=== PATIENT | female | born 1990 | race Caucasian/White ===

== ENCOUNTER → 2020-03-27 10:43 | Outpatient (BNVA) | payer MEDICAID, SELFPAY | PROVIDERS: Family Provider Family Medicine; PCP Family Medicine; Visit Provider Nurse Practitioner Women's Health | DX: O99.411 Diseases of the circulatory system complicating pregnancy, first trimester (principal); I34.1 Nonrheumatic mitral (valve) prolapse; O99.321 Drug use complicating pregnancy, first trimester; Z3A.08 8 weeks gestation of pregnancy; F12.90 Cannabis use, unspecified, uncomplicated; O99.611 Diseases of the digestive system complicating pregnancy, first trimester; K58.0 Irritable bowel syndrome with diarrhea | CPT/HCPCS: 80053; 80307; 84315 ==

== ENCOUNTER → 2020-04-15 10:02 | Outpatient (BNVA) | payer MEDICAID, SELFPAY | PROVIDERS: Family Provider Family Medicine; PCP Family Medicine; Visit Provider Obstetrics & Gynecology | DX: O09.899 Supervision of other high risk pregnancies, unspecified trimester (principal); O99.89 Other specified diseases and conditions complicating pregnancy, childbirth and the puerperium; R82.71 Bacteriuria | CPT/HCPCS: 80307; 81000; 85027; 86592; 86762; 86803; 86850; 86900; 87340 ==

== ENCOUNTER → 2020-04-16 09:09 | Outpatient (BNVA) | payer MEDICAID, SELFPAY | PROVIDERS: Family Provider Family Medicine; PCP Family Medicine; Visit Provider Obstetrics & Gynecology | DX: Z34.91 Encounter for supervision of normal pregnancy, unspecified, first trimester (principal); Z3A.11 11 weeks gestation of pregnancy | CPT/HCPCS: 76801 ==

== ENCOUNTER 2020-04-28 10:56 | Observation (INO) | payer MEDICAID, SELFPAY ==
[2020-04-28] VITALS (14 sets, daily range): BP systolic 0–129; BP diastolic 0–71; PULSE 64–86; RESP 16–18; TEMP 36.3–36.8; O2SAT 96–100; BMI 27.4
--- NOTE | 2020-04-28 11:30 | XRR_ITS ---
PROCEDURE INFORMATION: Exam: XR Chest, 1 View Exam date and time: 04/28/2020 11:31 AM Age: 29 years old Clinical indication: Dyspnea TECHNIQUE: Imaging protocol: XR of the chest Views: . Frontal portable upright view of the chest. COMPARISON: CR Chest 1 [place] [id number] 08/11/2019 1:17 PM FINDINGS: Lungs: The lungs are otherwise clear bilaterally. The pulmonary vasculature is normal. Pleural space: No pleural effusion. No pneumothorax. Heart/Mediastinum: The heart is normal in size and contour. Mediastinum: Stable. Bones/joints: Stable. Other findings: Mild pulmonary hyperexpansion. XR/XR chest 1V portable [id number] IMPRESSION: Mild pulmonary hyperexpansion.
--- NOTE | 2020-04-28 11:30 | ECG_ITS ---
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 Measurements Intervals [place] Rate: 61 P: 35 WV: 137 QRS: 91 QRSD: 96 T: 63 QT: 446 QTc: 450 Interpretive Statements SINUS RHYTHM WITH MARKED SINUS ARRHYTHMIA BORDERLINE RIGHT AXIS DEVIATION [QRS AXIS > 90] Compared to ECG 08/11/2019 13:18:19 Incomplete right bundle-branch block no longer present Electronically Signed On 04-29-2020 21:32:24 CDT by Yoselyn Perez M.D. [id number]
[2020-04-28 11:50] LABS: Basophils # 0.1 10^3/uL (0.0-0.1); Basophils % 0.4 %; Eosinophils % 0.2 %; Hematocrit 31.3 % (37.0-47.0); Hemoglobin 10.8 g/dL (11.5-15.3); Lymphocytes # 1.3 10^3/uL (0.8-4.8); Lymphocytes % 9.6 %; Mean Corpuscular HGB Conc 34.5 g/dL (30.0-36.0); Mean Corpuscular Hemoglobin 32.6 pg (28.0-34.0); Mean Corpuscular Volume 94.6 fL (81-99); Mean Platelet Volume 10.1 fL (7.4-10.4); Monocytes # 0.3 10^3/uL (0.2-0.9); Monocytes % 2.6 %; Neutrophils # 11.34 10^3/uL (1.8-7.7); Neutrophils % 86.8 %; Nucleated Red Blood Cells % 0 %; Platelet Count 228 10^3/cmm (130-400); Red Blood Count 3.31 10^6/uL (4.1-5.3); Red Cell Distribution Width 12.2 % (12.1-15.1); White Blood Count 13.1 10^3/uL (4.0-10.0)
[2020-04-28 12:17] LABS: Troponin(5th) Baseline 6 ng/L (0-10)
[2020-04-28] MEDS: metoclopramide 5 mg/mL SDV 2 mL 10 MG IV (12:20)
[2020-04-28] MEDS: morphine 4 mg/mL SDV 1 mL 2 MG IVP (12:20)
[2020-04-28 12:30] LABS: Alanine Aminotransferase 10 U/L (0-33); Albumin Level 4.3 g/dL (3.5-5.2); Alkaline Phosphatase 40 IU/L (35-105); Anion Gap 17.2 (5-19); Aspartate Amino Transferase 18 U/L (0-32); Blood Urea Nitrogen 7 mg/dL (6-20); Calcium 9.5 mg/dL (8.5-10.5); Carbon Dioxide 17 mmol/L (22-29); Chloride 101 mmol/L (98-107); Glomerular Filtration Rate 143.9 mL/min (90-130); Glucose 111 mg/dL (65-115); Lipase 19 U/L (13-60); Magnesium 1.8 mg/dL (1.7-2.3); Osmolality Calculated 271 mOsm/kg (285-295); Potassium 3.2 mmol/L (3.5-5.1); Sodium 132 mmol/L (136-145); Total Bilirubin 0.3 mg/dL (0.15-1.2); Total Protein 7.3 g/dL (6.6-8.7)
[2020-04-28] MEDS: promethazine 25 mg/mL SDV 1 mL IM (12:42)
[2020-04-28] MEDS: sodium chloride 0.9% 1,000 ML 999 ML IV ×2 (12:42→14:43)
--- NOTE | 2020-04-28 13:18 | USR_ITS ---
PROCEDURE INFORMATION: Exam: US Abdomen Complete Exam date and time: 04/28/2020 2:03 PM Age: 29 years old Clinical indication: Abdominal pain; Generalized; TECHNIQUE: Imaging protocol: Real-time ultrasound of the abdomen with image documentation. COMPARISON: US OB <= 14 weeks fetus [id number] 04/28/2020 1:36 PM FINDINGS: Liver: The liver measures 14.4 cm in the midclavicular plane. Unremarkable. Gallbladder: The gallbladder wall measures 2.6 mm. No gallstones. Common bile duct: The common bile duct measures 2.0 mm. No ductal calculi as visualized. Pancreas: Unremarkable. Right kidney: The right kidney measures 11.3 x 4.7 x 4.8 cm. The renal cortex measures 1.0 cm. Unremarkable. A brief color Doppler examination of the right kidney was performed showing normal color shifts. Left kidney: The left kidney measures 10.6 x 6.2 x 4.6 cm. The renal cortex measures 1.1 cm. Unremarkable. A brief color Doppler examination of the left kidney was performed showing normal color shifts. Spleen: The spleen measures 8.6 cm. Unremarkable. Aorta: NotThe proximal abdominal aorta measures 1.3 cm. The mid abdominal aorta measures 1.1 cm. The distal infrarenal abdominal aorta measures 0.9 cm. Inferior vena cava: Unremarkable IVC. Portal venous: A brief color and pulsed Doppler examination of the portal vein was performed showing normal hepatopedal flow. US/US abdomen complete* [id number] IMPRESSION: No acute abdominal abnormality identified.
--- NOTE | 2020-04-28 13:18 | USR_ITS ---
PROCEDURE INFORMATION: Exam: US First Trimester, Transabdominal Exam date and time: 04/28/2020 1:47 PM Age: 29 years old Clinical indication: complicated by abdominal or pelvic pain; Generalized abdominal pain; First trimester; Gestational age or lmp: Aicha per patient 2--21. Ga 12w 5d; TECHNIQUE: Imaging protocol: Real-time transabdominal obstetrical ultrasound of the maternal pelvis and a first trimester , less than 14 weeks 0 days, with image documentation. COMPARISON: US OB <= 14 weeks fetus [id number] 04/16/2020 9:09 AM FINDINGS: Gestation: Single living intrauterine fetus. Heart rate: 144 beats per minute. Presentation: Variable position. Placenta: Anterior grade 0 placenta, no previa. Amniotic fluid: Amniotic fluid is normal for gestational age. BIOMETRY: Estimated gestational age: Average ultrasound age: 12 weeks 5 days [place]-Rump length: 12 weeks 5 days. Estimated due date: AICHA 11/05/2019; compare LMP AICHA 11/05/2019. MATERNAL: Uterus: Uterus 11.9 x 8.3 x 8.7 cm. Cervix: The cervical length is 2.78 cm. Closed. Right adnexa: Not visualized. Left adnexa: Not visualized. Intraperitoneal space: No intraperitoneal free fluid. US/US OB <= 14 weeks fetus [id number] IMPRESSION: Single living intrauterine fetus. Size concordant with dates. No acute abnormality identified.
--- NOTE | 2020-04-28 13:35 | W.ED.NAVMDI ---
HPI - Nausea/Vomiting/Diarrhea General: Chief complaint: Nausea/Vomiting/Diarrhea Stated complaint: N/V/D/13 WEEKS PREG Time Seen by Provider: 04/28/20 11:20 Source: patient Mode of arrival: ambulatory Limitations: no limitations History of Present Illness: HPI Narrative: Hayden is a nice 29-year-old female who comes in complaining of nausea vomiting and diarrhea. She states she felt fine when she woke up this morning but after she had some food she began to feel nauseated and sick. She has some suprapubic pain but denies any vaginal bleeding. She denies fevers or chills. She does have cramping abdominal pain. Patient denies any chest pain but does have intermittent shortness of breath and according to bystanders she is nearly passed out at times upon standing. Again she denies any chest pain or palpitations. Patient states she has a history of problems with her stomach that are ongoing and she cannot tolerate multiple medications. She is unaware of anything that makes her symptoms better or worse at this time. Associated nausea: Yes Associated symtoms: Reports nausea; Denies change in vision, chest pain, diaphoresis, dizziness, dysuria, fatigue, headache(s), malaise, palpitations or syncope Review of Systems Const: Denies: fever(s), chills, body aches, fatigue, malaise or diaphoresis Eyes: Denies: change in vision, blurry vision, blind spots, photophobia, eye discharge or eye redness ENMT: Denies: throat pain, odynophagia, hoarseness, swelling of lips/tongue, oral sores, ear or mastoid pain, ear discharge, change in hearing or nasal discharge Card: Denies: chest pain, palpitations, irregular heart rhythm, edema, lightheadedness, syncope, pre-syncope, dyspnea on exertion or orthopnea Resp: Denies: dyspnea, productive cough, non-productive cough, wheezing, hemoptysis or chest congestion GI: Reports: abdominal pain, nausea, vomiting and diarrhea; Denies: hematemesis, coffee ground emesis, heartburn, constipation, GI cramping, hematochezia or melena : Denies: flank pain, dysuria, urinary frequency, urinary urgency or hematuria Musc: Denies: neck pain, back pain, extremity pain, extremity swelling, joint pain, joint swelling, joint redness, joint warmth or joint stiffness Skin/Breast: Denies: rash, pruritus, erythema, skin tenderness or jaundice Neuro: Denies: headache(s), numbness in extremities, weakness in extremities, sensory changes, lack of coordination, difficulty walking, dizziness, vertigo, confusion, Slurred speech present or seizure-like activity Baljit/Lymph: Denies: easy bruising, easy bleeding, petechiae, purpura or enlarged lymph nodes All/Imm: Denies: urticaria, throat swelling, tongue swelling, facial swelling or acute wheezing PFSH ED PFSH: Medical History Anxiety IBS (irritable bowel syndrome) more diarrhea Mitral valve prolapse Surgical History H/O lumpectomy Left breast lumpectomy - benign per patient at age 15. History of tonsillectomy (~1996) Family History Mother Hypertension Hyperlipidemia Grandmother Stroke Paternal grandmother Breast cancer Paternal great grandmother Sister Family history of thyroid problem Denies family history of Colon cancer Ovarian cancer Diabetes Heart disease Uterine cancer Social History Additional social history: - Tobacco use: Past use; quit in 2015 Alcohol use: Social before Drug use: Marijuana; last use 03/2020-- denies use prior to this except for Physical Exam Const: COMMON NORMALS: no acute distress, patient oriented x3, no limitations, healthy appearing and well nourished GENERAL APPEARANCE: cooperative, well kempt and well developed HENMT: COMMON NORMALS: normocephalic, atraumatic, external ears normal, EAC's normal and Normal external nose present HEAD & SCALP: normal to inspection, normocephalic and atraumatic FACE & SINUS: normal facial exam and face symmetric NOSE: Normal external nose present and Normal nares present EXTERNAL EAR: Yes external ears normal EXTERNAL AUDITORY CANAL: EAC's normal MOUTH: Normal oral and palatal mucosa present, lip normal and tongue normal Eye: COMMON NORMALS: Equal, round and reactive pupils present and conjunctivae normal GENERAL EYE: appearance normal, both eyes and all related structures ALIGNMENT: Yes alignment normal PERIORBITAL: periorbital findings normal EYELID: eyelids normal CONJUNCTIVA: Yes conjunctivae normal SCLERA: sclerae normal PUPIL: Yes Equal, round and reactive pupils present Neck/C-Spine: COMMON NORMALS: full ROM, no lymphadenopathy, supple, no meningeal signs and no JVD GENERAL: Yes normal visual inspection and Yes trachea midline Chest: COMMONS NORMALS: normal inspection of the chest and normal palpation of entire chest wall Resp: COMMON NORMALS: normal respiratory effort, No retractions and No use of accessory muscles EFFORT & INSPECTION: Yes able to speak in complete sentences and Yes symmetric chest movement AUSCULTATION: no crackles, no rales, no rhonchi and no wheezes Cardio: COMMON NORMALS: no JVD, regular rate, regular rhythm, S1 normal heart sound present and S2 normal heart sound present RATE: regular rate RHYTHM: regular rhythm HEART SOUNDS: S1 normal heart sound present, S2 normal heart sound present, no click, no gallops, no murmurs, no rubs and abnormal split S2 GI: COMMON NORMALS: Soft to palpation and No hepatosplenomegaly present PALPATION: Yes Soft to palpation, No Tenderness to palpation present (GI), No Guarding due to palpation present (GI), No Rigid due to palpation, Yes No hepatosplenomegaly present, No Hernia present, No Palpable mass present and No Pulsatile mass present : COMMON NORMALS: Yes no CVA tenderness BLADDER/KIDNEY EXAM: Yes no CVA tenderness EXTERNAL FEMALE EXAM: No Hernia present Back/Pelvis: COMMON NORMALS: no CVA tenderness, thoracic and lumbar spine normal to inspection, no thoracic nor lumbar tenderness and thoraco-lumbar ROM normal Extremity: COMMON NORMALS: normal to inspection, full ROM, capillary refill normal, no joint enlargement, no clubbing, cyanosis or edema and no calf tenderness Neuro: COMMON NORMALS: patient oriented x3, CN's II-XII intact bilaterally, moves all extremities, no focal motor deficits and no sensory deficits noted MENINGEAL SIGNS: Yes no meningeal signs SPEECH: speech normal Psych: COMMON NORMALS: mental status grossly normal, Normal thought process present, cooperative, normal affect, speech normal and activity/motor behavior normal APPEARANCE: Yes well kempt SPEECH: Yes normal speech THOUGHT PROCESS: Normal thought process present Skin: COMMON NORMALS: no rashes or lesions noted, turgor normal, no jaundice, no petechiae and no mottling GENERAL SKIN EXAM: no rashes or lesions noted and turgor normal Course Vital Signs: Vital signs: Vital Signs Temperature 97.4 F L 04/28/20 11:04 Pulse Rate 75 04/28/20 14:52 Respiratory Rate 18 04/28/20 14:52 Blood Pressure 106/55 04/28/20 14:52 Pulse Oximetry 96 04/28/20 14:52 MDM - Nausea/Vomiting/Diarrhea MDM Narrative: Medical decision making narrative: Patient has not had any diarrhea or fever here. Her white count is within normal limits for a patient. Her abdominal cramping is gone but she is still severely nauseous and cannot tolerate taking anything by mouth. On reexamination I do not find signs of a surgical abdomen. I have reviewed the case in full with Dr. Escamilla and she agrees to accept the patient to the floor for further work-up and care. Lab Data: Attestation: I reviewed the patient's lab results. Labs: Lab Results 04/28/20 04/28/20 04/28/20 Range/Units 11:43 11:43 11:43 WBC 13.1 H (4.0-10.0) 10^3/ uL RBC 3.31 L (4.1-5.3) 10^6/u L Hgb 10.8 L (11.5-15.3) g/dL Hct 31.3 L (37.0-47.0) % MCV 94.6 (81-99) fL MCH 32.6 (28.0-34.0) pg MCHC 34.5 (30.0-36.0) g/dL RDW 12.2 (12.1-15.1) % Plt Count 228 (130-400) 10^3/c mm MPV 10.1 (7.4-10.4) fL Neut % (Auto) 86.8 % Lymph % (Auto) 9.6 % [place] % (Auto) 2.6 % Eos % (Auto) 0.2 % Baso % (Auto) 0.4 % Neut # (Auto) 11.34 H (1.8-7.7) 10^3/u L Lymph # (Auto) 1.3 (0.8-4.8) 10^3/u L [place] # (Auto) 0.3 (0.2-0.9) 10^3/u L Eos # (Auto) 0.0 (0.0-0.8) 10^3/u L Baso # (Auto) 0.1 (0.0-0.1) 10^3/u L Nucleated RBC % (a uto) 0 % Nucleated RBCs # 0.0 /100WBC Sodium 132 L (136-145) mmol/L Potassium 3.2 L (3.5-5.1) mmol/L Chloride 101 (98-107) mmol/L Carbon Dioxide 17 L (22-29) mmol/L Anion Gap 17.2 (5-19) BUN 7 (6-20) mg/dL Creatinine 0.5 (0.5-0.9) mg/dL GFR Calculation 143.9 H (90-130) mL/min Glucose 111 (65-115) mg/dL Calculated Osmolal ity 271 L (285-295) mOsm/k g Calcium 9.5 (8.5-10.5) mg/dL Magnesium 1.8 (1.7-2.3) mg/dL Total Bilirubin 0.3 (0.15-1.2) mg/dL AST 18 (0-32) U/L ALT 10 (0-33) U/L Alkaline Phosphata se 40 (35-105) IU/L Troponin T Baselin e 6 (0-10) ng/L Troponin T 120 Min [place] (0-10) ng/L Delta Troponin T (0-10) ABS# Total Protein 7.3 (6.6-8.7) g/dL Albumin 4.3 (3.5-5.2) g/dL Globulin 3.0 (1.3-4.6) g/dL Lipase 19 (13-60) U/L Ser , [place]Qnt 13008.00 mIU/mL 04/28/20 Range/Units 13:35 WBC (4.0-10.0) 10^3/ uL RBC (4.1-5.3) 10^6/u L Hgb (11.5-15.3) g/dL Hct (37.0-47.0) % MCV (81-99) fL MCH (28.0-34.0) pg MCHC (30.0-36.0) g/dL RDW (12.1-15.1) % Plt Count (130-400) 10^3/c mm MPV (7.4-10.4) fL Neut % (Auto) % Lymph % (Auto) % [place] % (Auto) % Eos % (Auto) % Baso % (Auto) % Neut # (Auto) (1.8-7.7) 10^3/u L Lymph # (Auto) (0.8-4.8) 10^3/u L [place] # (Auto) (0.2-0.9) 10^3/u L Eos # (Auto) (0.0-0.8) 10^3/u L Baso # (Auto) (0.0-0.1) 10^3/u L Nucleated RBC % (a uto) % Nucleated RBCs # /100WBC Sodium (136-145) mmol/L Potassium (3.5-5.1) mmol/L Chloride (98-107) mmol/L Carbon Dioxide (22-29) mmol/L Anion Gap (5-19) BUN (6-20) mg/dL Creatinine (0.5-0.9) mg/dL GFR Calculation (90-130) mL/min Glucose (65-115) mg/dL Calculated Osmolal ity (285-295) mOsm/k g Calcium (8.5-10.5) mg/dL Magnesium (1.7-2.3) mg/dL Total Bilirubin (0.15-1.2) mg/dL AST (0-32) U/L ALT (0-33) U/L Alkaline Phosphata se (35-105) IU/L Troponin T Baselin e (0-10) ng/L Troponin T 120 Min [place] 6.00 (0-10) ng/L Delta Troponin T 0 (0-10) ABS# Total Protein (6.6-8.7) g/dL Albumin (3.5-5.2) g/dL Globulin (1.3-4.6) g/dL Lipase (13-60) U/L Ser , Shyam i-Qnt mIU/mL Imaging Data^: US: Radiologist's impression: [address] [address] Ultrasound Report Signed Patient: Hayden Stewart Unit #: [id number] : 1990 Age/Sex: 29 / F ADM Date: 04/28/20 Loc: ER Room/Bed: Attending Dr: Ordering Provider/Ordering MD: Carmenza Barreto DO Date of Service: 04/28/20 Procedure(s): US abdomen complete* [id number] Accession Number(s): [id number] Report Number: [id number] PROCEDURE INFORMATION: Exam: US Abdomen Complete Exam date and time: 04/28/2020 2:03 PM Age: 29 years old Clinical indication: Abdominal pain; Generalized; TECHNIQUE: Imaging protocol: Real-time ultrasound of the abdomen with image documentation. COMPARISON: US OB <= 14 weeks fetus [id number] 04/28/2020 1:36 PM FINDINGS: Liver: The liver measures 14.4 cm in the midclavicular plane. Unremarkable. Gallbladder: The gallbladder wall measures 2.6 mm. No gallstones. Common bile duct: The common bile duct measures 2.0 mm. No ductal calculi as visualized. Pancreas: Unremarkable. Right kidney: The right kidney measures 11.3 x 4.7 x 4.8 cm. The renal cortex measures 1.0 cm. Unremarkable. A brief color Doppler examination of the right kidney was performed showing normal color shifts. Left kidney: The left kidney measures 10.6 x 6.2 x 4.6 cm. The renal cortex measures 1.1 cm. Unremarkable. A brief color Doppler examination of the left kidney was performed showing normal color shifts. Spleen: The spleen measures 8.6 cm. Unremarkable. Aorta: NotThe proximal abdominal aorta measures 1.3 cm. The mid abdominal aorta measures 1.1 cm. The distal infrarenal abdominal aorta measures 0.9 cm. Inferior vena cava: Unremarkable IVC. Portal venous: A brief color and pulsed Doppler examination of the portal vein was performed showing normal hepatopedal flow. US/US abdomen complete* [id number] IMPRESSION: No acute abdominal abnormality identified. Dictated By: Nico Lima MD Signed By: Nico Lima MD Signed Date/Time: 04/28/201433 DD/ 1433 US OB: Radiologist's impression: [address] [place] [address] Ultrasound Report Signed Patient: Hayden Stewart Unit #: [id number] : 1990 Age/Sex: 29 / F ADM Date: 04/28/20 Loc: ER Room/Bed: Attending Dr: Ordering Provider/Ordering MD: Carmenza Barreto DO Date of Service: 04/28/20 Procedure(s): US OB <= 14 weeks fetus [id number] Accession Number(s): [id number] Report Number: [id number] PROCEDURE INFORMATION: Exam: US First Trimester, Transabdominal Exam date and time: 04/28/2020 1:47 PM Age: 29 years old Clinical indication: complicated by abdominal or pelvic pain; Generalized abdominal pain; First trimester; Gestational age or lmp: Aicha per patient 11-05-20. Ga 12w 5d; TECHNIQUE: Imaging protocol: Real-time transabdominal obstetrical ultrasound of the maternal pelvis and a first trimester , less than 14 weeks 0 days, with image documentation. COMPARISON: US OB <= 14 weeks fetus [id number] 04/16/2020 9:09 AM FINDINGS: Gestation: Single living intrauterine fetus. Heart rate: 144 beats per minute. Presentation: Variable position. Placenta: Anterior grade 0 placenta, no previa. Amniotic fluid: Amniotic fluid is normal for gestational age. BIOMETRY: Estimated gestational age: Average ultrasound age: 12 weeks 5 days [place]-Rump length: 12 weeks 5 days. Estimated due date: AICHA 11/05/2019; compare LMP AICHA 11/05/2019. MATERNAL: Uterus: Uterus 11.9 x 8.3 x 8.7 cm. Cervix: The cervical length is 2.78 cm. Closed. Right adnexa: Not visualized. Left adnexa: Not visualized. Intraperitoneal space: No intraperitoneal free fluid. US/US OB <= 14 weeks fetus [id number] IMPRESSION: Single living intrauterine fetus. Size concordant with dates. No acute abnormality identified. Dictated By: Nico Lima MD Signed By: Nico Lima MD Signed Date/Time: 04/28/20 143 DD/ 143 EKG Data^: EKG 1: Attestation: I personally reviewed and interpreted this EKG as follows: EKG interpretation date: 04/28/20 EKG interpretation time: 12:59 Interpretation: Normal sinus rhythm at 61 beats a minute without any acute ST-T wave changes. No blocks, normal intervals. Discharge Plan Discharge Patient Disposition: Admitted As Inpatient Admit Provider: Vaishali Mukherjee Clinical Impression: Acute dehydration Intractable vomiting Qualifiers: Vomiting type: unspecified Nausea presence: with nausea Qualified Code(s): R11.2 - Nausea with vomiting, unspecified Condition: Stable Discharge Date/Time: 04/28/20 15:03 Coding Level of Care Code ED Assistant Branch Operations Manager for Chg Fwd Exam Comprehensive
[2020-04-28 14:08] LABS: Troponin 5 2HR Delta 0 ABS# (0-10)
[2020-04-28 14:52] LABS: Urine Appearance Clear (CLEAR); Urine Color Yellow (Yellow); pH Urine 6 (5-7)
[2020-04-28 14:53] LABS: Add Urine Culture? No; Bacteria Urine 1+; Bilirubin Urine Neg (NEGATIVE); Blood Urine Neg (Negative); Glucose Urine UA Norm (Normal); Ketones Urine Negative (Negative); Leukocyte Esterase Urine Negative (Negative); Nitrate Urine Negative (Negative); Protein Urine Neg (Negative); Urobilinogen Urine Norm (Negative)
--- NOTE | 2020-04-28 15:03 | PC.NURSE ---
k rider stopped prior to floor transfer due to pump issues and portable monitor unavailable for use
[2020-04-28] MEDS: ondansetron 2 mg/ML SDV 2 mL 4 MG IVP (15:42)
[2020-04-28] MEDS: D5-NS 0.45% + KCL 20 mEq 20 MEQ/1,000 ML BAG 150 MEQ IV (16:00)
--- NOTE | 2020-04-28 16:17 | PC.NURSE ---
Patient demanding to shower r/t her anxiety at this time. Patient's IV covered and patient up to shower. Will continue to monitor closely.
--- NOTE | 2020-04-28 17:26 | PC.NURSE ---
Medical Assistant in to see patient and explain visiting hours to guest. Patient sitting in the floor of shower with IV covered with wash cloth. Patient informed that if IV gets disconnected or comes out that a new one would need to be initiated. Medical Assistant explained to patient why patient needed IV hydration with potassium. Patient verbalized understanding and states she will keep IV dry but she has to be in the shower as its the only thing that calms her down. Will continue to monitor.
[2020-04-28] MEDS: metoclopramide 5 mg/mL SDV 2 mL IVP (17:43)
[2020-04-28] MEDS: promethazine 25 mg Tablet PO (19:07)
[2020-04-28 19:23] LABS: Amphetamines Screen Urine Negative (Negative); Barbiturates Screen Urine Negative (Negative); Benzodiazepines Screen Urine Negative (Negative); Cocaine Screen Urine Negative (Negative); Opiate Screen Urine Negative (Negative); PCP Screen Urine Negative (Negative); THC Screen Urine Positive (Negative)
--- NOTE | 2020-04-28 20:21 | PC.NURSE ---
Pt. stated that she was getting heartburn and wanted her water back. Pt. was informed that she was npo. Pt. was educated on why she was npo. Pt. then wanted to get up and take a shower. Pt. informed that she needed to let her IV fluid run longer and that I would let her shower at 2200. Pt. voiced understanding.
[2020-04-29] MEDS: D5-NS 0.45% + KCL 20 mEq 20 MEQ/1,000 ML BAG 150 MEQ IV ×2 (00:04→06:35)
[2020-04-29] MEDS: promethazine 25 mg Tablet PO (01:53)
[2020-04-29] MEDS: metoclopramide 5 mg/mL SDV 2 mL IVP (02:36)
[2020-04-29 04:28] VITALS: BP 124/62; PULSE 56
[2020-04-29 04:30] VITALS: BP 124/62; PULSE 56; RESP 16; TEMP 37.2
--- NOTE | 2020-04-29 06:10 | PC.NURSE ---
4 oz of Sprite was left at pts. bedside.
[2020-04-29] MEDS: metoclopramide 10 mg Tablet 5 MG PO (10:20)
[2020-04-29 10:24] VITALS: BP 98/45; PULSE 72; RESP 18; TEMP 36.9
--- NOTE | 2020-04-29 11:02 | PC.NURSE ---
Patient states shes feeling good. No nausea. Crackers given at this time.
--- NOTE | 2020-04-29 11:45 | PC.NURSE ---
REGULAR BLAND DIET GIVEN FOR LUNCH AT THIS TIME.
--- NOTE | 2020-04-29 12:46 | P.DS_ITS ---
Discharge Providers Date of Admission: 04/28/20 14:15 Date of Discharge: April 29, 2020 Attending Provider at Admission: Vaishali Mukherjee MD Attending Provider at Discharge: Vaishali Mukherjee MD Primary Care Provider: Carly Alvarez DO Reason for Visit Reason for Visit: N/V/D/13 WEEKS PREG Hospital Course Discharge Summary: Ms. Stewart is a 29-year-old 4 para 2-0-1-2 at 12+ week gestation who came to the emergency room on 04/28/2020 with reports of nausea, vomiting and diarrhea. She was unable to keep anything down and was not taking any medications for nausea. She does report having mitral valve prolapse however was not taking any medication on the recommendation of her director of enterprise architecture until she had her visit with the BUDGET OFFICER. She denies any vaginal bleeding, abdominal pain. She feels like she may have eaten something that does not agree with her. She denies chest pain, shortness of breath, fever, chills. On e valuation in the emergency room labs were within normal limits except for low potassium and as she felt very weak and tired and was unable to keep down any food decision was made to observe her overnight. -She was initially kept n.p.o. and was given Phenergan and Reglan and 1 dose of Zofran to help control nausea. This helped her symptoms well and overnight she remained asymptomatic and was given a bland regular diet the next morning after she was able to tolerate clears. She had a couple more episodes of diarrhea and after that had more solid forming stools. She had no episodes of vomiting while in the hospital. The next morning she continued to do well and overall felt much better after IV fluid hydration and potassium replacement. She was discharged home in a stable condition and was scheduled to follow-up with her primary OB Dr. Olsen in 2 days. -She was sent home with a prescription of Reglan to be taken on schedule to prevent nausea. She was educated thoroughly about nausea and vomiting in . Discharge Data Data Completed and Pending: Completed Studies During Hospitalization Category Date Time Status XR chest 1V julio ble [id number] Stat Exams 04/28/20 11:30 Completed US OB <= 14 weeks fetus [id number] Urgen t Ultrasound 04/28/20 13:18 Completed US abdomen comple te* [id number] Urgent Ultrasound 04/28/20 13:18 Completed Labs from last 24 hours 04/28/20 04/28/20 04/28/20 14:20 14:20 13:35 Troponin T 120 Min [place] 6.00 Delta Troponin T 0 Urine Color Yellow Urine Appearance Clear Urine pH 6 Ur Specific Gravit y 1.020 Urine Protein Neg Urine Glucose (UA) Norm Urine Ketones Negative Urine Blood Neg Urine Nitrate Negative Urine Bilirubin Neg Urine Urobilinogen Norm Ur Leukocyte Leonela ase Negative Urine RBC None Urine WBC None Ur Squamous Epith Cells 5-10 H Amorphous Sediment Not Reportable Urine Bacteria 1+ H Urine Opiates Scre en Negative Ur Barbiturates Sc reen Negative Ur Phencyclidine S crn Negative Ur Amphetamines Sc reen Negative U Benzodiazepines Scrn Negative Urine Cocaine Scre en Negative U Marijuana (THC) Screen Positive H Vitals: Last Vital Signs Temp 98.5 F 04/29/20 10:24 Pulse 72 04/29/20 10:24 Resp 18 04/29/20 10:24 BP 98/45 04/29/20 10:24 Pulse Ox 96 04/28/20 14:52 Discharge Plan Discharge Patient Disposition: Home Condition: Stable Prescriptions: No Action prenat.vits,alan,ejx-[id number] Tablet 2 tab PO DAILY RF: 0 carvedilol 3.125 mg tablet 3.125 mg PO ONCE RF: 0 magnesium gluconate [Mag-G] 27 mg magnesium (500 mg) tablet 27 mg PO DAILY RF: 0 potassium chloride 10 mEq tablet extended release 10 meq PO DAILY RF: 0 Discharge Orders: Discharge Order (Routine); Ordered 04/29/20 Ordered By: Vaishali Mukherjee Patient Instructions: Movement (DC), OB Undelivered Discharge Activity Restrictions/Additional Instructions: Nurse called in prescription to [facility] for Reglan 5 MG Q6HR for 3 weeks. Discharge Date/Time: 04/29/20 14:45 Discharge Attestations Time Spent in Discharge Care*: greater than 30 min Quality Metrics Clinical Quality Measures During this hospital stay, did patient experience: None Coding Level of Care Code Acute Education Rep for Agustin Vega
--- NOTE | 2020-04-29 14:01 | PC.NURSE ---
Patient up walking around room, cleaning. She stated she ate a piece of bread and some mash potatoes and feels pretty good. Patient has not vomited today and states she is ready to go home.
[2020-04-29 14:41] VITALS: BP 108/58; PULSE 66
[2020-04-29 14:44] VITALS: RESP 18; TEMP 37.2
[2020-04-29 14:45] VITALS: BP 108/58; PULSE 66; RESP 18; TEMP 37.2
== END 2020-04-29 14:45 | disposition home or self-care (01) ==
LOC: ER 11:58 → OBGYN 14:44
PROVIDERS: Admitting Provider Obstetrics & Gynecology; Emergency Provider Emergency Medicine; Family Provider Family Medicine; PCP Family Medicine; Visit Provider Obstetrics & Gynecology
DX: O21.9 Vomiting of pregnancy, unspecified (principal); Z3A.12 12 weeks gestation of pregnancy; E86.0 Dehydration
CPT/HCPCS: 12345; 36415; 71045; 76700; 76801; 80053; 80306; 81001; 83690; 83735; 84484; 84702; 85025; 93005; 96361; 96365; 96366; 96372; 96375; 99283; 99285; G0378; J2270; J2405; J2550; J2765; J3480; J7030; J8597; Q0169

== ENCOUNTER → 2020-05-01 13:58 | Outpatient (BNVA) | payer MEDICAID, SELFPAY | PROVIDERS: Family Provider Family Medicine; PCP Family Medicine; Visit Provider Obstetrics & Gynecology | DX: O09.899 Supervision of other high risk pregnancies, unspecified trimester (principal); Z12.4 Encounter for screening for malignant neoplasm of cervix | CPT/HCPCS: 81000; 87491; 87591; 88175 ==

== ENCOUNTER → 2020-05-07 10:30 | Outpatient (BNVA) | payer MEDICAID, SELFPAY | PROVIDERS: Family Provider Family Medicine; PCP Family Medicine; Visit Provider Obstetrics & Gynecology | DX: O09.899 Supervision of other high risk pregnancies, unspecified trimester (principal); O26.891 Other specified pregnancy related conditions, first trimester; O21.1 Hyperemesis gravidarum with metabolic disturbance; Z12.4 Encounter for screening for malignant neoplasm of cervix | CPT/HCPCS: 80048; 83735 ==

== ENCOUNTER → 2020-05-22 14:07 | Outpatient (BNVA) | payer MEDICAID, SELFPAY | PROVIDERS: Family Provider Family Medicine; PCP Family Medicine; Visit Provider Nurse Practitioner Women's Health | DX: Z34.90 Encounter for supervision of normal pregnancy, unspecified, unspecified trimester (principal) | CPT/HCPCS: 81000 ==

== ENCOUNTER → 2020-06-20 08:10 | Outpatient (BNVA) | payer MEDICAID, SELFPAY | PROVIDERS: Family Provider Family Medicine; PCP Family Medicine; Visit Provider Obstetrics & Gynecology | DX: O26.891 Other specified pregnancy related conditions, first trimester (principal); O99.89 Other specified diseases and conditions complicating pregnancy, childbirth and the puerperium; R82.71 Bacteriuria; I34.1 Nonrheumatic mitral (valve) prolapse; Z67.91 Unspecified blood type, Rh negative | CPT/HCPCS: 76805 ==

== ENCOUNTER → 2020-06-24 12:58 | Outpatient (BNVA) | payer MEDICAID, SELFPAY | PROVIDERS: Family Provider Family Medicine; PCP Family Medicine; Visit Provider Obstetrics & Gynecology | DX: Z34.90 Encounter for supervision of normal pregnancy, unspecified, unspecified trimester (principal) | CPT/HCPCS: 81000 ==

== ENCOUNTER 2020-06-26 16:25 | Observation (INO) | payer MEDICAID, SELFPAY ==
[2020-06-26] VITALS (25 sets, daily range): BP systolic 0–115; BP diastolic 0–60; PULSE 72–98; RESP 18; TEMP 36.7–36.8; BMI 22.4
--- NOTE | 2020-06-26 16:51 | US_ITS ---
WS: [id number] OB ultrasound, 06/26/2020 OB ultrasound, 06/20/2020. Clinical Data: weight,placenta, fluid level, look for possible nuchal Comparison: None. Findings: There is a single intrauterine in the vertex presentation. The cervix measures 4.66 cm and is closed The placenta is Anterior and grade 1. TAVARES measures 11.56 cm The heart rate is 147 emre ts per minute. No nuchal fold or enlargement was seen. Measurements of growth and development: BPD: 5.1 cm 21 weeks 2 days HC: 19.5 cm 21 weeks 5 days AC: 16.5 cm 21 weeks 4 days FL: 3.7 cm 21 weeks 4 days The estimated weight is 434 or approximately 15 ounces The estimated gestational age is 21w4d w ith an AICHA of approximately 11/02/2020. / OB limited [id number] Impression: 1. Single intrauterine in vertex presentation. 2. Estimated gestational age 21w4d with an AICHA of 11/02/2020. 3. heart rate 147 beats per minute.
[2020-06-26 17:33] LABS: Urine Appearance Clear (CLEAR); Urine Color Colorless (Yellow)
[2020-06-26 17:34] LABS: Add Urine Culture? No; Bacteria Urine TRACE /hpf; Bilirubin Urine Neg (Negative); Blood Urine Neg (Negative); Glucose Urine UA Norm (Normal); Ketones Urine Negative (Negative); Leukocyte Esterase Urine Negative (Negative); Nitrate Urine Negative (Negative); Protein Urine Neg (Negative); Specific Gravity, Urine 1.005 (1.005-1.030); Squamous Epithelial Cell Urine 0-4 /hpf (0-5); Urobilinogen Urine Neg (Negative); pH Urine 7 (5-7)
[2020-06-26] MEDS: acetaminophen 325 mg Tablet 650 MG PO ×2 (17:34→22:54)
[2020-06-26] MEDS: NIFEdipine 10 mg Capsule PO (18:52)
[2020-06-26] MEDS: lactated ringers 1,000 ML 999 ML IV (21:45)
[2020-06-26] MEDS: NIFEdipine 10 mg Capsule 20 MG PO (22:55)
[2020-06-26] MEDS: metoclopramide 10 mg Tablet PO (23:35)
[2020-06-27] VITALS (21 sets, daily range): BP systolic 0–114; BP diastolic 0–56; PULSE 75–96; RESP 18; TEMP 36.7–37.1
[2020-06-27] MEDS: acetaminophen 325 mg Tablet 650 MG PO (08:14)
--- NOTE | 2020-06-27 09:02 | P.DS_ITS ---
Discharge Providers DIRECTOR ONLINE MARKETING Date of Admission: 06/26/20 16:25 Date of Discharge: 06/27/20 Attending Provider at Admission: Dhaval Ash MD Attending Provider at Discharge: Dhaval Ash MD Primary Care Provider: Carly Alvarez DO Reason for Visit Reason for Visit: Pelvic pain contractions Brief History: 30-year-old female with an estimated gestational age of 21 weeks with a history of endometrial lap prolapse came to labor and delivery complaining of contractions. Hospital Course Hospital Course: 29 year old, 4, Para 2-0-1-2 with an LMP of 01/30/2020 and an AICHA of 11/05/2020 based on LMP, placing her at 21 weeks today. Came to labor and delivery complaining of contractions. She was noted to have uremia variability, but also heart tracing shows some variable decelerations. Ultrasound was ordered, normal regarding fluid was noted, no nuchal cord was noted. Tocolysis with nifedipine was given, and utetrine irritability subsided. No cervical changes were noted. Patient refers feeling fine after overnight observation. She is scheduled to see envelope cutter today due to urethral valve prolapse in . Physical Exam Const: COMMON NORMALS: no acute distress, patient oriented x3 and well nourished GENERAL APPEARANCE: cooperative and well kempt Chest: CHEST: Yes Symmetrical chest wall rise Resp: COMMON NORMALS: normal respiratory effort Cardio: COMMON NORMALS: regular rate and regular rhythm RATE: regular rate RHYTHM: regular rhythm GI: INSPECTION: Yes gravid abdomen PALPATION: No Tenderness to palpation present (GI) : UTERUS PALPATION: No Uterus tender Extremity: COMMON NORMALS: normal to inspection; negative for no pedal edema Neuro: COMMON NORMALS: patient oriented x3 and moves all extremities SPEECH: speech normal GAIT: Yes Normal gait present Psych: COMMON NORMALS: mental status grossly normal, Normal thought process present and speech normal APPEARANCE: Yes grossly normal and Yes well kempt ATTITUDE: Yes calm and Yes engaged ACTIVITY/MOTOR BEHAVIOR: Yes appropriate eye contact SPEECH: Yes normal speech MOOD & AFFECT: Yes euthymic mood THOUGHT PROCESS: Normal thought process present Skin: COMMON NORMALS: no rashes or lesions noted GENERAL SKIN EXAM: no rashes or lesions noted Discharge Data Data Completed and Pending: Pending at discharge Category Date Time Status US OB limited [id number] Routine Ultrasound 06/26/20 16:51 Taken Labs from last 24 hours 06/26/20 16:55 Urine Color Colorless Urine Appearance Clear Urine pH 7 Ur Specific Gravit y 1.005 Urine Protein Neg Urine Glucose (UA) Norm Urine Ketones Negative Urine Blood Neg Urine Nitrate Negative Urine Bilirubin Neg Urine Urobilinogen Neg Ur Leukocyte Leonela ase Negative Urine RBC None Urine WBC None Ur Squamous Epith Cells 0-4 H Amorphous Sediment Not Reportable Urine Bacteria Trace Vitals: Last Vital Signs Temp 98.0 F 06/27/20 08:46 Pulse 90 06/27/20 08:46 Resp 18 06/27/20 08:46 BP 114/54 06/27/20 08:46 Discharge Plan Discharge Patient Disposition: Home Condition: Stable Prescriptions: Continued prenat.vits,alan,vsh-nejs-sonyv Tablet 2 tab PO DAILY RF: 0 folic acid 1 mg tablet 1 mg PO DAILY RF: 0 ferrous sulfate 325 mg (65 mg iron) tablet,delayed release (DR/EC) 325 mg PO DAILY RF: 0 metoclopramide HCl [Reglan] 10 mg tablet 10 mg PO Q6H PRN (Reason: nausea and vomiting) Qty: 120 RF: 0 calcium carbonate-vitamin D3 [Calcium 600 with Vitamin D3] 600 mg(1,500mg) - 500 unit capsule PO DAILY RF: 0 carvedilol 3.125 mg tablet 3.125 mg PO ONCE RF: 0 potassium chloride 10 mEq tablet extended release 10 meq PO DAILY RF: 0 Discharge Orders: Discharge Order (Routine); Ordered 06/27/20 Ordered By: Dhaval Ash Referrals: Dhaval Ash MD [Physician] - 1 week Discharge Diet: As Directed Discharge Activity: Limit activity as instructed Patient Instructions: Nifedipine (By mouth), Acetaminophen (By mouth), OB Undelivered Discharge Activity Restrictions/Additional Instructions: Pelvic rest for 6 weeks (no sex, no tampons, no vaginal douches). Return to the emergency room if any fever, bleeding or pain. Discharge Attestations DIRECTOR ONLINE MARKETING Time Spent in Discharge Care*: greater than 30 min Specific Discharge Activities: Specific discharge activities: educating patient Coding Level of Care Code Acute Surface Boss for Agustin Vega
== END 2020-06-27 09:20 | disposition home or self-care (01) ==
PROVIDERS: Admitting Provider Obstetrics & Gynecology; Family Provider Family Medicine; PCP Family Medicine; Visit Provider Obstetrics & Gynecology
DX: O26.892 Other specified pregnancy related conditions, second trimester (principal); Z3A.21 21 weeks gestation of pregnancy; R10.2 Pelvic and perineal pain; Z87.42 Personal history of other diseases of the female genital tract
CPT/HCPCS: 12345; 76815; 81001; 99211; G0378; G0379; J8597

== ENCOUNTER 2020-07-02 09:10 | Outpatient (CLI) | payer MEDICAID, SELFPAY ==
--- NOTE | 2020-07-02 09:30 | MR_ITS ---
WS: [id number] MRI HEAD WITHOUT CONTRAST ATTENTION TO THE INTERNAL AUDITORY CANALS TECHNIQUE: Sagittal T1, T2 axial, T2 axial flair, axial susceptibility weighted imaging, axial diffus ion weighted images, and coronal T2 images were obtained. Pre T1 axial and T1 coronal images. ADC and FSPGR images. Contrast was not administered. Patient is 22 weeks CLINICAL INFORMATION: HEARING LOSS COMPARISON: None. FINDINGS: No evidence of restricted diffusion to suggest acute ischemia. Ventricular system and basal cisterns are patent. No suspicious intracranial signal normalities. Normal pang-white differentiation. A few s mall patchy foci of T2 hyperintensity in the supratentorial white matter nonspecific in a patient thi s age but can be seen with hypertension, diabetes, collagen vascular disease, and migraine headaches. No significant parenchymal volume loss. Normal posterior fossa. Normal vascular flow voids at the skull base. No extra-axial fluid collection s. No evidence of mass or mass effect. No hemosiderin on susceptibly weighted images. Proximal 7th and 8th cranial nerves are normal in appearance. No evidence of IAC or CP angle mass. No rmal trigeminal nerve root entry zones. Temporal lobes and hippocampal formations are normal in appea josefina. Normal optic chiasm. Paranasal sinuses and mastoid air cells are well aerated. MR/MR iac's wo con [id number] IMPRESSION: 1. No evidence of restricted diffusion to suggest acute ischemia. 2. Mild patchy supratentorial white matter changes nonspecific in a patient th is age but can be seen with hypertension, diabetes, collagen vascular disease, and migraine headaches. 3. Paranasal sinuses and mastoid air cells are well aerated. 4. Proximal 7th and 8th cranial nerves are normal in appearance. Normal trigem inal nerve root entry zones. Inner ear structures appear normal. 5. Temporal lobes and hippocampal formations are normal in appearance. 6. No hemosiderin on susceptibly weighted images.
== END 2020-07-02 09:11 | disposition home or self-care (01) ==
LOC: RADWPI 09:13
PROVIDERS: Family Provider Family Medicine; PCP Family Medicine; Visit Provider Specialist
DX: H90.71 Mixed conductive and sensorineural hearing loss, unilateral, right ear, with unrestricted hearing on the contralateral side (principal)
CPT/HCPCS: 70551

== ENCOUNTER → 2020-07-08 13:49 | Outpatient (BNVA) | payer MEDICAID, SELFPAY | PROVIDERS: Family Provider Family Medicine; PCP Family Medicine; Visit Provider Obstetrics & Gynecology | DX: O09.899 Supervision of other high risk pregnancies, unspecified trimester (principal); O99.89 Other specified diseases and conditions complicating pregnancy, childbirth and the puerperium; I34.1 Nonrheumatic mitral (valve) prolapse; Z67.91 Unspecified blood type, Rh negative; R82.71 Bacteriuria | CPT/HCPCS: 81000 ==

== ENCOUNTER → 2020-07-19 09:53 | Outpatient (BNVA) | payer MEDICAID, SELFPAY | PROVIDERS: Family Provider Family Medicine; PCP Family Medicine; Visit Provider Obstetrics & Gynecology | DX: O09.899 Supervision of other high risk pregnancies, unspecified trimester (principal); Z3A.00 Weeks of gestation of pregnancy not specified | CPT/HCPCS: 81000; 82950 ==

== ENCOUNTER 2020-08-02 08:48 | Outpatient (CLI) | payer MEDICAID, SELFPAY | END 2020-08-02 08:49 | disposition home or self-care (01) | LOC: LAB 05-16 15:43 | PROVIDERS: PCP Family Medicine; Visit Provider Obstetrics & Gynecology | DX: Z34.90 Encounter for supervision of normal pregnancy, unspecified, unspecified trimester (principal) | CPT/HCPCS: 81000 ==

== ENCOUNTER → 2020-08-16 10:02 | Outpatient (BNVA) | payer MEDICAID, SELFPAY | PROVIDERS: PCP Family Medicine; Visit Provider Obstetrics & Gynecology | DX: O09.899 Supervision of other high risk pregnancies, unspecified trimester; Z67.91 Unspecified blood type, Rh negative; Z3A.00 Weeks of gestation of pregnancy not specified | CPT/HCPCS: 81000; 85027; 86850 ==

== ENCOUNTER → 2020-08-27 11:01 | Outpatient (BNVA) | payer MEDICAID, SELFPAY | PROVIDERS: PCP Family Medicine; Visit Provider Obstetrics & Gynecology | DX: Z34.90 Encounter for supervision of normal pregnancy, unspecified, unspecified trimester (principal) | CPT/HCPCS: 81000 ==

== ENCOUNTER → 2020-09-10 11:08 | Outpatient (BNVA) | payer MEDICAID, SELFPAY | PROVIDERS: PCP Family Medicine; Visit Provider Obstetrics & Gynecology | DX: O09.899 Supervision of other high risk pregnancies, unspecified trimester (principal); Z67.91 Unspecified blood type, Rh negative; Z3A.00 Weeks of gestation of pregnancy not specified | CPT/HCPCS: 81000 ==

== ENCOUNTER → 2020-09-12 09:20 | Outpatient (BNVA) | payer MEDICAID, SELFPAY | PROVIDERS: PCP Family Medicine; Visit Provider Obstetrics & Gynecology | DX: D53.9 Nutritional anemia, unspecified (principal) | CPT/HCPCS: 76816; 82607; 82746; 83550; 84443; 85045 ==

== ENCOUNTER → 2020-09-23 07:59 | Outpatient (BNVA) | payer MEDICAID, SELFPAY | PROVIDERS: PCP Family Medicine; Visit Provider Obstetrics & Gynecology | DX: O09.899 Supervision of other high risk pregnancies, unspecified trimester (principal); Z3A.00 Weeks of gestation of pregnancy not specified | CPT/HCPCS: 81000 ==

== ENCOUNTER → 2020-10-10 13:15 | Outpatient (BNVA) | payer BC, MEDICAID, SELFPAY | PROVIDERS: PCP Family Medicine; Visit Provider Obstetrics & Gynecology | DX: O99.412 Diseases of the circulatory system complicating pregnancy, second trimester (principal); I34.1 Nonrheumatic mitral (valve) prolapse; O99.013 Anemia complicating pregnancy, third trimester; D64.9 Anemia, unspecified; Z67.91 Unspecified blood type, Rh negative; O99.321 Drug use complicating pregnancy, first trimester; F19.20 Other psychoactive substance dependence, uncomplicated; R00.2 Palpitations; O21.1 Hyperemesis gravidarum with metabolic disturbance; Z3A.00 Weeks of gestation of pregnancy not specified | CPT/HCPCS: 81000; 87081 ==

== ENCOUNTER → 2020-12-12 12:55 | Outpatient (BNVA) | payer BC, MEDICAID, SELFPAY | PROVIDERS: PCP Family Medicine; Visit Provider Obstetrics & Gynecology | DX: R85.610 Atypical squamous cells of undetermined significance on cytologic smear of anus (ASC-US) (principal); N73.9 Female pelvic inflammatory disease, unspecified | CPT/HCPCS: 81025 ==

== ENCOUNTER → 2020-12-26 12:42 | Outpatient (BNVA) | payer BC, MEDICAID, SELFPAY | PROVIDERS: PCP Family Medicine; Visit Provider Obstetrics & Gynecology | DX: R87.620 Atypical squamous cells of undetermined significance on cytologic smear of vagina (ASC-US); Z30.9 Encounter for contraceptive management, unspecified; Z30.09 Encounter for other general counseling and advice on contraception; Z41.9 Encounter for procedure for purposes other than remedying health state, unspecified | CPT/HCPCS: 81025; 88305 ==

== ENCOUNTER → 2021-02-21 11:10 | Outpatient (BNVA) | payer BC, MEDICAID, SELFPAY | PROVIDERS: PCP Family Medicine; Visit Provider Obstetrics & Gynecology | DX: Z11.3 Encounter for screening for infections with a predominantly sexual mode of transmission (principal); N93.9 Abnormal uterine and vaginal bleeding, unspecified | CPT/HCPCS: 87491; 87591 ==

== ENCOUNTER → 2021-03-06 11:07 | Outpatient (BNVA) | payer BC, MEDICAID, SELFPAY | PROVIDERS: PCP Family Medicine; Visit Provider Obstetrics & Gynecology | DX: N93.9 Abnormal uterine and vaginal bleeding, unspecified (principal) | CPT/HCPCS: 76830 ==

== ENCOUNTER 2021-03-12 14:51 | Outpatient (CLI) | payer BC, MEDICAID, SELFPAY ==
[2021-03-12 15:42] LABS: Thyroid Stimulating Hormone 0.33 uIU/mL (0.27-4.20)
== END 2021-03-12 14:52 | disposition home or self-care (01) ==
PROVIDERS: Obstetrics & Gynecology; PCP Family Medicine; Visit Provider Pharmacist
DX: N93.9 Abnormal uterine and vaginal bleeding, unspecified (principal)
CPT/HCPCS: 36415; 84443

== ENCOUNTER → 2021-06-03 09:26 | Outpatient (BNVA) | payer BC, MEDICAID, SELFPAY | PROVIDERS: PCP Family Medicine; Visit Provider Nurse Practitioner Women's Health | DX: N89.8 Other specified noninflammatory disorders of vagina (principal); R10.2 Pelvic and perineal pain | CPT/HCPCS: 87070; 87205; 87491; 87591; 87661 ==

== ENCOUNTER → 2021-07-03 09:16 | Outpatient (BNVA) | payer BC, MEDICAID, SELFPAY | PROVIDERS: PCP Family Medicine; Visit Provider Nurse Practitioner Women's Health | DX: R10.2 Pelvic and perineal pain (principal); R93.89 Abnormal findings on diagnostic imaging of other specified body structures | CPT/HCPCS: 76830 ==

== ENCOUNTER → 2021-08-11 07:56 | Outpatient (BNVA) | payer BC, MEDICAID, SELFPAY | PROVIDERS: PCP Family Medicine; Visit Provider Counselor Mental Health | DX: F33.9 Major depressive disorder, recurrent, unspecified (principal); F43.12 Post-traumatic stress disorder, chronic | CPT/HCPCS: 90837; 90834 ==

== ENCOUNTER → 2021-08-18 08:57 | Outpatient (BNVA) | payer BC, MEDICAID, SELFPAY | PROVIDERS: PCP Family Medicine; Visit Provider Counselor Mental Health | DX: F33.9 Major depressive disorder, recurrent, unspecified (principal); F43.12 Post-traumatic stress disorder, chronic | CPT/HCPCS: 90834 ==

== ENCOUNTER → 2021-09-01 08:58 | Outpatient (BNVA) | payer BC, MEDICAID, SELFPAY | PROVIDERS: PCP Family Medicine; Visit Provider Counselor Mental Health | DX: F33.9 Major depressive disorder, recurrent, unspecified (principal); F43.12 Post-traumatic stress disorder, chronic | CPT/HCPCS: 90834 ==

== ENCOUNTER → 2021-09-08 08:56 | Outpatient (BNVA) | payer BC, MEDICAID, SELFPAY | PROVIDERS: PCP Family Medicine; Visit Provider Counselor Mental Health | DX: F33.9 Major depressive disorder, recurrent, unspecified (principal); F43.12 Post-traumatic stress disorder, chronic | CPT/HCPCS: 90834 ==

== ENCOUNTER → 2021-09-15 08:58 | Outpatient (BNVA) | payer BC, MEDICAID, SELFPAY | PROVIDERS: PCP Family Medicine; Visit Provider Counselor Mental Health | DX: F33.9 Major depressive disorder, recurrent, unspecified (principal); F43.12 Post-traumatic stress disorder, chronic | CPT/HCPCS: 90834 ==

== ENCOUNTER → 2021-09-29 09:00 | Outpatient (BNVA) | payer BC, SELFPAY | PROVIDERS: PCP Family Medicine; Visit Provider Counselor Mental Health | DX: F33.9 Major depressive disorder, recurrent, unspecified (principal); F43.12 Post-traumatic stress disorder, chronic | CPT/HCPCS: 90837; 87635; 90834 ==

== ENCOUNTER → 2021-10-06 09:01 | Outpatient (BNVA) | payer BC, SELFPAY | PROVIDERS: PCP Family Medicine; Visit Provider Counselor Mental Health | DX: F33.9 Major depressive disorder, recurrent, unspecified (principal); F43.12 Post-traumatic stress disorder, chronic | CPT/HCPCS: 90837; 90834 ==

== ENCOUNTER → 2021-10-13 09:00 | Outpatient (BNVA) | payer BC, SELFPAY | PROVIDERS: PCP Family Medicine; Visit Provider Counselor Mental Health | DX: F33.9 Major depressive disorder, recurrent, unspecified (principal); F43.12 Post-traumatic stress disorder, chronic | CPT/HCPCS: 90837; 90834 ==

== ENCOUNTER → 2021-10-20 09:00 | Outpatient (BNVA) | payer BC, SELFPAY | PROVIDERS: PCP Family Medicine; Visit Provider Counselor Mental Health | DX: F33.9 Major depressive disorder, recurrent, unspecified (principal); F43.12 Post-traumatic stress disorder, chronic | CPT/HCPCS: 90837; 90834 ==

== ENCOUNTER → 2021-10-30 10:00 | Outpatient (BNVA) | payer BC, SELFPAY | PROVIDERS: PCP Family Medicine; Visit Provider Counselor Mental Health | DX: F41.0 Panic disorder [episodic paroxysmal anxiety] (principal); F32.A Depression, unspecified | CPT/HCPCS: 90837; 90834 ==

== ENCOUNTER → 2021-10-31 13:46 | Outpatient (BNVA) | payer BC, SELFPAY | PROVIDERS: PCP Family Medicine; Visit Provider Obstetrics & Gynecology | DX: O09.91 Supervision of high risk pregnancy, unspecified, first trimester (principal); N92.6 Irregular menstruation, unspecified | CPT/HCPCS: 80307; 81025; 84315; 85027; 86592; 86762; 86803; 86850; 86900; 87086; 87340; 87491; 87591; 87661; 87806 ==

== ENCOUNTER → 2021-11-03 09:03 | Outpatient (BNVA) | payer BC, SELFPAY | PROVIDERS: PCP Family Medicine; Visit Provider Counselor Mental Health | DX: F41.9 Anxiety disorder, unspecified (principal); F32.A Depression, unspecified | CPT/HCPCS: 90834 ==

== ENCOUNTER → 2021-11-13 09:01 | Outpatient (BNVA) | payer BC, SELFPAY | PROVIDERS: PCP Family Medicine; Visit Provider Counselor Mental Health | DX: F41.9 Anxiety disorder, unspecified (principal); F32.A Depression, unspecified | CPT/HCPCS: 90837; 90834 ==

== ENCOUNTER → 2021-11-14 09:44 | Outpatient (BNVA) | payer BC, SELFPAY | PROVIDERS: PCP Family Medicine; Visit Provider Nurse Practitioner Women's Health | DX: N92.6 Irregular menstruation, unspecified (principal) | CPT/HCPCS: 81025 ==

== ENCOUNTER → 2021-11-24 09:05 | Outpatient (BNVA) | payer BC, SELFPAY | PROVIDERS: PCP Family Medicine; Visit Provider Counselor Mental Health | DX: F41.9 Anxiety disorder, unspecified (principal); F32.A Depression, unspecified | CPT/HCPCS: 90834 ==

== ENCOUNTER 2021-11-25 13:03 | Emergency (ER) | payer BC, MEDICAID, SELFPAY ==
[2021-11-25 13:09] VITALS: BP 117/48; PULSE 89; RESP 16; TEMP 36.7; O2SAT 99; BMI 19.5
[2021-11-25 13:19] VITALS: BP 105/68; PULSE 75; RESP 14; O2SAT 98
--- NOTE | 2021-11-25 13:20 | US_ITS ---
WS: [id number] EARLY OBSTETRICAL ULTRASOUND (<14 WEEKS). HISTORY: cramping following fall/injury; 9 wks COMPARISON: None available. Single intrauterine gestational sac is identified. Cardiac activity at 171 BPM. [place]-rump length brett sures 1.7 cm which corresponds to a gestation of 8w1d. Normal-appearing yolk sac and amnion demonstra jaden. No subchorionic hemorrhage. No free fluid. RIGHT ovary is identified and mildly heterogeneous contains a corpus luteum of . Normal vasc ularity. Normal LEFT ovary and normal vascularity. No free fluid. US/US OB <= 14 weeks fetus [id number] IMPRESSION: 1. Single intrauterine gestation of 8 weeks 1 day with an EDC of 07/06/2022. 2. Normal cardiac activity.
--- NOTE | 2021-11-25 13:21 | W.ED.PREGNAN ---
Documented by User: KENTON Pressley 11/25/21 14:04 HPI - General: Chief complaint: Abdominal Pain Stated complaint: Fall Cramping 9 weeks preg Time Seen by Provider: 11/25/21 13:05 Source: patient Mode of arrival: ambulatory Limitations: no limitations History of Present Illness: Patient is a 31-year-old female presents to ED today for evaluation of pelvic cramping following a fall yesterday evening. Patient states she was doing laundry in her basement and was walking up a flight of stairs when she slipped and fell forward. Patient states she struck her lower abdominal/pelvis on the stairs. She states shortly after she began having some pelvic cramping. She is concerned as she is 9 weeks . She is followed by OB. Patient is not having any vaginal bleeding, vaginal discharge, leaking of fluids. She has not complained of lightheadedness or dizziness. He has no other complaints related to the fall. MD Complaint: abdominal pain and other (pelvic pain/cramping) Onset (ago): hour(s) Location: pelvis Severity: mild Quality: Cramping Relieving factors: none Exacerbating factors: none Vaginal discharge: none Vaginal bleeding: none Patient : Yes care: followed by OB Associated symptoms: Reports abdominal pain (cramping); Deny dysuria, headache(s), nausea, vaginal discharge or vomiting Review of Systems Eyes: Denies: change in vision Card: Denies: chest pain Resp: Denies: dyspnea GI: Reports: abdominal pain (cramping); Denies: nausea, vomiting or diarrhea : Reports: pelvic pain (cramping); Denies: flank pain, difficulty voiding, dysuria, urinary frequency, urinary urgency, hematuria, genital lesions, vaginal odor, vaginal bleeding, vaginal discharge or metrorrhagia Musc: Denies: neck pain, back pain, extremity pain or joint pain Neuro: Denies: headache(s) or dizziness PFSH ED PFSH: Medical History Anxiety and depression Gastroparesis Reports is idiopathic. Has been self treating associated nausea with marijuana. IBS (irritable bowel syndrome) more diarrhea Memory loss due to medical condition Mitral valve prolapse No pertinent past medical history neghx:htn,dm,thyroid,dvt/pe PCP: [facility] Palpitations Due to mitral valve prolapse. On carvedilol Psychiatric care Surgical History H/O laparoscopy (~2017) Albino-- for pelvic pain; no endometriosis, just IBS related H/O lumpectomy Left breast lumpectomy - benign per patient at age 15. History of tonsillectomy (~1996) Family History Mother Hypertension Hyperlipidemia Grandmother Stroke Paternal grandmother Breast cancer Paternal great grandmother Sister Thyroid disease Denies family history of Colon cancer Ovarian cancer Diabetes Heart disease Hypercholesteremia Uterine cancer Social History Smoking and tobacco status: never smoked Other details last substance use: marijuana use 02/2021 Physical Exam Const: COMMON NORMALS: no acute distress, average body habitus, patient oriented x3, no limitations, healthy appearing, alert and well nourished GENERAL APPEARANCE: cooperative Neck/C-Spine: CERVICAL SPINE: Yes cervical ROM normal, No pain with cervical ROM and No Cervical spine tenderness Chest: COMMONS NORMALS: normal inspection of the chest and normal palpation of entire chest wall Resp: COMMON NORMALS: normal respiratory effort and clear to auscultation bilaterally AUSCULTATION: clear to auscultation bilaterally Cardio: COMMON NORMALS: regular rate and regular rhythm RATE: regular rate RHYTHM: regular rhythm GI: COMMON NORMALS: Normal to inspection, nondistended, normoactive bowel sounds present, Soft to palpation, No hepatosplenomegaly present and no masses INSPECTION: Yes normal to inspection PALPATION: Yes Soft to palpation, Yes Tenderness to palpation present (GI) (mild lower abdomen/pelvic tenderness-non surgical exam), No Guarding due to palpation present (GI), No Rigid due to palpation and Yes No hepatosplenomegaly present Back/Pelvis: COMMON NORMALS: thoracic and lumbar spine normal to inspection, no thoracic nor lumbar tenderness and thoraco-lumbar ROM normal Extremity: COMMON NORMALS: normal to inspection GENERAL: Yes normal exam except as noted Neuro: COMMON NORMALS: patient oriented x3, moves all extremities, no focal motor deficits, no sensory deficits noted and gait normal SENSORIUM/ORIENTATION: Yes alert Skin: COMMON NORMALS: no rashes or lesions noted GENERAL SKIN EXAM: no rashes or lesions noted TRAUMA: no lacerations or abrasions Course Vital Signs: Vital signs: Vital Signs Temperature 98.1 F 11/25/21 13:09 Pulse Rate 92 11/25/21 14:07 Respiratory Rate 16 11/25/21 14:07 Blood Pressure 111/67 11/25/21 14:07 Pulse Oximetry 99 11/25/21 14:07 MDM - OB/Uterine Contractions Medical Decision Making US normal. She has no vaginal bleeding. I don't labs or further imaging is necessary based on her history and physical exam. Return to ED precautions verbally given to patient. Lab Data Radiology Impressions Ultrasound 11/25/21 13:20 IMPRESSION: 1. Single intrauterine gestation of 8 weeks 1 day with an EDC of 07/06/2022. 2. Normal cardiac activity. Discharge Plan Discharge Patient Disposition: Home Clinical Impression: Pelvic cramping Condition: Stable Prescriptions: No Action aluminum chloride [Drysol] 20 % solution 1 applic topical ONCE Qty: 60 0RF carvedilol 3.125 mg tablet 3.125 mg PO BID 0RF Rx Instructions: must administer with a meal/food lidocaine-epinephrine 2 %-1:100,000 solution 1 ml Infiltration ONCE Qty: 1 0RF multivitamin Tablet 1 tab PO DAILY 0RF Saccharomyces boulardii [Daily Probiotic (S. boulardii)] PO [id number] Label Comments: on hold ferrous sulfate 325 mg (65 mg iron) tablet 325 mg PO DAILY 0RF mupirocin 2 % ointment 1 applic topical BID Qty: 15 0RF Discharge Orders: Discharge ED (Routine); Ordered 11/25/21 Ordered By: Cora Grant Referrals: Carly Alvarez DO [Primary Care Provider] - Coding Level of Care Code ED Financial Operations Consultant for Chg Fwd Exam Comprehensive Documented by User: Gideon Gaspar MD 11/27/21 01:54 HPI - General: Chief complaint: Abdominal Pain Stated complaint: Fall Cramping 9 weeks preg Time Seen by Provider: 11/25/21 13:05 PFSH ED PFSH: Medical History Anxiety and depression Gastroparesis Reports is idiopathic. Has been self treating associated nausea with marijuana. IBS (irritable bowel syndrome) more diarrhea Memory loss due to medical condition Mitral valve prolapse No pertinent past medical history neghx:htn,dm,thyroid,dvt/pe PCP: [facility] Palpitations Due to mitral valve prolapse. On carvedilol Psychiatric care Surgical History H/O laparoscopy (~2017) Albino-- for pelvic pain; no endometriosis, just IBS related H/O lumpectomy Left breast lumpectomy - benign per patient at age 15. History of tonsillectomy (~1996) Family History Mother Hypertension Hyperlipidemia Grandmother Stroke Paternal grandmother Breast cancer Paternal great grandmother Sister Thyroid disease Denies family history of Colon cancer Ovarian cancer Diabetes Heart disease Hypercholesteremia Uterine cancer Social History Smoking and tobacco status: never smoked Other details last substance use: marijuana use 02/2021 Course Vital Signs: Vital signs: Vital Signs Temperature 98.1 F 11/25/21 13:09 Pulse Rate 92 11/25/21 14:07 Respiratory Rate 16 11/25/21 14:07 Blood Pressure 111/67 11/25/21 14:07 Pulse Oximetry 99 11/25/21 14:07 MDM - OB/Uterine Contractions Medical Decision Making US normal. She has no vaginal bleeding. I don't labs or further imaging is necessary based on her history and physical exam. Return to ED precautions verbally given to patient. I have reviewed this documentation by KENTON Pressley. Gideon Gaspar MD Emergency Medicine Lab Data Radiology Impressions Ultrasound 11/25/21 13:20
[2021-11-25 14:07] VITALS: BP 111/67; PULSE 92; RESP 16; O2SAT 99
== END 2021-11-25 14:08 | disposition home or self-care (01) ==
PROVIDERS: Emergency Provider Physician Assistant; PCP Family Medicine
DX: O26.891 Other specified pregnancy related conditions, first trimester (principal); R10.2 Pelvic and perineal pain; Z3A.08 8 weeks gestation of pregnancy
CPT/HCPCS: 76801; 99283

== ENCOUNTER → 2021-12-05 09:03 | Outpatient (BNVA) | payer BC, MEDICAID, SELFPAY | PROVIDERS: PCP Family Medicine; Visit Provider Counselor Mental Health | DX: F41.9 Anxiety disorder, unspecified (principal); F32.A Depression, unspecified | CPT/HCPCS: 90834 ==

== ENCOUNTER 2021-12-06 16:30 | Emergency (ER) | payer BC, MEDICAID, SELFPAY ==
[2021-12-06 16:49] VITALS: BP 99/59; PULSE 106; RESP 18; TEMP 36.9; O2SAT 100; BMI 19.6
--- NOTE | 2021-12-06 17:25 | W.ED.GENADLT ---
HPI - General Adult General: Chief complaint: General Medical Stated complaint: [place] for a few days, Weakness, Sleeping alot Time Seen by Provider: 12/06/21 17:24 History of Present Illness: Ms. Stewart is a 31-year-old lady currently with history of gastroparesis and IBS as well as psychiatric disorder who presents emergency department with 2 separate concerns. She reports approximately 2 to 3-week history of right-sided mouth and neck pain, she had teeth removed believing that this was a source of infection and she has poor dentition and initially was improved however now is right lateral neck pain. She denies difficulty swallowing, sore throat, or any respiratory compromise. She has had fevers intermittently with T-max 101. She does have tenderness to palpation and subjectively feels that there is some swelling. Additionally approximately 3 days ago she developed dysuria and lower abdominal pain. She also has noticed a bulge from her vagina that she has never had before. Intensity of symptoms is moderate. Course has persisted. No other specific exacerbating, alleviating, or provoking factors identified. Onset (ago): week(s) Severity: moderate Pain Consistency: constant Review of Systems General: Reports: 10 or more systems reviewed and unremarkable except in HPI and below PFSH ED PFSH: Medical History Anxiety and depression Gastroparesis Reports is idiopathic. Has been self treating associated nausea with marijuana. Gonorrhea contact, treated IBS (irritable bowel syndrome) more diarrhea Memory loss due to medical condition Mitral valve prolapse No pertinent past medical history neghx:htn,dm,thyroid,dvt/pe PCP: Antonio Palpitations Due to mitral valve prolapse. On carvedilol Psychiatric care Surgical History H/O laparoscopy (~2017) Albino-- for pelvic pain; no endometriosis, just IBS related H/O lumpectomy Left breast lumpectomy - benign per patient at age 15. History of tonsillectomy (~1996) Family History Mother Hypertension Hyperlipidemia Grandmother Stroke Paternal grandmother Breast cancer Paternal great grandmother Sister Thyroid disease Other Anxiety and depression Denies family history of Colon cancer Ovarian cancer Diabetes Heart disease Hypercholesteremia Uterine cancer Social History Smoking and tobacco status: former smoker Physical Exam Const: COMMON NORMALS: alert GENERAL APPEARANCE: cooperative and well developed HENMT: COMMON NORMALS: normocephalic and atraumatic HEAD & SCALP: normocephalic and atraumatic THROAT: posterior oropharynx normal OTHER: Poor dentition Eye: COMMON NORMALS: conjunctivae normal CONJUNCTIVA: Yes conjunctivae normal SCLERA: sclerae normal Neck/C-Spine: COMMON NORMALS: full ROM, supple and no meningeal signs GENERAL: Yes trachea midline OTHER: Patient reports subjective fullness on the right side of her neck however upon palpation and inspection this appears similar Resp: COMMON NORMALS: normal respiratory effort EFFORT & INSPECTION: Yes able to speak in complete sentences Cardio: COMMON NORMALS: regular rate and regular rhythm RATE: regular rate RHYTHM: regular rhythm GI: COMMON NORMALS: Soft to palpation PALPATION: Yes Soft to palpation and No Tenderness to palpation present (GI) : OTHER: Exam performed with marker machine present. There is no lesions or rash or trauma appreciated on external genital exam. There is no obvious proximal 2.5 cm in diameter mass near the introitus. There is tenderness palpation without evidence of discoloration. This does impede and presents for speculum exam. On inspection the patient appears midline. Extremity: GENERAL: Yes normal exam except as noted and No edema Neuro: COMMON NORMALS: moves all extremities SENSORIUM/ORIENTATION: Yes alert and No Orientation impaired MENINGEAL SIGNS: Yes no meningeal signs Psych: COMMON NORMALS: mental status grossly normal and Normal thought process present THOUGHT PROCESS: Normal thought process present Course ED course: - Patient was seen and evaluated by me at bedside - Patient placed on cardiac monitors, IV access obtained - Initial evaluation notable for exam as above - Fluids and antiemetic given - Labs notable for leukocytosis, normocytic anemia. Metabolic panel with perhaps mild evidence of dehydration. Urinalysis not concerning for urinary tract infection. - I discussed the patient's physical exam findings with Dr. Winters [employer] REFINING [employer]ER on-call. She recommended exam the patient, appreciate consultation performed by her - She performed incision and drainage on right skeenes gland Abscess, ordered at her request for patient comfort during procedure. - Upon serial reexamination after treatment the patient was improved - Based on patient history, evaluation, labs, and imaging as interpreted the most likely cause of the patient's condition is Skeene's gland abscess. Regarding the patient's neck symptoms I do not see any evidence of obvious pathology, if there were perhaps residual infection and procedure the antibiotics recommended by [employer]ER for patient's condition aid in this. Given physical exam findings I do not feel that advanced imaging is required. - The results of ED evaluation were discussed with the patient including prescriptions and/or symptomatic cares (if applicable) including appropriate and responsible use, followup plan, and return precautions. Initially Dr. Winters had given a prescription for hydrocodone-acetaminophen however the patient reports that she has had intolerance to this in the past. She thinks she required oxycodone prophylactically sinus rhythm. I discussed risks and benefits given previous reactions to oxycodone, I do believe that it is reasonable to provide the patient with analgesia given her procedure. I discussed risks and benefits and extreme caution with use. The patient verbalized understanding and felt safe for discharge. - Patient discharged in satisfactory condition. Note: Click bubbles or prepopulated jones in note writing are used for assistance with data collection and billing and are inherently more limited than narrative and other text portions of this note. Please use narrative for additional clinical history and defer to narrative/free test for any case of contradictory information. If information appears in only free text or click bubble it should be considered present or absent as reported. Please contact note writer producer for clarifications of clinical information or contradictory information. MDM is a brief summary, contradictory or erroneous seeming information should be clarified and full note should be reviewed. Vital Signs: Vital signs: Vital Signs Temperature 98 F 12/06/21 21:29 Pulse Rate 82 12/06/21 21:26 Respiratory Rate 16 12/06/21 21:26 Blood Pressure 108/65 12/06/21 21:29 Pulse Oximetry 98 12/06/21 21:29 MDM - General Adult Medical Decision Making 31-year-old lady currently presenting with multiple concerns including vaginal mass and neck pain. Patient found to have Perham's gland abscess which was drained by [employer]ING [employer]ER. Patient to be discharged with close followup with analgesia and antibiotics. Medical Records I reviewed the patient's medical records. Lab Data I reviewed the patient's lab results. : 12/06/21 17:54 12/06/21 17:54 Laboratory Results WBC 17.8 10^3/uL (4.0-10.0) H 12/06/21 17:54 RBC 3.51 10^6/uL (4.1-5.3) L 12/06/21 17:54 Hgb 11.4 g/dL (11.5-15.3) L 12/06/21 17:54 Hct 33.9 % (37.0-47.0) L 12/06/21 17:54 MCV 96.6 fl (81-99) 12/06/21 17:54 MCH 32.5 pg (28.0-34.0) 12/06/21 17:54 MCHC 33.6 g/dL (30.0-36.0) 12/06/21 17:54 RDW 12.5 % (12.1-15.1) 12/06/21 17:54 Plt Count 276 10^3/cmm (130-400) 12/06/21 17:54 MPV 9.4 fL (7.4-10.4) 12/06/21 17:54 Neut % (Auto) 72.5 % 12/06/21 17:54 Lymph % (Auto) 18.8 % 12/06/21 17:54 [place] % (Auto) 6.3 % 12/06/21 17:54 Eos % (Auto) 1.2 % 12/06/21 17:54 Baso % (Auto) 0.6 % 12/06/21 17:54 Neut # (Auto) 12.92 10^3/uL (1.8-7.7) H 12/06/21 17:54 Lymph # (Auto) 3.3 10^3/uL (0.8-4.8) 12/06/21 17:54 [place] # (Auto) 1.1 10^3/uL (0.2-0.9) H 12/06/21 17:54 Eos # (Auto) 0.2 10^3/uL (0.0-0.8) 12/06/21 17:54 Baso # (Auto) 0.1 10^3/uL (0.0-0.1) 12/06/21 17:54 Nucleated RBC % (auto) 0 % 12/06/21 17:54 Nucleated RBCs # 0.0 /100WBC 12/06/21 17:54 Sodium 137 mmol/L (136-145) 12/06/21 17:54 Potassium 3.6 mmol/L (3.5-5.1) 12/06/21 17:54 Chloride 105 mmol/L (98-107) 12/06/21 17:54 Carbon Dioxide 20 mmol/L (22-29) L 12/06/21 17:54 Anion Gap 15.6 (5-19) 12/06/21 17:54 BUN 7 mg/dL (6-20) 12/06/21 17:54 Creatinine 0.5 mg/dL (0.5-0.9) 12/06/21 17:54 GFR Calculation 142.1 mL/min (90-130) H 12/06/21 17:54 Glucose 89 mg/dL (65-115) 12/06/21 17:54 Calculated Osmolality 281 mOsm/kg (285-295) L 12/06/21 17:54 Calcium 9.4 mg/dL (8.5-10.5) 12/06/21 17:54 Total Bilirubin 0.2 mg/dL (0.15-1.2) 12/06/21 17:54 AST 16 U/L (0-32) 12/06/21 17:54 ALT 16 U/L (0-33) 12/06/21 17:54 Alkaline Phosphatase 57 IU/L (35-105) 12/06/21 17:54 Total Protein 7.7 g/dL (6.6-8.7) 12/06/21 17:54 Albumin 4.6 g/dL (3.5-5.2) 12/06/21 17:54 Globulin 3.1 g/dL (1.3-4.6) 12/06/21 17:54 HCG, Qual Positive (Negative) H 12/06/21 17:54 Ser , Semi-Qnt 521665.00 mIU/mL 12/06/21 17:54 Urine Color Straw (Yellow) 12/06/21 17:49 Urine Appearance Clear (CLEAR) 12/06/21 17:49 Urine pH 6.5 (5-7) 12/06/21 17:49 Ur Specific [place] 1.005 (1.005-1.030) 12/06/21 17:49 Urine Protein Neg (Negative) 12/06/21 17:49 Urine Glucose (UA) Norm (Normal) 12/06/21 17:49 Urine Ketones Negative (Negative) 12/06/21 17:49 Urine Blood Neg (Negative) 12/06/21 17:49 Urine Nitrate Negative (Negative) 12/06/21 17:49 Urine Bilirubin Neg (Negative) 12/06/21 17:49 Urine Urobilinogen Norm mg/dL (Negative) 12/06/21 17:49 Ur Leukocyte Esterase Negative (Negative) 12/06/21 17:49 Discharge Plan Discharge Patient Disposition: Home Clinical Impression: Neck pain, , Abscess, Perham's gland, Dental caries Condition: Stable Prescriptions: No Action amoxicillin 500 mg capsule 500 mg PO Q12H 7 Days Qty: 14 0RF 28 mg iron- 800 mcg Tablet 1 tab PO BEDTIME 0RF Discharge Orders: Discharge ED (Routine); Ordered 12/06/21 Ordered By: Gideon Gaspar Referrals: Carly Alvarez DO [Primary Care Provider] - Discharge Diet: Advance as tolerated Discharge Activity: Limit activity as instructed Patient Instructions: Abscess (ED), Opioid Safety Activity Restrictions/Additional Instructions: Thank you for visiting the emergency department. You were seen and evaluated for fever, concerning for neck pain, and urinary symptoms with vaginal mass. The exact cause of the symptoms is likely multifactorial. You were found to have a likely abscess of a Perham's gland which was treated by Dr. Winters. A prescription for pain control and also antibiotic was sent to your pharmacy. Please start taking these in the morning. Please follow all instructions given by Dr. Winters and follow-up early next week as directed. As discussed, watch for any signs of allergic reaction and go to the closest emergency department if you do develop allergic reaction to medications. The antibiotics will also help with any residual infection from your dental procedure if present. Please return to the emergency department for uncontrolled symptoms, any difficulty breathing or swallowing, or anything else that you are concerned about and feel needs emergency department evaluation. Stand Alone Forms: Work/School Release Coding Level of Care Code ED Color Control Supervisor for Agustin Vega
[2021-12-06 18:06] LABS: Basophils # 0.1 10^3/uL (0.0-0.1); Basophils % 0.6 %; Eosinophils # 0.2 10^3/uL (0.0-0.8); Eosinophils % 1.2 %; Hematocrit 33.9 % (37.0-47.0); Hemoglobin 11.4 g/dL (11.5-15.3); Lymphocytes # 3.3 10^3/uL (0.8-4.8); Lymphocytes % 18.8 %; Mean Corpuscular HGB Conc 33.6 g/dL (30.0-36.0); Mean Corpuscular Hemoglobin 32.5 pg (28.0-34.0); Mean Corpuscular Volume 96.6 fl (81-99); Mean Platelet Volume 9.4 fL (7.4-10.4); Monocytes # 1.1 10^3/uL (0.2-0.9); Monocytes % 6.3 %; Neutrophils # 12.92 10^3/uL (1.8-7.7); Neutrophils % 72.5 %; Nucleated Red Blood Cells % 0 %; Platelet Count 276 10^3/cmm (130-400); Red Blood Count 3.51 10^6/uL (4.1-5.3); Red Cell Distribution Width 12.5 % (12.1-15.1); White Blood Count 17.8 10^3/uL (4.0-10.0)
[2021-12-06] MEDS: lactated ringers 1,000 ML 999 ML IV (18:09)
[2021-12-06 18:25] LABS: HCG, Serum Qual Positive (Negative)
[2021-12-06 18:30] LABS: Add Urine Microscopic? NO; Charge for UA Resulting for Rev
[2021-12-06 18:35] LABS: Alanine Aminotransferase 16 U/L (0-33); Albumin Level 4.6 g/dL (3.5-5.2); Alkaline Phosphatase 57 IU/L (35-105); Anion Gap 15.6 (5-19); Aspartate Amino Transferase 16 U/L (0-32); Blood Urea Nitrogen 7 mg/dL (6-20); Calcium 9.4 mg/dL (8.5-10.5); Carbon Dioxide 20 mmol/L (22-29); Chloride 105 mmol/L (98-107); Globulin 3.1 g/dL (1.3-4.6); Glomerular Filtration Rate 142.1 mL/min (90-130); Glucose 89 mg/dL (65-115); Osmolality Calculated 281 mOsm/kg (285-295); Potassium 3.6 mmol/L (3.5-5.1); Sodium 137 mmol/L (136-145); Total Bilirubin 0.2 mg/dL (0.15-1.2); Total Protein 7.7 g/dL (6.6-8.7)
[2021-12-06 18:56] LABS: Bilirubin Urine Neg (Negative); Blood Urine Neg (Negative); Glucose Urine UA Norm (Normal); Ketones Urine Negative (Negative); Leukocyte Esterase Urine Negative (Negative); Nitrate Urine Negative (Negative); Protein Urine Neg (Negative); Specific Gravity, Urine 1.005 (1.005-1.030); Urine Appearance Clear (CLEAR); Urine Color Straw (Yellow); Urobilinogen Urine Norm (Negative); pH Urine 6.5 (5-7)
[2021-12-06 19:39] VITALS: BP 93/52; PULSE 86; RESP 16; O2SAT 99
[2021-12-06] MEDS: lidocaine 2% Urojet 20 mL TOPICAL (20:13)
[2021-12-06] MEDS: fentaNYL 50 mcg/mL INJ 2mL IVP (20:14)
--- NOTE | 2021-12-06 20:24 | P.CONIM_ITS ---
Providers/Reason For Consult Consulting Physician/Specialty*: Dr. Winters [employer]ING [employer]RIER Reason for Consult*: vaginal cyst Requesting Physician: Dr. Gaspar Primary Care Provider: Carly Alvarez DO History of Present Illness History of Present Illness Hayden Stewart is a 31 year old female who is about 10 weeks who presented to the ER for a 2 day history of vaginal pain. She noticed a mass today and is concerned. She has a history of gonorrhea and trich. She was treated, but found out recently that her partner was treated for gonorrhea, but NOT the trichomonas. She is in a tremendous amount of pain. Review of Systems General: Reports: 10 or more systems reviewed and unremarkable except in HPI and below Medications/Allergies Home Medications Medication Instructions Recorded Confirmed Last Taken Type ferrous sulfate 325 mg (65 mg 325 mg PO DAILY 11/14/21 12/06/21 12/06/21 History iron) tablet vit no.95-ferrous 1 tab PO BEDTIME 12/06/21 12/06/21 12/05/21 History fumarate 28 mg-folic acid 800 mcg tablet () Allergies Allergy/AdvReac Type Severity Reaction Status Date / Time hydrocodone Allergy rash, hives Verified 12/06/21 17:30 latex Allergy rash, hives Verified 12/06/21 17:30 nitrofurantoin Allergy rash, hives Verified 12/06/21 17:30 [From Macrobid] promethazine [From Phenergan] Allergy sal[place] my Verified 12/06/21 17:30 body tramadol Allergy rash, hives Verified 12/06/21 17:30 PFSH Acute PFSH: Medical History (Updated 12/06/21 @ 20:32 by Mary Winters MD) Anxiety and depression Gastroparesis Reports is idiopathic. Has been self treating associated nausea with marijuana. Gonorrhea contact, treated IBS (irritable bowel syndrome) more diarrhea Memory loss due to medical condition Mitral valve prolapse No pertinent past medical history neghx:htn,dm,thyroid,dvt/pe PCP: Antonio Palpitations Due to mitral valve prolapse. On carvedilol Psychiatric care Surgical History H/O laparoscopy (~2018) Albino-- for pelvic pain; no endometriosis, just IBS related H/O lumpectomy Left breast lumpectomy - benign per patient at age 15. History of tonsillectomy (~1996) Family History Mother Hypertension Hyperlipidemia Grandmother Stroke Paternal grandmother Breast cancer Paternal great grandmother Sister Thyroid disease Other Anxiety and depression Denies family history of Colon cancer Ovarian cancer Diabetes Heart disease Hypercholesteremia Uterine cancer Social History Smoking and tobacco status: never smoked Other details last substance use: marijuana use 02/2021 Vitals/I&O/Wt Last Vital Signs Temp 98.4 F 12/06/21 16:49 Pulse 86 12/06/21 19:39 Resp 16 12/06/21 19:39 BP 93/52 12/06/21 19:39 Pulse Ox 99 12/06/21 19:39 Weight last 48 hrs Weight 111 lb Physical Exam Const: COMMON NORMALS: average body habitus, patient oriented x3, no limitations, healthy appearing, alert and well nourished GENERAL APPEARANCE: cooperative, comfortable, well kempt and well developed ORIENTATION/CONSCIOUSNESS: Yes awake, Yes oriented to person, Yes oriented to place and Yes oriented to time Resp: COMMON NORMALS: normal respiratory effort EFFORT & INSPECTION: Yes able to speak in complete sentences : EXTERNAL FEMALE EXAM: Yes lesion (right skenes gland abscess present.) Neuro: COMMON NORMALS: patient oriented x3 SENSORIUM/ORIENTATION: Yes alert, Yes oriented to person, Yes oriented to place and Yes oriented to time Psych: APPEARANCE: Yes well kempt Data : 12/06/21 17:54 12/06/21 17:54 Micro: Microbiology 12/06/21 18:58 Wet Prep - Final Vaginal Other data: After consent was obtained the patient was placed in the dorsal lithotomy positi on. The lesion was identified on the right [place]'s area. 50 mcg of fentanyl was given IV. The area was cleansed with betadine solution. The abscess was grasped and a stab incision was made over the fluctuant area. Purulent material was returned. A culture was obtained. The lesion was allowed to drain freely and then cleansed. The patient tolerated the procedure well. She is to follow up if there is not a significant improvement in her symptoms or her condition worsens. A&P Assessment and plan (1) [place]'s gland abscess: I&D today script for clindamycin sent to pharmacy script for norco sent to pharmacy follow up with Dr. 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
[2021-12-06 20:34] VITALS: BP 117/86; PULSE 90; RESP 16; O2SAT 95
[2021-12-06] MEDS: ondansetron 2 mg/ML SDV 2 mL 4 MG IVP (21:25)
[2021-12-06 21:26] VITALS: PULSE 82; RESP 16; O2SAT 100
[2021-12-06 21:29] VITALS: BP 108/65; TEMP 36.6; O2SAT 98
== END 2021-12-06 21:46 | disposition home or self-care (01) ==
PROVIDERS: Nurse Practitioner Family; Emergency Provider Emergency Medicine; PCP Family Medicine
DX: O23.20 Infections of urethra in pregnancy, unspecified trimester (principal); N34.0 Urethral abscess; O26.899 Other specified pregnancy related conditions, unspecified trimester; M54.2 Cervicalgia; K02.9 Dental caries, unspecified; Z3A.00 Weeks of gestation of pregnancy not specified; Z87.891 Personal history of nicotine dependence
CPT/HCPCS: 80053; 81003; 84702; 84703; 85025; 87070; 87075; 87205; 87210; 87491; 87591; 96361; 96374; 96375; 99284; J2405; J3010

== ENCOUNTER → 2021-12-08 09:07 | Outpatient (BNVA) | payer BC, MEDICAID, SELFPAY | PROVIDERS: PCP Family Medicine; Visit Provider Counselor Mental Health | DX: F41.9 Anxiety disorder, unspecified (principal); F32.A Depression, unspecified | CPT/HCPCS: 90834 ==

== ENCOUNTER → 2021-12-09 10:32 | Outpatient (BNVA) | payer BC, MEDICAID, SELFPAY | PROVIDERS: PCP Family Medicine; Visit Provider Obstetrics & Gynecology | DX: O09.91 Supervision of high risk pregnancy, unspecified, first trimester (principal) | CPT/HCPCS: 81000 ==

== ENCOUNTER → 2021-12-12 15:19 | Outpatient (BNVA) | payer BC, MEDICAID, SELFPAY | PROVIDERS: PCP Family Medicine; Visit Provider Nurse Practitioner | DX: N39.0 Urinary tract infection, site not specified (principal); R50.9 Fever, unspecified | CPT/HCPCS: 81000; 87086; 87400 ==

== ENCOUNTER → 2021-12-15 09:10 | Outpatient (BNVA) | payer BC, MEDICAID, SELFPAY | PROVIDERS: PCP Family Medicine; Visit Provider Counselor Mental Health | DX: F41.9 Anxiety disorder, unspecified (principal); F32.A Depression, unspecified | CPT/HCPCS: 90834 ==

== ENCOUNTER → 2021-12-23 09:45 | Outpatient (BNVA) | payer BC, MEDICAID, SELFPAY | PROVIDERS: PCP Family Medicine; Visit Provider Obstetrics & Gynecology | DX: O09.91 Supervision of high risk pregnancy, unspecified, first trimester (principal); O99.411 Diseases of the circulatory system complicating pregnancy, first trimester; I34.1 Nonrheumatic mitral (valve) prolapse; N94.9 Unspecified condition associated with female genital organs and menstrual cycle; O98.211 Gonorrhea complicating pregnancy, first trimester; Z3A.00 Weeks of gestation of pregnancy not specified | CPT/HCPCS: 81000; 87252; 87255; 87491; 87591; 87624; 87661 ==

== ENCOUNTER → 2022-01-01 09:57 | Outpatient (BNVA) | payer BC, MEDICAID, SELFPAY | PROVIDERS: PCP Family Medicine; Visit Provider Counselor Mental Health | DX: F41.9 Anxiety disorder, unspecified (principal); F32.A Depression, unspecified | CPT/HCPCS: 90834 ==

== ENCOUNTER → 2022-01-02 11:15 | Outpatient (BNVA) | payer BC, MEDICAID, SELFPAY | PROVIDERS: PCP Family Medicine; Visit Provider Obstetrics & Gynecology | DX: O09.91 Supervision of high risk pregnancy, unspecified, first trimester (principal); Z3A.00 Weeks of gestation of pregnancy not specified | CPT/HCPCS: 81000 ==

== ENCOUNTER → 2022-01-05 08:55 | Outpatient (BNVA) | payer BC, MEDICAID, SELFPAY | PROVIDERS: PCP Family Medicine; Visit Provider Counselor Mental Health | DX: F41.9 Anxiety disorder, unspecified (principal); F32.A Depression, unspecified | CPT/HCPCS: 90837; 90834 ==

== ENCOUNTER → 2022-01-14 14:00 | Outpatient (BNVA) | payer BC, MEDICAID, SELFPAY | PROVIDERS: PCP Family Medicine; Visit Provider Counselor Mental Health | DX: F41.9 Anxiety disorder, unspecified (principal); F32.A Depression, unspecified | CPT/HCPCS: 90837; 90834 ==

== ENCOUNTER → 2022-01-19 10:01 | Outpatient (BNVA) | payer BC, MEDICAID, SELFPAY | PROVIDERS: PCP Family Medicine; Visit Provider Counselor Mental Health | DX: F41.9 Anxiety disorder, unspecified (principal); F32.A Depression, unspecified | CPT/HCPCS: 90791 ==

== ENCOUNTER → 2022-01-20 14:13 | Outpatient (BNVA) | payer BC, MEDICAID, SELFPAY | PROVIDERS: PCP Family Medicine; Visit Provider Obstetrics & Gynecology | DX: O09.91 Supervision of high risk pregnancy, unspecified, first trimester (principal); O98.211 Gonorrhea complicating pregnancy, first trimester; O99.411 Diseases of the circulatory system complicating pregnancy, first trimester; I34.1 Nonrheumatic mitral (valve) prolapse; O23.592 Infection of other part of genital tract in pregnancy, second trimester; A59.01 Trichomonal vulvovaginitis; O98.512 Other viral diseases complicating pregnancy, second trimester; B00.9 Herpesviral infection, unspecified; Z3A.00 Weeks of gestation of pregnancy not specified | CPT/HCPCS: 81000 ==

== ENCOUNTER → 2022-01-28 10:54 | Outpatient (BNVA) | payer BC, MEDICAID, SELFPAY | PROVIDERS: PCP Family Medicine; Visit Provider Counselor Mental Health | DX: F41.9 Anxiety disorder, unspecified (principal); F32.A Depression, unspecified | CPT/HCPCS: 90837; 90834 ==

== ENCOUNTER → 2022-02-04 11:02 | Outpatient (BNVA) | payer BC, MEDICAID, SELFPAY | PROVIDERS: PCP Family Medicine; Visit Provider Counselor Mental Health | DX: F32.A Depression, unspecified (principal); F41.9 Anxiety disorder, unspecified | CPT/HCPCS: 90834 ==

== ENCOUNTER → 2022-02-12 10:24 | Outpatient (BNVA) | payer BC, MEDICAID, SELFPAY | PROVIDERS: PCP Family Medicine; Visit Provider Counselor Mental Health | DX: F41.9 Anxiety disorder, unspecified (principal); F32.A Depression, unspecified | CPT/HCPCS: 90832 ==

== ENCOUNTER 2022-02-18 13:20 | Outpatient (CLI) | payer BC, MEDICAID, SELFPAY ==
[2022-02-18 13:35] VITALS: BP 121/69; PULSE 86
[2022-02-18 13:42] VITALS: TEMP 36.3
[2022-02-18 13:51] VITALS: BP 103/57; PULSE 90
[2022-02-18 14:05] VITALS: BP 106/63; PULSE 96
[2022-02-18 14:28] VITALS: BMI 20.9
== END 2022-02-18 14:15 | disposition home or self-care (01) ==
LOC: OPOB 13:23 → OBGYN 13:35
PROVIDERS: PCP Family Medicine; Visit Provider Obstetrics & Gynecology
DX: O26.899 Other specified pregnancy related conditions, unspecified trimester (principal); Z3A.00 Weeks of gestation of pregnancy not specified; R10.9 Unspecified abdominal pain; M54.9 Dorsalgia, unspecified
CPT/HCPCS: 99211

== ENCOUNTER 2022-02-23 12:00 | Outpatient (CLI) | payer BC, MEDICAID, SELFPAY ==
[2022-02-23] VITALS (13 sets, daily range): BP systolic 86–114; BP diastolic 47–58; PULSE 71–104; BMI 21.4
[2022-02-23 13:05] LABS: Basophils # 0.1 10^3/uL (0.0-0.1); Basophils % 0.6 %; Eosinophils # 0.1 10^3/uL (0.0-0.8); Eosinophils % 1.3 %; Hematocrit 29.6 % (37.0-47.0); Hemoglobin 9.6 g/dL (11.5-15.3); Lymphocytes # 2.1 10^3/uL (0.8-4.8); Lymphocytes % 23.3 %; Mean Corpuscular HGB Conc 32.4 g/dL (30.0-36.0); Mean Corpuscular Hemoglobin 32.4 pg (28.0-34.0); Mean Platelet Volume 9.8 fL (7.4-10.4); Monocytes # 0.6 10^3/uL (0.2-0.9); Monocytes % 6.6 %; Neutrophils # 5.91 10^3/uL (1.8-7.7); Neutrophils % 67.3 %; Nucleated Red Blood Cells % 0 %; Platelet Count 244 10^3/cmm (130-400); Red Blood Count 2.96 10^6/uL (4.1-5.3); Red Cell Distribution Width 12.8 % (12.1-15.1); White Blood Count 8.8 10^3/uL (4.0-10.0)
[2022-02-23 13:14] LABS: Bilirubin Urine Neg (Negative); Blood Urine Neg (Negative); Glucose Urine UA Norm (Normal); Ketones Urine Negative (Negative); Leukocyte Esterase Urine Negative (Negative); Nitrate Urine Negative (Negative); Protein Urine Neg (Negative); Urine Appearance Clear (CLEAR); Urine Color Straw (Yellow); Urobilinogen Urine Norm (Negative); pH Urine 6.5 (5-7)
[2022-02-23 13:15] LABS: Squamous Epithelial Cell Urine RARE /hpf (0-5)
[2022-02-23 13:20] LABS: Alanine Aminotransferase 6 U/L (0-33); Alkaline Phosphatase 49 IU/L (35-105); Anion Gap 14.9 (5-19); Aspartate Amino Transferase 13 U/L (0-32); Blood Urea Nitrogen 7 mg/dL (6-20); Calcium 8.9 mg/dL (8.5-10.5); Carbon Dioxide 21 mmol/L (22-29); Chloride 103 mmol/L (98-107); Globulin 3.1 g/dL (1.3-4.6); Glomerular Filtration Rate 183.8 mL/min (90-130); Glucose 81 mg/dL (65-115); Osmolality Calculated 277 mOsm/kg (285-295); Potassium 3.9 mmol/L (3.5-5.1); Sodium 135 mmol/L (136-145); Total Bilirubin 0.2 mg/dL (0.15-1.2); Total Protein 7.1 g/dL (6.6-8.7); Uric Acid 3.1 mg/dL (2.4-5.7)
[2022-02-23 13:30] LABS: Urine Creatinine 18 mg/dL (28-217); Urine Protein Random 4 mg/dL
[2022-02-23 13:34] LABS: UPRO/UCREAT Ratio 0.22 mg/mg CR
== END 2022-02-23 15:53 | disposition home or self-care (01) ==
LOC: OPOB 12:01 → OBGYN 12:03
PROVIDERS: Obstetrics & Gynecology; PCP Family Medicine; Visit Provider Obstetrics & Gynecology
DX: O26.899 Other specified pregnancy related conditions, unspecified trimester (principal); Z3A.00 Weeks of gestation of pregnancy not specified
CPT/HCPCS: 80053; 81000; 81001; 82570; 84156; 84550; 85025; 99211

== ENCOUNTER → 2022-03-03 13:01 | Outpatient (BNVA) | payer BC, MEDICAID, SELFPAY | PROVIDERS: PCP Family Medicine; Visit Provider Obstetrics & Gynecology | DX: O09.91 Supervision of high risk pregnancy, unspecified, first trimester (principal); Z3A.00 Weeks of gestation of pregnancy not specified | CPT/HCPCS: 81000; 87661 ==

== ENCOUNTER → 2022-03-11 14:12 | Outpatient (BNVA) | payer BC, MEDICAID, SELFPAY | PROVIDERS: PCP Family Medicine; Visit Provider Counselor Mental Health | DX: F41.9 Anxiety disorder, unspecified (principal); F32.A Depression, unspecified | CPT/HCPCS: 90832; 90834 ==

== ENCOUNTER 2022-03-13 20:29 | Outpatient (CLI) | payer BC, MEDICAID, SELFPAY ==
[2022-03-13 20:43] VITALS: BP 117/67; PULSE 74
[2022-03-13 21:00] VITALS: BMI 22.3
[2022-03-13] MEDS: lactated ringers 1,000 ML 999 ML IV (21:24)
[2022-03-13 21:34] VITALS: BP 99/62; PULSE 86
[2022-03-13 22:04] VITALS: BP 104/65; PULSE 86
[2022-03-13 22:24] LABS: Bilirubin Urine Neg (Negative); Blood Urine Neg (Negative); Glucose Urine UA Norm (Normal); Ketones Urine Negative (Negative); Leukocyte Esterase Urine Negative (Negative); Nitrate Urine Negative (Negative); Protein Urine Neg (Negative); Urine Appearance Clear (CLEAR); Urine Color Colorless (Yellow); Urobilinogen Urine Norm (Negative); pH Urine 7 (5-7)
[2022-03-13 22:25] LABS: Add Urine Culture? No; Bacteria Urine TRACE /hpf; Mucus Urine TRACE /hpf; RBC Urine 0-4 /hpf (0-2); Squamous Epithelial Cell Urine 0-4 /hpf (0-5); WBC Urine 0-4 /hpf (0-5)
[2022-03-13 22:27] LABS: Urine Creatinine 21 mg/dL (28-217); Urine Protein Random 4 mg/dL
[2022-03-13 22:33] LABS: UPRO/UCREAT Ratio 0.19 mg/mg CR
[2022-03-13 22:34] VITALS: BP 108/62; PULSE 76
[2022-03-13 22:58] VITALS: BP 118/78; PULSE 76
[2022-03-13 23:15] VITALS: BP 118/78; PULSE 76; RESP 16
== END 2022-03-13 23:15 | disposition home or self-care (01) ==
LOC: OPOB 20:31 → OBGYN 20:32
PROVIDERS: PCP Family Medicine; Visit Provider Obstetrics & Gynecology
DX: O16.9 Unspecified maternal hypertension, unspecified trimester (principal); Z3A.00 Weeks of gestation of pregnancy not specified; R10.9 Unspecified abdominal pain
CPT/HCPCS: 59025; 81000; 81001; 82570; 82950; 84156; 99211

== ENCOUNTER → 2022-03-23 10:11 | Outpatient (BNVA) | payer BC, MEDICAID, SELFPAY | PROVIDERS: PCP Family Medicine; Visit Provider Obstetrics & Gynecology | DX: O09.90 Supervision of high risk pregnancy, unspecified, unspecified trimester (principal); Z3A.00 Weeks of gestation of pregnancy not specified | CPT/HCPCS: 81000 ==

== ENCOUNTER → 2022-04-10 08:55 | Outpatient (BNVA) | payer BC, MEDICAID, SELFPAY | PROVIDERS: PCP Family Medicine; Visit Provider Obstetrics & Gynecology | DX: O09.91 Supervision of high risk pregnancy, unspecified, first trimester (principal); O26.893 Other specified pregnancy related conditions, third trimester; Z67.91 Unspecified blood type, Rh negative; Z86.19 Personal history of other infectious and parasitic diseases; O09.93 Supervision of high risk pregnancy, unspecified, third trimester; Z3A.00 Weeks of gestation of pregnancy not specified | CPT/HCPCS: 81000; 85027; 86850; 87661 ==

== ENCOUNTER → 2022-04-13 12:02 | Outpatient (BNVA) | payer BC, MEDICAID, SELFPAY | PROVIDERS: PCP Family Medicine; Visit Provider Obstetrics & Gynecology | DX: R39.9 Unspecified symptoms and signs involving the genitourinary system (principal) | CPT/HCPCS: 81000; 87077; 87086; 87184 ==

== ENCOUNTER 2022-04-16 09:28 | Outpatient (CLI) | payer BC, MEDICAID, SELFPAY ==
[2022-04-16] VITALS (38 sets, daily range): BP systolic 85–109; BP diastolic 46–61; PULSE 60–87; RESP 17; TEMP 37.2; O2SAT 97–100; BMI 22.4
[2022-04-16 10:30] LABS: Basophils # 0.1 10^3/uL (0.0-0.1); Basophils % 0.5 %; Eosinophils # 0.1 10^3/uL (0.0-0.8); Eosinophils % 1.4 %; Hematocrit 28.4 % (37.0-47.0); Hemoglobin 9.4 g/dL (11.5-15.3); Lymphocytes # 1.8 10^3/uL (0.8-4.8); Mean Corpuscular HGB Conc 33.1 g/dL (30.0-36.0); Mean Corpuscular Hemoglobin 33.7 pg (28.0-34.0); Mean Corpuscular Volume 101.8 fl (81-99); Mean Platelet Volume 9.8 fL (7.4-10.4); Monocytes # 0.6 10^3/uL (0.2-0.9); Monocytes % 6.8 %; Neutrophils # 6.67 10^3/uL (1.8-7.7); Neutrophils % 70.4 %; Nucleated Red Blood Cells % 0 %; Platelet Count 228 10^3/cmm (130-400); Red Blood Count 2.79 10^6/uL (4.1-5.3); Red Cell Distribution Width 13.2 % (12.1-15.1); White Blood Count 9.5 10^3/uL (4.0-10.0)
[2022-04-16 10:43] LABS: Bilirubin Urine Neg (Negative); Blood Urine 2+ (Negative); Glucose Urine UA Norm (Normal); Ketones Urine Negative (Negative); Nitrate Urine Negative (Negative); Protein Urine Neg (Negative); Urine Appearance Cloudy (CLEAR); Urine Color Yellow (Yellow); Urobilinogen Urine Norm (Negative); pH Urine 6 (5-7)
[2022-04-16 10:44] LABS: Add Urine Culture? No; Bacteria Urine 1+ /hpf; Leukocyte Esterase Urine 2+ (Negative); RBC Urine 0-4 /hpf (0-2); Squamous Epithelial Cell Urine 15-25 /hpf (0-5); WBC Urine 80-100 /hpf (0-5)
[2022-04-16 11:54] LABS: Amphetamines Screen Urine Negative (Negative); Barbiturates Screen Urine Negative (Negative); Benzodiazepines Screen Urine Negative (Negative); Cocaine Screen Urine Negative (Negative); Opiate Screen Urine Negative (Negative); PCP Screen Urine Negative (Negative); THC Screen Urine Positive (Negative)
--- NOTE | 2022-04-16 12:28 | ECG_ITS ---
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 Measurements Intervals [place] Rate: 69 P: 44 HI: 158 QRS: 90 QRSD: 89 T: 48 QT: 370 QTc: 398 Interpretive Statements SINUS RHYTHM WITH SINUS ARRHYTHMIA Compared to ECG 04/28/2020 12:59:45 No significant changes Electronically Signed On 04-16-2022 22:15:37 CDT by David Stallings M.D. [email or web address]
[2022-04-16] MEDS: acetaminophen 500 mg Tablet 1000 MG PO (13:37)
--- NOTE | 2022-04-16 14:28 | P.CONIM_ITS ---
Providers/Reason For Consult Consulting Physician/Specialty*: Frase/Hosptialist Reason for Consult*: BP 85 systolic, P 60, history of MVP Requesting Physician: Dr Ash Attending Physician: Dhaval Ash MD Primary Care Provider: Carly Alvarez DO History of Present Illness History of Present Illness Hayden Stewart is a 31 year old female who presented to OB triage today with complaint of low blood pressures. She woke up not feeling well. Reported some dysuria. She checked her blood pressure and noted that her systolic was in the 70s to 80s and then her heart rate was around 60. She has a history of mitral valve prolapse as well as palpitations. She follows with Dr. Shiraz Vega at [facility]. She has chronically been on carvedilol. At times she has had to be off of the due to low blood pressures and other times the doses had to be doubled due to high blood pressures. She has also had variability and heart rates. Last month patient had episode of blood pressures as high as 170s over 50s. Urine did not show any protein nor were there any other significant findings of eclampsia. Carvedilol had been held at that point in time from what I can gather. It was resumed and blood pressures improved to 100s to 110s systolic. Heart rate was in the 70s. She has been back on the carvedilol since then. She has seen Dr. Mckeon and an arrhythmia monitor has been ordered. It is in place currently. Mrs. Stewart does report palpitations and really just her heart not feeling right at times. She does have some shortness of breath. She has edema at times. Reports that her hands and feet get purple. No recent syncope. Upon presentation to the OB triage blood pressures was 85/47 and pulse was 60. Hospitalist were consulted because of the vital signs. Mrs. Stewart is 29 weeks with a girl. She was seen yesterday at maternal- medicine. Reports that albuterol has cyst somewhere but it was decreasing in size. No indication from maternal- medicine that she had abnormal amniotic fluid volume. Blood pressures and heart rate were checked but she does not know the values. Because of how low patient's blood pressure was at home this morning she did not take her carvedilol. No fever. Patient's current maternal record and previous cardiology notes from here were reviewed as well as a visit note from Dr. Vega from 04 March. Review of Systems Const: Reports: fatigue and malaise; Denies: fever(s) Eyes: Denies: change in vision ENMT: Denies: throat pain or nasal congestion Card: Reports: palpitations, swelling of feet/ankles (Sometimes), acrocyanosis (Sometimes) and other (heart not right); Denies: chest pain Resp: Reports: dyspnea (Sometimes, not current ) GI: Reports: nausea; Denies: vomiting or diarrhea (Chronic IBS with diarrhea not recent event) : Reports: dysuria and urinary frequency Neuro: Denies: headache(s) Psych: Reports: anxiety Medications/Allergies Home Medications Medication Instructions Recorded Confirmed Last Taken Type vit no.95-ferrous 1 tab PO BEDTIME 12/06/21 04/16/22 03/13/22 11:00 History fumarate 28 mg-folic acid 800 mcg tablet () Folic Acid PO DAILY 01/02/22 04/10/22 03/13/22 11:00 History carvedilol 3.125 mg tablet 3.125 mg PO BID 02/23/22 04/16/22 03/13/22 11:00 History docusate sodium 100 mg capsule 100 mg PO DAILY #90 cap 04/10/22 04/16/22 Unknown Rx (Colace) terconazole 0.4 % vaginal cream 1 appful VAGINAL .nightly #45 g 04/10/22 04/16/22 Unknown Rx nitrofurantoin macrocrystal 100 mg 100 mg PO BID 7 Days #14 cap 04/14/22 04/16/22 Unknown Rx capsule Allergies Allergy/AdvReac Type Severity Reaction Status Date / Time kiwi Allergy Severe throat Verified 04/10/22 09:07 swelling hydrocodone Allergy rash, hives Verified 04/10/22 09:07 latex Allergy rash, hives Verified 04/10/22 09:07 nitrofurantoin Allergy rash, hives Verified 04/10/22 09:07 [From Macrobid] promethazine [From Phenergan] Allergy salas my Verified 04/10/22 09:07 body tramadol Allergy rash, hives Verified 04/10/22 09:07 Received Tylenol PFSH Acute PFSH: Medical History (Updated 04/16/22 @ 14:41 by Yadira Quintero MD) Anxiety and depression Gastroparesis Reports is idiopathic. Has been self treating associated nausea with marijuana. Gonorrhea contact, treated History of Holter monitoring 04/16/[address] IBS (irritable bowel syndrome) more diarrhea Memory loss due to medical condition Mitral valve prolapse No pertinent past medical history neghx:htn,dm,thyroid,dvt/pe PCP: Antonio Palpitations Due to mitral valve prolapse. On carvedilol Psychiatric care Sinus arrhythmia Surgical History H/O laparoscopy (~2017) Albino-- for pelvic pain; no endometriosis, just IBS related H/O lumpectomy Left breast lumpectomy - benign per patient at age 15. History of tonsillectomy (~1996) Family History (Updated 04/16/22 @ 15:19 by Yadira Quintero MD) Mother Hypertension Hyperlipidemia Grandmother Stroke Paternal grandmother Breast cancer Paternal great grandmother Sister Thyroid disease Other Anxiety and depression Denies family history of Colon cancer Ovarian cancer Diabetes Arrhythmia Heart disease Hypercholesteremia Uterine cancer Social History (Updated 04/16/22 @ 14:50 by Yadira Quintero MD) Smoking and tobacco status: former smoker Substance/Drug Use: current Substance/Drug use type: Marijuana Female Reproductive History: : 5 Para: 3 Vitals/I&O/Wt Last Vital Signs Temp 99.0 F 04/16/22 09:42 Pulse 83 04/16/22 14:11 Resp 17 04/16/22 09:59 BP 92/54 04/16/22 14:11 Pulse Ox 100 04/16/22 11:11 Weight last 48 hrs Weight 57.606 kg Physical Exam Narrative: Constitutional: Awake and alert, cooperative, looks tired HEENT: Normocephalic, extraocular movements intact, moist mucous membranes Respiratory: Clear to auscultation Cardiovascular: Regular, valve click noted, peripheral pulses normal Abdomen: Gravid Extremities: No pitting edema Skin: Dry Neuro: Speech clear, no abnormal movements Psych: Mildly anxious but otherwise normal affect Data : 04/16/22 10:13 Other Labs: Laboratory Results WBC 9.5 10^3/uL (4.0-10.0) 04/16/22 10:13 RBC 2.79 10^6/uL (4.1-5.3) L 04/16/22 10:13 Hgb 9.4 g/dL (11.5-15.3) L 04/16/22 10:13 Hct 28.4 % (37.0-47.0) L 04/16/22 10:13 MCV 101.8 fl (81-99) H 04/16/22 10:13 MCH 33.7 pg (28.0-34.0) 04/16/22 10:13 MCHC 33.1 g/dL (30.0-36.0) 04/16/22 10:13 RDW 13.2 % (12.1-15.1) 04/16/22 10:13 Plt Count 228 10^3/cmm (130-400) 04/16/22 10:13 MPV 9.8 fL (7.4-10.4) 04/16/22 10:13 Neut % (Auto) 70.4 % 04/16/22 10:13 Lymph % (Auto) 19.0 % 04/16/22 10:13 [place] % (Auto) 6.8 % 04/16/22 10:13 Eos % (Auto) 1.4 % 04/16/22 10:13 Baso % (Auto) 0.5 % 04/16/22 10:13 Neut # (Auto) 6.67 10^3/uL (1.8-7.7) 04/16/22 10:13 Lymph # (Auto) 1.8 10^3/uL (0.8-4.8) 04/16/22 10:13 [place] # (Auto) 0.6 10^3/uL (0.2-0.9) 04/16/22 10:13 Eos # (Auto) 0.1 10^3/uL (0.0-0.8) 04/16/22 10:13 Baso # (Auto) 0.1 10^3/uL (0.0-0.1) 04/16/22 10:13 Nucleated RBC % (auto) 0 % 04/16/22 10:13 Nucleated RBCs # 0.0 /100WBC 04/16/22 10:13 Urine Color Yellow (Yellow) 04/16/22 10:13 Urine Appearance Cloudy (CLEAR) 04/16/22 10:13 Urine pH 6 (5-7) 04/16/22 10:13 Ur Specific [place] 1.020 (1.005-1.030) 04/16/22 10:13 Urine Protein Neg (Negative) 04/16/22 10:13 Urine Glucose (UA) Norm (Normal) 04/16/22 10:13 Urine Ketones Negative (Negative) 04/16/22 10:13 Urine Blood 2+ (Negative) H 04/16/22 10:13 Urine Nitrate Negative (Negative) 04/16/22 10:13 Urine Bilirubin Neg (Negative) 04/16/22 10:13 Urine Urobilinogen Norm mg/dL (Negative) 04/16/22 10:13 Ur Leukocyte Esterase 2+ (Negative) H 04/16/22 10:13 Urine RBC 0-4 /hpf (0-2) H 04/16/22 10:13 Urine WBC 80-100 /hpf (0-5) H 04/16/22 10:13 Ur Squamous Epith Cells 15-25 /hpf (0-5) H 04/16/22 10:13 Amorphous Sediment Not Reportable 04/16/22 10:13 Urine Bacteria 1+ /hpf (NONE) H 04/16/22 10:13 Urine Opiates Screen Negative ng/mL (Negative) 04/16/22 10:13 Ur Barbiturates Screen Negative ng/mL (Negative) 04/16/22 10:13 Ur Phencyclidine Scrn Negative ng/mL (Negative) 04/16/22 10:13 Ur Amphetamines Screen Negative ng/mL (Negative) 04/16/22 10:13 U Benzodiazepines Scrn Negative ng/mL (Negative) 04/16/22 10:13 Urine Cocaine Screen Negative ng/mL (Negative) 04/16/22 10:13 U Marijuana (THC) Screen Positive ng/mL (Negative) H 04/16/22 10:13 Other data: Normal ECHO at cardiologists office 01/15/2022 A&P Assessment and plan (1) Alteration in vital signs: Low normal blood pressure and heart rate as described with lows of 85/47 and 60 respectively this OB triage visit In a patient with wide variability in vital signs both during and outside of from history. Has known mitral valve prolapse and sinus arrythmia. Follows with Dr Shiraz Hernández at [facility] [[phone]]. Chronically on carvedilol, presently at 3.125 mg po bid. Has been on variable doses. Aware of risks/benefits of medication in terms of . Status: Acute (2) Sinus arrhythmia: Noted on EKG QT 370/QTc 398 Status: Acute (3) Mitral valve prolapse: Symptomatic Status: Acute (4) Current use of beta wilda: Carvedilol Status: Acute (5) History of Holter monitoring: External arrhythmia monitor in place currently through Dr Hernández's office Status: Acute (6) : 29 weeks gestation Status: Acute Qualifiers: Weeks of gestation: 29 weeks Qualified Code(s): Z3A.29 - 29 weeks gestation of Plan Patient was seen and examined. History reviewed. I had an opportunity to speak with her financial counselor Dr. Shiraz Hernández. We reviewed current vital signs and EKG findings, there is reason for presentation today. His recommendation at this point in time is to hold carvedilol. Patient has the ability to monitor blood pressure and heart rate at home. She is to resume carvedilol when her blood pressure is above 110 systolic as long as her heart rate is staying above 60. If her blood pressure further drops below 90 systolic can again hold the carvedilol. She has an arrhythmia monitor in place presently through his office to maintain current plans for follow-up with them. Reviewed recommendations from her financial counselor with Mrs. Stewart and she was in agreement with plans. Current blood pressures are 90s systolic with heart rates 70s to 80s. Mrs. Stewart was given an opportunity to ask questions. Thank you for consultation and opportunity to participate in Mrs. Stewart's care. Coding Level of Care Code Acute Aqueduct And Reservoir Keeper for Chg Fwd Diagnoses Alteration in vital signs R68.89 Mitral valve prolapse I34.1 Current use of beta wilda Z79.899 Z3A.29 Weeks of gestation: 29 weeks Sinus arrhythmia I49.8 History of Holter monitoring Z98.890
== END 2022-04-16 14:45 | disposition home or self-care (01) ==
LOC: OPOB 09:29 → OBGYN 09:30
PROVIDERS: PCP Family Medicine; Visit Provider Obstetrics & Gynecology
DX: O26.892 Other specified pregnancy related conditions, second trimester (principal); Z3A.29 29 weeks gestation of pregnancy; R68.89 Other general symptoms and signs; I34.1 Nonrheumatic mitral (valve) prolapse; Z79.899 Other long term (current) drug therapy; I49.8 Other specified cardiac arrhythmias
CPT/HCPCS: 36415; 59025; 80306; 81001; 85025; 87077; 87086; 87186; 93005; 99211

== ENCOUNTER → 2022-04-24 10:27 | Outpatient (BNVA) | payer BC, SELFPAY | PROVIDERS: PCP Family Medicine; Visit Provider Obstetrics & Gynecology | DX: O09.91 Supervision of high risk pregnancy, unspecified, first trimester (principal); O98.211 Gonorrhea complicating pregnancy, first trimester; O23.592 Infection of other part of genital tract in pregnancy, second trimester; A59.01 Trichomonal vulvovaginitis; O98.512 Other viral diseases complicating pregnancy, second trimester; R39.9 Unspecified symptoms and signs involving the genitourinary system; B00.9 Herpesviral infection, unspecified; Z3A.00 Weeks of gestation of pregnancy not specified | CPT/HCPCS: 81000 ==

== ENCOUNTER 2022-05-25 09:42 | Outpatient (CLI) | payer BC, MEDICAID, SELFPAY ==
[2022-05-25] VITALS (17 sets, daily range): BP systolic 106–138; BP diastolic 54–79; PULSE 57–81; RESP 18; TEMP 35.9; BMI 24.3
[2022-05-25 10:58] LABS: Amphetamines Screen Urine Negative (Negative); Barbiturates Screen Urine Negative (Negative); Benzodiazepines Screen Urine Negative (Negative); Bilirubin Urine Neg (Negative); Blood Urine Neg (Negative); Cocaine Screen Urine Negative (Negative); Glucose Urine UA Norm (Normal); Ketones Urine Negative (Negative); Leukocyte Esterase Urine Negative (Negative); Nitrate Urine Negative (Negative); Opiate Screen Urine Negative (Negative); PCP Screen Urine Negative (Negative); Protein Urine Neg (Negative); Specific Gravity, Urine 1.005 (1.005-1.030); THC Screen Urine Positive (Negative); Urine Appearance Clear (CLEAR); Urine Color Straw (Yellow); Urobilinogen Urine Norm (Negative); pH Urine 7 (5-7)
[2022-05-25 10:59] LABS: Add Urine Culture? No; Bacteria Urine TRACE /hpf; WBC Urine RARE /hpf (0-5)
[2022-05-25] MEDS: dextrose 5%-lactated ringers 1,000 ML 999 ML IV ×2 (11:01→12:23)
[2022-05-25] MEDS: ondansetron 2 mg/ML SDV 2 mL 4 MG IVP (11:01)
[2022-05-25] MEDS: hyDROXYzine 25 mg Capsule 50 MG PO (12:22)
== END 2022-05-25 13:33 | disposition home or self-care (01) ==
LOC: OPOB 09:43 → OBGYN 09:45
PROVIDERS: PCP Family Medicine; Visit Provider Obstetrics & Gynecology
DX: O26.899 Other specified pregnancy related conditions, unspecified trimester (principal); Z3A.00 Weeks of gestation of pregnancy not specified; R10.9 Unspecified abdominal pain; R11.0 Nausea
CPT/HCPCS: 59025; 80306; 81001; 99211; J2405

== ENCOUNTER → 2022-06-05 10:11 | Outpatient (BNVA) | payer BC, SELFPAY | PROVIDERS: PCP Family Medicine; Visit Provider Nurse Practitioner Women's Health | DX: O09.90 Supervision of high risk pregnancy, unspecified, unspecified trimester (principal); O99.891 Other specified diseases and conditions complicating pregnancy; R82.71 Bacteriuria; O98.219 Gonorrhea complicating pregnancy, unspecified trimester; O23.599 Infection of other part of genital tract in pregnancy, unspecified trimester; A59.01 Trichomonal vulvovaginitis; I34.1 Nonrheumatic mitral (valve) prolapse; O23.592 Infection of other part of genital tract in pregnancy, second trimester; O98.211 Gonorrhea complicating pregnancy, first trimester; F41.9 Anxiety disorder, unspecified; F32.A Depression, unspecified; O23.40 Unspecified infection of urinary tract in pregnancy, unspecified trimester; B95.1 Streptococcus, group B, as the cause of diseases classified elsewhere; A60.00 Herpesviral infection of urogenital system, unspecified | CPT/HCPCS: 81000; 87086; 87491; 87591; 87661 ==

== ENCOUNTER → 2022-06-12 11:10 | Outpatient (BNVA) | payer BC, SELFPAY | PROVIDERS: PCP Family Medicine; Visit Provider Obstetrics & Gynecology | DX: O09.90 Supervision of high risk pregnancy, unspecified, unspecified trimester (principal); Z3A.00 Weeks of gestation of pregnancy not specified | CPT/HCPCS: 81000; 87081 ==

== ENCOUNTER → 2022-06-16 15:57 | Outpatient (BNVA) | payer BC, SELFPAY | PROVIDERS: PCP Family Medicine; Visit Provider Obstetrics & Gynecology | DX: O09.90 Supervision of high risk pregnancy, unspecified, unspecified trimester (principal); Z3A.00 Weeks of gestation of pregnancy not specified | CPT/HCPCS: 81000 ==

== ENCOUNTER 2022-06-30 05:39 | Emergency (ER) | payer BC, MEDICAID, SELFPAY ==
[2022-06-30 05:40] VITALS: BP 128/86; PULSE 82; RESP 17; TEMP 36.7; O2SAT 97; BMI 21.6
--- NOTE | 2022-06-30 06:02 | ED_ITS ---
HPI - General Adult General: Chief complaint: General Medical Stated complaint: possible mastitis Time Seen by Provider: 06/30/22 05:59 History of Present Illness: 32-year-old female presents emergency room with bilateral breast pain. She is breast-feeding is been having difficult time with engorgement. She is generally had flulike symptoms. She was seen yesterday in outpatient clinic she reported a temp of 100 although there is no documented temperature with a subjective report. She was started on Augmentin. She has been using ice and heat to the breast states is getting worse. Onset (ago): day(s) Severity: moderate Quality: aching and constant Pain Consistency: constant Relieving factors: cold therapy Exacerbating factors: none Associated symptoms: Reports chest pain (Bilateral breast discomfort and engorgement) and malaise; Deny confusion, cough, diaphoresis, decreased appetite, dyspnea, fevers/chills, headache(s), nausea, rash, palpitations, seizures, short of breath, syncope, vomiting or weakness Treatments prior to arrival: none Review of Systems Const: Reports: fever(s) (Subjective), fatigue and malaise; Denies: diaphoresis ENMT: Denies: throat pain, ear or mastoid pain, nasal discharge or nasal congestion Card: Reports: chest pain (Bilateral breast discomfort and engorgement); Denies: palpitations, irregular heart rhythm or syncope Resp: Denies: dyspnea GI: Denies: abdominal pain, nausea or vomiting : Denies: flank pain, difficulty voiding, dysuria, urinary frequency or urinary urgency Skin/Breast: Reports: breast tenderness and breast pain; Denies: rash Neuro: Denies: headache(s) or confusion PFS ED PFSH: Medical History Anxiety and depression Gastroparesis Reports is idiopathic. Has been self treating associated nausea with marijuana. Gonorrhea contact, treated History of Holter monitoring 04/16/[address] IBS (irritable bowel syndrome) more diarrhea Memory loss due to medical condition Mitral valve prolapse No pertinent past medical history neghx:htn,dm,thyroid,dvt/pe PCP: Antonio Palpitations Due to mitral valve prolapse. On carvedilol Psychiatric care Sinus arrhythmia Surgical History H/O laparoscopy (~2017) Albino-- for pelvic pain; no endometriosis, just IBS related H/O lumpectomy Left breast lumpectomy - benign per patient at age 15. History of tonsillectomy (~1996) Family History Mother Hypertension Hyperlipidemia Grandmother Stroke Paternal grandmother Breast cancer Paternal great grandmother Sister Thyroid disease Other Anxiety and depression Denies family history of Colon cancer Ovarian cancer Diabetes Arrhythmia Heart disease Hypercholesteremia Uterine cancer Social History Smoking and tobacco status: never smoked Female Reproductive History: Para: 3 Physical Exam Const: COMMON NORMALS: no acute distress GENERAL APPEARANCE: cooperative and comfortable ORIENTATION/CONSCIOUSNESS: Yes awake, Yes oriented to person, Yes oriented to place and Yes oriented to time HENMT: COMMON NORMALS: normocephalic and atraumatic HEAD & SCALP: normocephalic and atraumatic Chest: Breast/axilla inspection: Yes normal inspection of the axillae (No lymphadenopathy) BREAST/AXILLA PALPATION: Yes normal palpation of the axillae, Yes no axillary lymphadenopathy and Yes abnormal palpation of the breast (Breast firm exquisitely tender erythema around the areola and nipple. ) NIPPLE/AREOLA: Yes nipple discharge Nipple discharge: milky discharge OTHER: No palpable abscess bilaterally engorged. Some crusting greater on the left than the right Resp: COMMON NORMALS: normal respiratory effort, No retractions, No use of accessory muscles and clear to auscultation bilaterally AUSCULTATION: clear to auscultation bilaterally Cardio: COMMON NORMALS: regular rate, regular rhythm and No murmurs present (C ardio) RATE: regular rate RHYTHM: regular rhythm Extremity: COMMON NORMALS: normal to inspection, capillary refill normal, no clubbing, cyanosis or edema, no calf tenderness and no pedal edema Neuro: SENSORIUM/ORIENTATION: Yes oriented to person, Yes oriented to place and Yes oriented to time Skin: COMMON NORMALS: no rashes or lesions noted GENERAL SKIN EXAM: no rashes or lesions noted Course Vital Signs: Vital signs: Vital Signs Temperature 98.0 F 06/30/22 05:40 Pulse Rate 82 06/30/22 05:40 Respiratory Rate 17 06/30/22 05:40 Blood Pressure 128/86 06/30/22 05:40 Pulse Oximetry 97 06/30/22 05:40 Oxygen Delivery Me thod 06/30/22 05:40 MDM - General Adult Medical Decision Making Low patient visit with customer service consultant. Avoid heat to the breast ice. Regularly scheduled pumping or breast-feeding sessions lanolin to the nipple area and areola after each feeding or pumping session. Concerned about selecting out for resistant staph infections stop the Augmentin and start Keflex 500 4 times daily. We will have her follow-up with consultants in the OB department in the next 1 to 2 days. Medical Records I reviewed the patient's medical records. Lab Data I reviewed the patient's lab results. Discharge Plan Discharge Patient Disposition: Home Clinical Impression: Mastitis Condition: Stable Prescriptions: New cephalexin 500 mg capsule 500 mg PO Q6H 10 Days Qty: 40 0RF Discontinued amoxicillin-pot clavulanate 875-125 mg tablet 1 tab PO BID 10 Days Qty: 20 0RF No Action Alive Calcium-Vitamin D3 260 mg calcium- 25 mcg-50 mg tablet,chewable PO valacyclovir [Valtrex] 500 mg tablet 500 mg PO BID Qty: 60 1RF Folic Acid PO DAILY PNV cmb#95-ferrous fumarate-FA [] 28 mg iron- 800 mcg Tablet 1 tab PO BEDTIME buspirone 5 mg Tablet Iron (ferrous sulfate) 325 mg (65 mg iron) Tablet 325 mg PO DAILY potassium 20 mg Tablet,Chewable PO Discharge Orders: Discharge ED (Routine); Ordered 06/30/22 Ordered By: Cornel Thomas Referrals: Carly Alvarez DO [Primary Care Provider] - Discharge Diet: Usual diet Discharge Activity: Increase activity as tolerated Patient Instructions: Opioid Safety, Pain Management Activity Restrictions/Additional Instructions: Pump or feed regularly. Use lanolin to the nipple and areola are area after each session of pumping or breast-feeding. Stop Augmentin and start Keflex 500 4 times daily for 10 days. Follow-up with customer service consultant in the OB department within the next 2 to 3 days. Coding Level of Care Code ED Change Management Consultant for Agustin Vega
== END 2022-06-30 06:48 | disposition home or self-care (01) ==
PROVIDERS: Emergency Provider Family Medicine; PCP Family Medicine
DX: O91.23 Nonpurulent mastitis associated with lactation (principal)
CPT/HCPCS: 99283

== ENCOUNTER 2022-08-18 15:41 | Outpatient (CLI) | payer BC, MEDICAID, SELFPAY ==
--- NOTE | 2022-08-18 16:19 | XR_ITS ---
WS: [id number] Exam: XR thoracic spine 2V [id number] Date/Time of Exam: 08/18/2022 4:21 PM Reason For Exam: thoracic back pain Comparison 06/20/2019. No fracture or dislocation. No scoliosis noted. Normal paraspinal soft tissues. XR/XR thoracic spine 2V [id number] IMPRESSION: 1. No acute fracture or malalignment. No significant change.
== END 2022-08-18 15:42 | disposition home or self-care (01) ==
LOC: RAD 15:43
PROVIDERS: PCP Family Medicine; Visit Provider Family Medicine
DX: M54.6 Pain in thoracic spine (principal)
CPT/HCPCS: 72070

== ENCOUNTER → 2022-09-29 14:40 | Outpatient (BNVA) | payer BC, MEDICAID, SELFPAY | PROVIDERS: PCP Family Medicine; Visit Provider Obstetrics & Gynecology | DX: N89.8 Other specified noninflammatory disorders of vagina (principal) | CPT/HCPCS: 87491; 87591; 87661 ==

== ENCOUNTER 2023-01-22 10:16 | Outpatient (CLI) | payer BC, MEDICAID, SELFPAY | END 2023-01-22 10:17 | disposition home or self-care (01) | LOC: LAB 10:22 | PROVIDERS: PCP Family Medicine; Visit Provider Obstetrics & Gynecology | DX: N92.6 Irregular menstruation, unspecified (principal) | CPT/HCPCS: 36415; 84702 ==

== ENCOUNTER 2023-03-18 09:49 | Outpatient (CLI) | payer BC, MEDICAID, SELFPAY ==
--- NOTE | 2023-03-18 09:56 | MM_ITS ---
WS: [id number] BILATERAL 3D TOMOSYNTHESIS DIGITAL DIAGNOSTIC MAMMOGRAPHY WITH CAD CLINICAL INFORMATION: N63.0 - Unspecified lump in unspecified breast HISTORY: Breast-feeding. History of mastitis. Palpable lumps LEFT breast. COMPARISON: None. TECHNIQUE: Bilateral CC, MLO, and ML views. FINDINGS: The breasts are composed of heterogeneous fibroglandular density, which can limit the detection of sm all underlying mass lesions. Diffuse trabecular thickening compatible with breast-feeding. Palpable m arkers LEFT breast. No definite parenchymal abnormalities deep to the palpable markers. Ultrasound de scribed below. Unremarkable RIGHT breast. ULTRASOUND BREAST LEFT TECHNIQUE: Ultrasound left breast focused area of concern. CLINICAL INFORMATION: N63.0 - Unspecified lump in unspecified breast FINDINGS: Ultrasound LEFT breast areas of palpable concern at the 3:00 and 9:00 positions and LEFT nipple. Dila jaden ducts retroareolar compatible with current active breast-feeding. No evidence of suspicious cysti c or solid lesion in the areas of palpable concern. No suspicious lesions to target for biopsy. Findi ngs are benign MM/[place] [id number] BI-RADS: 2-Benign FOLLOW UP: Age 38 Recommend annual screening mammography age 38.
== END 2023-03-18 09:50 | disposition home or self-care (01) ==
PROVIDERS: PCP Family Medicine; Visit Provider Obstetrics & Gynecology
DX: Z12.31 Encounter for screening mammogram for malignant neoplasm of breast (principal); N63.0 Unspecified lump in unspecified breast
CPT/HCPCS: 76642; 77062; G0279

== ENCOUNTER → 2023-05-24 16:35 | Outpatient (BNVA) | payer BC, MEDICAID, SELFPAY | PROVIDERS: PCP Family Medicine; Visit Provider Obstetrics & Gynecology | DX: N89.8 Other specified noninflammatory disorders of vagina (principal) | CPT/HCPCS: 87491; 87591 ==

== ENCOUNTER → 2023-06-08 11:20 | Outpatient (BNVA) | payer BC, MEDICAID, SELFPAY | PROVIDERS: PCP Family Medicine; Visit Provider Registered Nurse Neonatal Intensive Care | DX: K04.7 Periapical abscess without sinus (principal); R39.9 Unspecified symptoms and signs involving the genitourinary system | CPT/HCPCS: 81000 ==

== ENCOUNTER 2023-06-09 08:20 | Emergency (ER) | payer BC, MEDICAID, SELFPAY ==
[2023-06-09 08:23] VITALS: BP 93/54; PULSE 73; RESP 17; TEMP 36.5; O2SAT 98
--- NOTE | 2023-06-09 08:56 | DCPLANNER ---
assistant store manager trainee was asked to get information for patient for follow up with a dentist. assistant store manager trainee gave patient the information to [facility] in [facility] that take her insurance.
--- NOTE | 2023-06-09 09:23 | ED_ITS ---
HPI - Dental/Oral General: Chief complaint: Dental/Oral Stated complaint: left side of face swelling Time Seen by Provider: 06/09/23 08:26 Source: patient Mode of arrival: ambulatory History of Present Illness: 33-year-old female who presents to the emergency room with complaints of facial swelling. She has a posterior maxillary molar on the left that is painful and swollen she has had a little drainage from it intermittently she was seen 2 days ago and started on Augmentin she states she is still having discomfort. She has not been able to see a dentist at this point MD Complaint: tooth pain Teeth map: 1. Onset (ago): day(s) Duration: constant Relieving factors: nothing Exacerbating factors: nothing Associated symptoms: Reports fever(s); Denies ear or mastoid pain, gum swelling, odynophagia, sore throat or tongue swelling Treatment prior to arrival: none Review of Systems Const: Reports: fever(s), chills, fatigue and malaise ENMT: Reports: dental pain; Denies: odynophagia or ear or mastoid pain Card: Denies: chest pain, edema, dyspnea on exertion or orthopnea Resp: Denies: dyspnea, productive cough or non-productive cough GI: Denies: abdominal pain, nausea, vomiting, hematemesis, coffee ground emesis, diarrhea, constipation, bloating, hematochezia or melena : Denies: flank pain, difficulty voiding, dysuria, urinary frequency or urinary urgency Skin/Breast: Denies: rash or pruritus All/Imm: Denies: tongue swelling PFS ED PFSH: Medical History Anxiety and depression Gastroparesis Reports is idiopathic. Has been self treating associated nausea with marijuana. Gonorrhea contact, treated History of Holter monitoring 04/16/[address] IBS (irritable bowel syndrome) more diarrhea Memory loss due to medical condition Mitral valve prolapse No pertinent past medical history neghx:htn,dm,thyroid,dvt/pe PCP: Sallyert Palpitations Due to mitral valve prolapse. On carvedilol Sinus arrhythmia Surgical History H/O laparoscopy (~2018) Albino-- for pelvic pain; no endometriosis, just IBS related H/O lumpectomy Left breast lumpectomy - benign per patient at age 15. History of tonsillectomy (~1996) Family History Mother Hypertension Hyperlipidemia Grandmother Stroke Paternal grandmother Breast cancer Paternal great grandmother Sister Thyroid disease Other Anxiety and depression Denies family history of Colon cancer Ovarian cancer Diabetes Arrhythmia Heart disease Hypercholesteremia Uterine cancer Social History Smoking and tobacco status: never smoked Substance/Drug Use: current Female Reproductive History: Para: 3 Physical Exam Const: GENERAL APPEARANCE: cooperative ORIENTATION/CONSCIOUSNESS: Yes awake, Yes oriented to person, Yes oriented to place and Yes oriented to time HENMT: COMMON NORMALS: normocephalic, atraumatic and hearing grossly normal bilaterally HEAD & SCALP: normocephalic and atraumatic OTHER: No submandibular swelling Neck/C-Spine: COMMON NORMALS: full ROM, no lymphadenopathy, supple and no meningeal signs Lymph: LYMPHATIC: no lymphadenopathy noted Resp: COMMON NORMALS: normal respiratory effort, No retractions, No use of accessory muscles and clear to auscultation bilaterally AUSCULTATION: clear to auscultation bilaterally Cardio: COMMON NORMALS: regular rate, regular rhythm and No murmurs present (Cardio) RATE: regular rate RHYTHM: regular rhythm GI: COMMON NORMALS: Soft to palpation and No hepatosplenomegaly present AUSCULTATION: Yes normoactive bowel sounds PALPATION: Yes Soft to palpation, No Tenderness to palpation present (GI), No Guarding due to palpation present (GI) and Yes No hepatosplenomegaly present Extremity: COMMON NORMALS: normal to inspection, capillary refill normal, no clubbing, cyanosis or edema, no calf tenderness and no pedal edema Neuro: SENSORIUM/ORIENTATION: Yes oriented to person, Yes oriented to place and Yes oriented to time MENINGEAL SIGNS: Yes no meningeal signs Skin: COMMON NORMALS: no rashes or lesions noted GENERAL SKIN EXAM: no rashes or lesions noted Course Vital Signs: Vital signs: Vital Signs Temperature 97.7 F 06/09/23 08:23 Pulse Rate 73 06/09/23 08:23 Respiratory Rate 17 06/09/23 08:23 Blood Pressure 93/54 06/09/23 08:23 Pulse Oximetry 98 06/09/23 08:23 Oxygen Delivery Me thod Room Air 06/09/23 08:23 MDM - Dental/Oral Medical Decision Making Patient has been on Augmentin for 2 days and recommend that she continue that at this point. Recommend follow-up with dentist as soon as she is able. Medical Records I reviewed the patient's medical records. Lab Data I reviewed the patient's lab results. Discharge Plan Discharge Patient Disposition: Home Clinical Impression: Dental caries Condition: Stable Prescriptions: No Action triamcinolone acetonide 0.1 % ointment 1 applic topical BID PRN (Reason: psoriasis) 14 Days Qty: 30 2RF carvedilol 6.25 mg tablet 6.25 mg PO TID Rx Instructions: must administer with a meal/food multivitamin Tablet 1 tab PO DAILY amoxicillin-pot clavulanate 875-125 mg tablet 1 tab PO BID 7 Days Qty: 14 0RF Rx Instructions: for 7 days (rx filled 06/08/23) buspirone 5 mg tablet 5 mg PO TID prednisone 20 mg tablet 20 mg PO BID Discharge Orders: Discharge ED (Routine); Ordered 06/09/23 Ordered By: Cornel Thomas Referrals: Carly Alvarez DO [Primary Care Provider] - Patient Instructions: Opioid Safety, Pain Management Stand Alone Forms: Work/School Release Coding Level of Care Code 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
== END 2023-06-09 09:07 | disposition home or self-care (01) ==
PROVIDERS: Emergency Provider Family Medicine; PCP Family Medicine
DX: K02.9 Dental caries, unspecified (principal)
CPT/HCPCS: 99281

== ENCOUNTER 2023-07-29 15:58 | Outpatient (CLI) | payer BC, MEDICAID, SELFPAY ==
--- NOTE | 2023-07-29 16:15 | MR_ITS ---
WS: [id number] MRI HEAD WITH CONTRAST TECHNIQUE: Sagittal T1, T2 axial, T2 axial FLAIR, axial susceptibility weighted imaging, axial diffus ion weighted images, and coronal T2 images were obtained. Pre and post-T1 axial and post T1 coronal i mages. ADC and FSPGR images. CLINICAL INFORMATION: short term memory loss COMPARISON: June 2020 FINDINGS: No evidence of restricted diffusion to suggest acute ischemia. Ventricular system and basilar ciste rns are patent. Mild supratentorial white matter changes are nonspecific in a patient this age but ca n be seen with hypertension, diabetes, collagen vascular disease, and migraine headaches. Demyelinati ng disease is an additional less likely consideration. Normal corpus callosum. White matter changes a re stable since 2019. Normal posterior fossa. Normal vascular flow voids at the skull base. No extra-axial fluid collection s. No evidence of mass or mass effect. Paranasal sinuses and mastoid air cells are well aerated. No h emosiderin on the susceptibility weighted images. Normal optic chiasm and pituitary infundibulum. No abnormal gadolinium enhancement. Normal dural venous sinuses. IMPRESSION: 1. No evidence of restricted diffusion to suggest acute ischemia. 2. Stable mild patchy supratentorial white matter changes in a nonspecific in a patient of this age but can be seen with hypertension, diabetes, collagen vascular disease, and migraine headaches. Findi ngs not typical for demyelinating disease. Normal corpus callosum. 3. No abnormal gadolinium enhancement. 4. No hemosiderin on the susceptibly weighted images.
[2023-07-29] MEDS: gadobenate dimeglumine 20 mL vial IV (16:50)
[2023-07-29 19:46] LABS: Estmated Average Glucose 88; Hemoglobin A1C 4.7 % (4.0-6.0)
== END 2023-07-29 15:59 | disposition home or self-care (01) ==
LOC: RAD 16:03
PROVIDERS: PCP Family Medicine; Visit Provider Family Medicine
DX: K31.84 Gastroparesis (principal); R41.3 Other amnesia
CPT/HCPCS: 36415; 70553; 83036; A9577

== ENCOUNTER → 2023-08-02 10:05 | Outpatient (BNVA) | payer BC, MEDICAID, SELFPAY | PROVIDERS: PCP Family Medicine; Visit Provider Nurse Practitioner Family | DX: R39.9 Unspecified symptoms and signs involving the genitourinary system (principal); N92.6 Irregular menstruation, unspecified; N94.9 Unspecified condition associated with female genital organs and menstrual cycle; N30.01 Acute cystitis with hematuria | CPT/HCPCS: 81000; 81025; 87491; 87591 ==

== ENCOUNTER 2023-09-09 19:33 | Emergency (ER) | payer BC, MEDICAID, SELFPAY ==
[2023-09-09 19:36] VITALS: BP 96/64; PULSE 93; RESP 18; TEMP 36.7; O2SAT 97; BMI 21.6
--- NOTE | 2023-09-09 19:55 | ED_ITS ---
HPI - Abdominal Pain 2 General: Chief Complaint: Abdominal Pain Stated Complaint: abd pain Time Seen by Provider: 09/09/23 19:43 History of Present Illness: 33-year-old female comes in today with l ower abdominal pain since yesterday. Patient has a history of IBS and at first thought she might be having a flareup of her irritable bowel syndrome but patient got increasing nausea and bowel movement did not improve the pain. Patient reports some nausea. Patient has a history of mitral valve prolapse, gastroparesis, anxiety, irregular menstrual cycles, and IBS. Patient takes carvedilol, buspirone, metoclopramide, Tamica, and [id number] supplements. Associated Symptoms: Reports chills and nausea; Denies constipation and diarrhea Review of Systems 2 General: Reports: 10 or more systems reviewed and unremarkable except in HPI and below Const: Reports: chills Card: Denies: chest pain Resp: Denies: dyspnea GI: Reports: abdominal pain and nausea; Denies: diarrhea or constipation : Reports: irregular period; Denies: flank pain, difficulty voiding or vaginal discharge Musc: Denies: neck pain or back pain Skin/Breast: Denies: rash PFSH ED 2 PFSH: Medical History History of Holter monitoring 04/16/[address] Sinus arrhythmia Gonorrhea contact, treated No pertinent past medical history neghx:htn,dm,thyroid,dvt/pe PCP: Antonio Anxiety and depression Memory loss due to medical condition Gastroparesis Reports is idiopathic. Has been self treating associated nausea with marijuana. Palpitations Due to mitral valve prolapse. On carvedilol IBS (irritable bowel syndrome) more diarrhea Mitral valve prolapse Surgical History H/O laparoscopy (~2017) Albino-- for pelvic pain; no endometriosis, just IBS related History of tonsillectomy (~1996) H/O lumpectomy Left breast lumpectomy - benign per patient at age 15. Family History Mother Hypertension Hyperlipidemia Grandmother Stroke Paternal grandmother Breast cancer Paternal great grandmother Sister Thyroid disease Other Anxiety and depression Denies family history of Colon cancer Ovarian cancer Diabetes Arrhythmia Heart disease Hypercholesteremia Uterine cancer Social History Smoking and tobacco/nicotine status: never used tobacco/nicotine Alcohol intake: never Substance/Drug Use: never Female Reproductive History: Para: 3 Physical Exam 2 Const: COMMON NORMALS: alert HENMT: COMMON NORMALS: Normal external nose present HEAD & SCALP: normal to inspection NOSE: Normal external nose present MOUTH: Normal oral and palatal mucosa present Neck/C-Spine: COMMON NORMALS: full ROM Resp: COMMON NORMALS: normal respiratory effort and clear to auscultation bilaterally AUSCULTATION: clear to auscultation bilaterally Cardio: COMMON NORMALS: regular rate and regular rhythm RATE: regular rate RHYTHM: regular rhythm GI: COMMON NORMALS: Soft to palpation PALPATION: Yes Soft to palpation Back/Pelvis: COMMON NORMALS: thoracic and lumbar spine normal to inspection Extremity: COMMON NORMALS: full ROM Neuro: SENSORIUM/ORIENTATION: Yes alert Skin: COMMON NORMALS: turgor normal GENERAL SKIN EXAM: turgor normal Course 2 Vital Signs: Vital signs: Vital Signs Temperature 98.0 F 09/09/23 19:36 Pulse Rate 93 09/09/23 19:36 Respiratory Rate 18 09/09/23 19:36 Blood Pressure 96/64 09/09/23 19:36 Pulse Oximetry 97 09/09/23 19:36 Oxygen Delivery Me thod Room Air 09/09/23 19:36 MDM - Abdominal Pain Medical Decision Making 33-year-old female comes in today for nonlocalized abdominal pain with nausea. Patient has a history of IBS. Patient reports chills without fever. Abdomen soft with generalized tenderness. Bowel sounds are active. Skin is warm and dry. Normal turgor. Vital signs are normal. Differential diagnosis includes not limited to constipation, bowel obstruction, colitis, IBS, urinary tract infection, ovarian cyst. CBC, CMP, urinalysis were unremarkable. CT of the abdomen and pelvis noted some liver enlargement but no other significant abnormalities. Reviewed exam with patient with recommendations for further treatment and follow-up. Patient reported understanding and agreed to plan. Patient was stable and discharged home. Lab Data 09/09/23 19:59 09/09/23 19:59 Labs/Radiology: Radiology Impressions Abdomen/Pelvis CT 09/09/23 20:47 IMPRESSION: Hepatomegaly with heterogeneous attenuation of the liver which may reflect patulous hepatic steatosis or potentially sequela of hepatitis in the appropriate clinical setting. Laboratory Results WBC 5.79 10^3/uL (3.29-11.43) 09/09/23 19:59 RBC 3.84 10^6/uL (3.85-5.65) L 09/09/23 19:59 Hgb 12.40 g/dL (11.27-16.99) 09/09/23 19:59 Hct 36.5 % (36-47) 09/09/23 19:59 MCV 95.1 fl (85-98) 09/09/23 19:59 MCH 32.3 pg (27-33) 09/09/23 19:59 MCHC 34.0 g/dL (30-55) 09/09/23 19:59 RDW 11.8 % (12.1-15.1) L 09/09/23 19:59 Plt Count 246 10^3/cmm (157-399) 09/09/23 19:59 MPV 9.6 fL (7.4-10.4) 09/09/23 19:59 Neut % (Auto) 36.8 % 09/09/23 19:59 Lymph % (Auto) 47.0 % 09/09/23 19:59 [place] % (Auto) 10.5 % 09/09/23 19:59 Eos % (Auto) 4.3 % 09/09/23 19:59 Baso % (Auto) 0.9 % 09/09/23 19:59 Neut # (Auto) 2.13 10^3/uL (1.8-7.7) 09/09/23 19:59 Lymph # (Auto) 2.7 10^3/uL (0.8-4.8) 09/09/23 19:59 [place] # (Auto) 0.6 10^3/uL (0.2-0.9) 09/09/23 19:59 Eos # (Auto) 0.3 10^3/uL (0.0-0.8) 09/09/23 19:59 Baso # (Auto) 0.1 10^3/uL (0.0-0.1) 09/09/23 19:59 Nucleated RBC % (auto) 0 % 09/09/23 19:59 Nucleated RBCs # 0.0 /100WBC 09/09/23 19:59 Sodium 137 mmol/L (136-145) 09/09/23 19:59 Potassium 3.5 mmol/L (3.5-5.1) 09/09/23 19:59 Chloride 102 mmol/L (98-107) 09/09/23 19:59 Carbon Dioxide 24 mmol/L (22-29) 09/09/23 19:59 Anion Gap 14.5 (5-19) 09/09/23 19:59 BUN 10 mg/dL (6-20) 09/09/23 19:59 Creatinine 0.7 mg/dL (0.5-0.9) 09/09/23 19:59 GFR Calculation 95.2 mL/min (90-130) 09/09/23 19:59 Glucose 88 mg/dL (65-115) 09/09/23 19:59 Calculated Osmolality 282 mOsm/kg (285-295) L 09/09/23 19:59 Calcium 9.6 mg/dL (8.5-10.5) 09/09/23 19:59 Total Bilirubin 0.2 mg/dL (0.15-1.2) 09/09/23 19:59 AST 18 U/L (0-32) 09/09/23 19:59 ALT 14 U/L (0-33) 09/09/23 19:59 Alkaline Phosphatase 62 U/L (35-105) 09/09/23 19:59 Total Protein 8.0 g/dL (6.6-8.7) 09/09/23 19:59 Albumin 4.7 g/dL (3.5-5.2) 09/09/23 19:59 Globulin 3.3 g/dL (1.3-4.6) 09/09/23 19:59 Lipase 32 U/L (13-60) 09/09/23 19:59 HCG, Qual Negative (Negative) 09/09/23 19:59 Urine Color Yellow (Yellow) 09/09/23 21:13 Urine Appearance Clear (CLEAR) 09/09/23 21:13 Urine pH 5 (5-7) 09/09/23 21:13 Ur Specific [place] 1.015 (1.005-1.030) 09/09/23 21:13 Urine Protein Neg (Negative) 09/09/23 21:13 Urine Glucose (UA) Norm (Normal) 09/09/23 21:13 Urine Ketones Negative (Negative) 09/09/23 21:13 Urine Blood Neg (Negative) 09/09/23 21:13 Urine Nitrate Negative (Negative) 09/09/23 21:13 Urine Bilirubin Neg (Negative) 09/09/23 21:13 Urine Urobilinogen Norm mg/dL (Negative) 09/09/23 21:13 Ur Leukocyte Esterase Negative (Negative) 09/09/23 21:13 All radiology interpretation(s) finalized by discharge Discharge Plan Discharge Patient Disposition: Home Clinical Impression: Abdominal pain Qualifiers: Abdominal location: generalized Qualified Code(s): R10.84 - Generalized abdominal pain IBS (irritable bowel syndrome) Qualifiers: Irritable bowel syndrome type: unspecified Qualified Code(s): K58.9 - Irritable bowel syndrome without diarrhea Condition: Stable Prescriptions: New dicyclomine 20 mg tablet 20 mg PO TID PRN (Reason: abdominal pain) Qty: 20 0RF No Action carvedilol 6.25 mg tablet 6.25 mg PO BID Rx Instructions: must administer with a meal/food multivitamin Tablet 1 tab PO DAILY drospirenone-ethinyl estradiol [Natasha (28)] 3-0.03 mg tablet 1 tab PO DAILY Qty: 84 0RF ibuprofen 800 mg tablet 800 mg PO TID Qty: 90 0RF metoclopramide HCl 10 mg tablet 10 mg PO Q6H PRN triamcinolone acetonide 0.1 % cream 1 applic topical BID 7 Days Qty: 30 0RF buspirone 5 mg tablet 5 mg PO TID Discharge Orders: Discharge ED (Routine); Ordered 09/09/23 Ordered By: Blair Parkinson Referrals: Carly Alvarez DO [Primary Care Provider] - Discharge Diet: Usual diet Discharge Activity: Increase activity as tolerated Patient Instructions: Abdominal Pain (ED) Activity Restrictions/Additional Instructions: Drink plenty water and fluids. Use dicyclomine 20 mg 1 tablet/capsule every 6-8 hours as needed for abdominal pain or cramping. Continue with routine medications otherwise. Follow-up with primary care for further instructions. Return to ED for worsening symptoms such as high fever greater than 100.4, blood in vomit or stool, or new concerns. 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
[2023-09-09 20:06] LABS: Basophils # 0.1 10^3/uL (0.0-0.1); Basophils % 0.9 %; Eosinophils # 0.3 10^3/uL (0.0-0.8); Eosinophils % 4.3 %; Hematocrit 36.5 % (36-47); Lymphocytes # 2.7 10^3/uL (0.8-4.8); Mean Corpuscular Hemoglobin 32.3 pg (27-33); Mean Corpuscular Volume 95.1 fl (85-98); Mean Platelet Volume 9.6 fL (7.4-10.4); Monocytes # 0.6 10^3/uL (0.2-0.9); Monocytes % 10.5 %; Neutrophils # 2.13 10^3/uL (1.8-7.7); Neutrophils % 36.8 %; Nucleated Red Blood Cells % 0 %; Platelet Count 246 10^3/cmm (157-399); Red Blood Count 3.84 10^6/uL (3.85-5.65); Red Cell Distribution Width 11.8 % (12.1-15.1); White Blood Count 5.79 10^3/uL (3.29-11.43)
[2023-09-09] MEDS: ondansetron 2 mg/ML SDV 2 mL 4 MG IVP (20:07)
[2023-09-09] MEDS: fentaNYL 50 mcg/mL INJ 2mL IVP (20:07)
[2023-09-09] MEDS: sodium chloride 0.9% 500 ML 999 ML IV (20:07)
[2023-09-09 20:39] LABS: HCG, Serum Qual Negative (Negative)
[2023-09-09 20:45] LABS: Alanine Aminotransferase 14 U/L (0-33); Albumin Level 4.7 g/dL (3.5-5.2); Alkaline Phosphatase 62 U/L (35-105); Anion Gap 14.5 (5-19); Aspartate Amino Transferase 18 U/L (0-32); Blood Urea Nitrogen 10 mg/dL (6-20); Calcium 9.6 mg/dL (8.5-10.5); Carbon Dioxide 24 mmol/L (22-29); Chloride 102 mmol/L (98-107); Creatinine Clr Calc Pharmacy 94.8728; Globulin 3.3 g/dL (1.3-4.6); Glomerular Filtration Rate 95.2 mL/min (90-130); Glucose 88 mg/dL (65-115); Lipase 32 U/L (13-60); Osmolality Calculated 282 mOsm/kg (285-295); Potassium 3.5 mmol/L (3.5-5.1); Sodium 137 mmol/L (136-145); Total Bilirubin 0.2 mg/dL (0.15-1.2)
--- NOTE | 2023-09-09 20:47 | CTR_ITS ---
PROCEDURE INFORMATION: Exam: CT Abdomen And Pelvis With Contrast Exam date and time: 09/09/2023 8:57 PM Age: 33 years old Clinical indication: Abdominal pain; Generalized; Additional info: Non-localized abd pain TECHNIQUE: Imaging protocol: Computed tomography of the abdomen and pelvis with contrast. Radiation optimization: All CT scans at this facility use at least one of these dose optimization techniques: automated exposure control; mA and/or kV adjustment per patient size (includes targeted exams where dose is matched to clinical indication); or iterative reconstruction. Contrast material: OMNI 350; Contrast volume: 80 ml; Contrast route: INTRAVENOUS (IV); REPORTING DATA: Count of CT and Cardiac NM exams in prior 12 months: This patient has received 0 known CTs and 0 known cardiac nuclear medicine studies in the 12 months prior to the current study. COMPARISON: CT chest abdpel w/*[id number] 04/09/2018 8:31 PM RADIATION DOSE METRICS: Total DLP (mGy-cm): 319 FINDINGS: Liver: Hepatomegaly with the right hepatic lobe measuring 20 cm in length. Heterogeneous attenuation of the liver. Gallbladder and bile ducts: Normal. No calcified stones. No ductal dilation. Pancreas: Normal. No ductal dilation. Spleen: Normal. No splenomegaly. Adrenal glands: Normal. No mass. Kidneys and ureters: Normal. No hydronephrosis. Stomach and bowel: Unremarkable. No obstruction. No mucosal thickening. Appendix: No evidence of appendicitis. Intraperitoneal space: Unremarkable. No free air. No significant fluid collection. Vasculature: Unremarkable. No abdominal aortic aneurysm. Lymph nodes: Unremarkable. No enlarged lymph nodes. Urinary bladder: Unremarkable as visualized. Reproductive: Unremarkable as visualized. Bones/joints: No acute fracture. Soft tissues: Unremarkable. CT/CT abdomen pelvis w con* [id number] IMPRESSION: Hepatomegaly with heterogeneous attenuation of the liver which may reflect patulous hepatic steatosis or potentially sequela of hepatitis in the appropriate clinical setting.
[2023-09-09] MEDS: iohexol 350 mg/mL 500 mL Btl (per mL) IV (21:01)
[2023-09-09 21:20] LABS: Add Urine Microscopic? NO; Charge for UA Resulting for Rev
[2023-09-09 21:22] LABS: Bilirubin Urine Neg (Negative); Blood Urine Neg (Negative); Glucose Urine UA Norm (Normal); Ketones Urine Negative (Negative); Leukocyte Esterase Urine Negative (Negative); Nitrate Urine Negative (Negative); Protein Urine Neg (Negative); Specific Gravity, Urine 1.015 (1.005-1.030); Urine Appearance Clear (CLEAR); Urine Color Yellow (Yellow); Urobilinogen Urine Norm (Negative); pH Urine 5 (5-7)
[2023-09-09 21:38] VITALS: PULSE 58; RESP 18; O2SAT 99
== END 2023-09-09 21:40 | disposition home or self-care (01) ==
PROVIDERS: Emergency Medicine; Emergency Provider Nurse Practitioner Family; PCP Family Medicine
DX: R10.84 Generalized abdominal pain (principal); K58.9 Irritable bowel syndrome, unspecified
CPT/HCPCS: 74177; 80053; 81000; 81003; 83690; 84703; 85025; 96374; 96375; 99285; J2405; J3010; J7040; Q9967

== ENCOUNTER → 2023-09-10 11:30 | Outpatient (BNVA) | payer BC, MEDICAID, SELFPAY | PROVIDERS: PCP Family Medicine; Visit Provider Obstetrics & Gynecology | DX: N93.9 Abnormal uterine and vaginal bleeding, unspecified (principal) | CPT/HCPCS: 83001; 84443; 84702; 85025 ==

== ENCOUNTER → 2023-09-24 13:57 | Outpatient (BNVA) | payer BC, MEDICAID, SELFPAY | PROVIDERS: PCP Family Medicine; Visit Provider Family Medicine | DX: R19.7 Diarrhea, unspecified (principal) | CPT/HCPCS: 86003; 86008 ==

== ENCOUNTER → 2023-12-02 15:30 | Outpatient (BNVA) | payer BC, MEDICAID, SELFPAY | PROVIDERS: PCP Family Medicine; Visit Provider Obstetrics & Gynecology | DX: N64.4 Mastodynia (principal) | CPT/HCPCS: 84146 ==

== ENCOUNTER → 2023-12-09 16:26 | Outpatient (BNVA) | payer BC, MEDICAID, SELFPAY | PROVIDERS: PCP Family Medicine; Visit Provider Nurse Practitioner | DX: R10.9 Unspecified abdominal pain (principal) | CPT/HCPCS: 81000 ==

== ENCOUNTER 2024-02-04 14:03 | Outpatient (CLI) | payer BC, MEDICAID, SELFPAY ==
--- NOTE | 2024-02-04 14:05 | XR_ITS ---
WS: [id number] XR foot RT min 3V* [id number] REASON FOR EXAM: right great toe lynda FINDINGS: No fracture or periosteal reaction. No focal bone lesion. Joint spaces of the forefoot, midfoot, and hindfoot are intact and well preserved. No soft tissue abnormality. XR/XR foot RT min 3V* [id number] IMPRESSION: No significant abnormality is identified. The bone and joints of the great toe demonstrated no abnormality.
== END 2024-02-04 14:04 | disposition home or self-care (01) ==
LOC: RAD 14:04
PROVIDERS: PCP Family Medicine; Visit Provider Family Medicine
DX: M79.674 Pain in right toe(s) (principal)
CPT/HCPCS: 73630; 80053; 84550

== ENCOUNTER → 2024-02-25 11:14 | Outpatient (BNVA) | payer BC, MEDICAID, SELFPAY | PROVIDERS: PCP Family Medicine; Visit Provider Podiatrist Foot & Ankle Surgery | DX: M20.11 Hallux valgus (acquired), right foot; G57.91 Unspecified mononeuropathy of right lower limb | CPT/HCPCS: 73630 ==

== ENCOUNTER → 2024-04-21 15:08 | Outpatient (BNVA) | payer BC, MEDICAID, SELFPAY | PROVIDERS: PCP Family Medicine; Visit Provider Obstetrics & Gynecology | DX: R10.2 Pelvic and perineal pain (principal); N64.52 Nipple discharge | CPT/HCPCS: 84146; 87491; 87591 ==

== ENCOUNTER → 2024-05-19 12:05 | Outpatient (BNVA) | payer BC, MEDICAID, SELFPAY | PROVIDERS: PCP Family Medicine; Visit Provider Obstetrics & Gynecology | DX: E22.1 Hyperprolactinemia (principal) | CPT/HCPCS: 84146 ==

== ENCOUNTER 2024-06-22 15:58 | Outpatient (CLI) | payer BC, MEDICAID, SELFPAY ==
--- NOTE | 2024-06-22 16:00 | US_ITS ---
WS: [id number] ULTRASOUND BREAST RIGHT TECHNIQUE: Ultrasound right breast focused area of concern. CLINICAL INFORMATION: N63.11 - Unspecified lump in the right breast, upper oute... COMPARISON: None. FINDINGS: Ultrasound RIGHT breast area of concern at nipple. Small hypoechoic probably complex cystic lesion me asuring 6 x 6 x 4 mm in the area of concern 9 o'clock position at the nipple. This is technically ind eterminate but probably benign. This could be surgically resected if continued concern. Recommend clinical correlation for draining cyst or infection. US/US breast RT complete [id number] IMPRESSION: See above discussion regarding complex cystic lesion in the nipple BI-RADS 3 probably benign Recommend annual screening mammography age 38
== END 2024-06-22 15:59 | disposition home or self-care (01) ==
LOC: RAD 15:59
PROVIDERS: PCP Family Medicine; Visit Provider Obstetrics & Gynecology
DX: N63.11 Unspecified lump in the right breast, upper outer quadrant (principal); N60.01 Solitary cyst of right breast
CPT/HCPCS: 76641

== ENCOUNTER → 2024-07-12 16:36 | Outpatient (BNVA) | payer BC, MEDICAID, SELFPAY | PROVIDERS: PCP Family Medicine; Visit Provider Family Medicine | DX: Z20.2 Contact with and (suspected) exposure to infections with a predominantly sexual mode of transmission (principal) | CPT/HCPCS: 87491; 87591 ==

== ENCOUNTER 2024-07-14 14:54 | Outpatient (CLI) | payer BC, MEDICAID, SELFPAY ==
--- NOTE | 2024-07-14 14:57 | XR_ITS ---
WS: [id number] XR thoracic spine 3V* [id number] REASON FOR EXAM: back pain FINDINGS: Normal thoracic spine curvatures. No vertebral body abnormality. Intervertebral disc spaces are intact and relatively well preserved. XR/XR thoracic spine 3V* [id number] IMPRESSION: No significant abnormality.
== END 2024-07-14 14:55 | disposition home or self-care (01) ==
LOC: RAD 14:55
PROVIDERS: PCP Family Medicine; Visit Provider Family Medicine
DX: M54.9 Dorsalgia, unspecified (principal)
CPT/HCPCS: 72072

== ENCOUNTER 2024-07-20 14:03 | Emergency (ER) | payer BC, MEDICAID, SELFPAY ==
[2024-07-20 14:49] VITALS: BP 96/55; PULSE 69; RESP 14; TEMP 36.8; O2SAT 99; BMI 20.5
[2024-07-20 15:19] LABS: Basophils # 0.1 10^3/uL (0.0-0.1); Basophils % 0.9 %; Eosinophils # 0.1 10^3/uL (0.0-0.8); Eosinophils % 1.7 %; Hematocrit 34.8 % (36-47); Lymphocytes # 2.9 10^3/uL (0.8-4.8); Lymphocytes % 42.6 %; Mean Corpuscular HGB Conc 32.8 g/dL (30-55); Mean Corpuscular Hemoglobin 31.7 pg (27-33); Mean Corpuscular Volume 96.7 fl (85-98); Mean Platelet Volume 10.5 fL (7.4-10.4); Monocytes # 0.5 10^3/uL (0.2-0.9); Monocytes % 7.7 %; Neutrophils % 46.7 %; Nucleated Red Blood Cells % 0 %; Platelet Count 185 10^3/cmm (157-399); Red Cell Distribution Width 12.4 % (12.1-15.1); White Blood Count 6.86 10^3/uL (3.29-11.43)
[2024-07-20 15:31] LABS: HCG, Serum Qual Negative (Negative)
[2024-07-20 15:41] LABS: Alanine Aminotransferase 11 U/L (0-33); Albumin Level 4.5 g/dL (3.5-5.2); Alkaline Phosphatase 49 U/L (35-105); Anion Gap 10.3 (5-19); Aspartate Amino Transferase 17 U/L (0-32); Blood Urea Nitrogen 14 mg/dL (6-20); Calcium 8.7 mg/dL (8.5-10.5); Carbon Dioxide 26 mmol/L (22-29); Chloride 106 mmol/L (98-107); Creatinine Clr Calc Pharmacy 71.6024; Globulin 2.4 g/dL (1.3-4.6); Glomerular Filtration Rate 70.8 mL/min (90-130); Glucose 93 mg/dL (65-115); Lipase 22 U/L (13-60); Osmolality Calculated 286 mOsm/kg (285-295); Potassium 4.3 mmol/L (3.5-5.1); Sodium 138 mmol/L (136-145); Total Bilirubin 0.3 mg/dL (0.15-1.2); Total Protein 6.9 g/dL (6.6-8.7)
--- NOTE | 2024-07-20 19:02 | ED_ITS ---
HPI - Abdominal Pain 2 General: Chief Complaint: Abdominal Pain Stated Complaint: n/v fever abd pain Time Seen by Provider: 07/20/24 19:01 History of Present Illness: 34-year-old female who presents emergenc y room with right upper quadrant abdominal pain for about 3 weeks now. She has had some nausea but no vomiting. She also has complaints of some back pain. She went to an urgent care and they told her to come to the emergency room. Some nausea but no vomiting. She says she had a fever. Related Data Home Medications Medication Instructions Recorded Confirmed multivitamin 1 tab PO DAILY 02/26/23 07/20/24 carvedilol 6.25 mg tablet 6.25 mg PO BID 07/02/23 07/20/24 Previous Rx's Medication Instructions Recorded ibuprofen 800 mg tablet 800 mg PO TID #90 tabs 09/03/23 omeprazole 20 mg capsule,delayed 20 mg PO DAILY #90 caps 05/12/24 release ondansetron 4 mg disintegrating 4 mg PO Q8H #30 tabs 05/12/24 tablet cabergoline 0.5 mg tablet 0.25 mg (1/2 x 0.5 mg) PO .weekly 05/19/24 hyperprolactenemia, galactorrhea #10 tabs escitalopram oxalate 10 mg tablet 10 mg PO DAILY #60 tabs 06/02/24 (Lexapro) topiramate 25 mg tablet (Topamax) 25 mg PO DAILY #30 tabs 06/02/24 propranolol 10 mg tablet 10 mg PO BID #60 tabs 07/07/24 dexamethasone 6 mg tablet 6 mg PO DAILY 5 days #5 tabs 07/20/24 diclofenac sodium 50 mg 50 mg PO BID PRN pain #14 tabs 07/20/24 tablet,delayed release dicyclomine 20 mg tablet 20 mg PO TID PRN abdominal pain 07/20/24 #30 tabs ondansetron 8 mg disintegrating 8 mg PO Q6H #14 tabs 07/20/24 tablet sucralfate 1 gram tablet (Carafate) 1 g PO TID 4 weeks #84 tabs 07/20/24 Allergies Allergy/AdvReac Type Severity Reaction Status Date / Time kiwi Allergy Severe throat Verified 07/20/24 14:49 swelling naproxen Allergy Intermediate ALGY-Hives Verified 07/20/24 14:49 hydrocodone Allergy rash, hives Verified 07/20/24 14:49 Iodinated Contrast Media Allergy Unknown Verified 07/20/24 14:49 latex Allergy rash, hives Verified 07/20/24 14:49 nitrofurantoin Allergy rash, hives Verified 07/20/24 14:49 [From Macrobid] promethazine [From Phenergan] Allergy salas my Verified 07/20/24 14:49 body tramadol Allergy rash, hives Verified 07/20/24 14:49 Review of Systems 2 Narrative: Constitutional symptoms: Negative except as documented in HPI. Skin symptoms: Negative except as documented in HPI. Eye symptoms: Negative except as documented in HPI. ENMT symptoms: Negative except as documented in HPI. Respiratory symptoms: Negative except as documented in HPI. Cardiovascular symptoms: Negative except as documented in HPI. Gastrointestinal symptoms: Negative except as documented in HPI. Genitourinary symptoms: Negative except as documented in HPI. Musculoskeletal symptoms: Negative except as documented in HPI. Neurologic symptoms: Negative except as documented in HPI. Psychiatric symptoms: Negative except as documented in HPI. Endocrine symptoms: Negative except as documented in HPI. PFSH ED 2 PFSH: Medical History Moderate major depression Chronic migraine GERD (gastroesophageal reflux disease) History of Holter monitoring 04/16/[address] Sinus arrhythmia Gonorrhea contact, treated No pertinent past medical history neghx:htn,dm,thyroid,dvt/pe PCP: Antonio Anxiety and depression Memory loss due to medical condition Gastroparesis Reports is idiopathic. Has been self treating associated nausea with marijuana. Palpitations Due to mitral valve prolapse. On carvedilol IBS (irritable bowel syndrome) more diarrhea Mitral valve prolapse Surgical History H/O laparoscopy (~2017) Albino-- for pelvic pain; no endometriosis, just IBS related History of tonsillectomy (~1996) H/O lumpectomy Left breast lumpectomy - benign per patient at age 15. Family History Mother Hypertension Hyperlipidemia Grandmother Stroke Paternal grandmother Breast cancer Paternal great grandmother Sister Thyroid disease Other Anxiety and depression Denies family history of Colon cancer Ovarian cancer Diabetes Arrhythmia Heart disease Hypercholesteremia Uterine cancer Social History Smoking and tobacco/nicotine status: unknown if used tobacco/nicotine Alcohol intake: never Substance/Drug Use: never Female Reproductive History: Para: 3 Physical Exam 2 Narrative: EXAM NARRATIVE: General: Alert, no acute distress. Skin: Warm, dry. Head: Normocephalic, atraumatic. Neck: Supple, trachea midline. Eye: Extraocular movements are intact. Ears, nose, mouth and throat: mucosa moist. Cardiovascular: Regular, Normal peripheral perfusion. Respiratory: Lungs are clear to auscultation, respirations are non-labored, breath sounds are equal, Symmetrical chest wall expansion. Gastrointestinal: Soft, right upper quadrant tenderness, Non distended Musculoskeletal: Normal ROM, no deformity. Neurological: Alert and oriented, No focal neurological deficit observed. Psychiatric: Cooperative, appropriate mood & affect. Course 2 Vital Signs: Vital signs: Vital Signs Temperature 98.2 F 07/20/24 14:49 Pulse Rate 67 07/20/24 19:40 Respiratory Rate 14 07/20/24 14:49 Blood Pressure 95/50 07/20/24 19:40 Pulse Oximetry 99 07/20/24 19:40 MDM - Abdominal Pain Medical Decision Making Differential diagnosis for patient presenting with right upper quadrant abdominal pain including but not limited to and based on the above HPI, review of systems and physical exam: Cholelithiasis or cholecystitis. Hepatitis. Diverticulitis. Constipation. Ureterolithiasis. Urinary tract infection. Appendicitis. colitis. small bowel obstruction. crohn's flare. pancreatitis. gastritis. peptic ulcer. Aortic disection. Workup including imaging and lab work replaced based on the above differential, history and exam to evaluate differential diagnosis Lab Review: Laboratory results were reviewed and interpreted by myself the emergency room physician. Lab work is unremarkable. No leukocytosis. No anemia. No renal failure. Ultrasound was negative for gallbladder pathology. This was reviewed and interpreted by myself the emergency room physician. I also reviewed the radiology report. I reviewed the patient's medical record. Reexamination: Patient remained stable. No increased work of breathing. No altered mental status. No focal motor deficits. Assessment and plan: Abdominal pain/back pain ? IM Decadron in the emergency room - Discharged home - Discussed plan with patient. Answered any questions. - Evaluation and treatment of this problem were appropriate in the emergency setting. Lab Data 07/20/24 15:00 07/20/24 15:00 Labs/Radiology: Radiology Impressions Gallbladder Ultrasound 07/20/24 19:05 IMPRESSION: No acute sonographic findings. Laboratory Results WBC 6.86 10^3/uL (3.29-11.43) 07/20/24 15:00 RBC 3.60 10^6/uL (3.85-5.65) L 07/20/24 15:00 Hgb 11.40 g/dL (11.27-16.99) 07/20/24 15:00 Hct 34.8 % (36-47) L 07/20/24 15:00 MCV 96.7 fl (85-98) 07/20/24 15:00 MCH 31.7 pg (27-33) 07/20/24 15:00 MCHC 32.8 g/dL (30-55) 07/20/24 15:00 RDW 12.4 % (12.1-15.1) 07/20/24 15:00 Plt Count 185 10^3/cmm (157-399) 07/20/24 15:00 MPV 10.5 fL (7.4-10.4) H 07/20/24 15:00 Neut % (Auto) 46.7 % 07/20/24 15:00 Lymph % (Auto) 42.6 % 07/20/24 15:00 [place] % (Auto) 7.7 % 07/20/24 15:00 Eos % (Auto) 1.7 % 07/20/24 15:00 Baso % (Auto) 0.9 % 07/20/24 15:00 Neut # (Auto) 3.20 10^3/uL (1.8-7.7) 07/20/24 15:00 Lymph # (Auto) 2.9 10^3/uL (0.8-4.8) 07/20/24 15:00 [place] # (Auto) 0.5 10^3/uL (0.2-0.9) 07/20/24 15:00 Eos # (Auto) 0.1 10^3/uL (0.0-0.8) 07/20/24 15:00 Baso # (Auto) 0.1 10^3/uL (0.0-0.1) 07/20/24 15:00 Nucleated RBC % (auto) 0 % 07/20/24 15:00 Nucleated RBCs # 0.0 /100WBC 07/20/24 15:00 Sodium 138 mmol/L (136-145) 07/20/24 15:00 Potassium 4.3 mmol/L (3.5-5.1) 07/20/24 15:00 Chloride 106 mmol/L (98-107) 07/20/24 15:00 Carbon Dioxide 26 mmol/L (22-29) 07/20/24 15:00 Anion Gap 10.3 (5-19) 07/20/24 15:00 BUN 14 mg/dL (6-20) 07/20/24 15:00 Creatinine 0.9 mg/dL (0.5-0.9) 07/20/24 15:00 GFR Calculation 70.8 mL/min (90-130) L 07/20/24 15:00 Glucose 93 mg/dL (65-115) 07/20/24 15:00 Calculated Osmolality 286 mOsm/kg (285-295) 07/20/24 15:00 Calcium 8.7 mg/dL (8.5-10.5) 07/20/24 15:00 Total Bilirubin 0.3 mg/dL (0.15-1.2) 07/20/24 15:00 AST 17 U/L (0-32) 07/20/24 15:00 ALT 11 U/L (0-33) 07/20/24 15:00 Alkaline Phosphatase 49 U/L (35-105) 07/20/24 15:00 Total Protein 6.9 g/dL (6.6-8.7) 07/20/24 15:00 Albumin 4.5 g/dL (3.5-5.2) 07/20/24 15:00 Globulin 2.4 g/dL (1.3-4.6) 07/20/24 15:00 Lipase 22 U/L (13-60) 07/20/24 15:00 HCG, Qual Negative (Negative) 07/20/24 15:00 Urine Color Yellow (Yellow) 07/20/24 19:48 Urine Appearance Clear (CLEAR) 07/20/24 19:48 Urine pH 6.0 (5-7) 07/20/24 19:48 Ur Specific [place] 1.012 (1.005-1.030) 07/20/24 19:48 Urine Protein Negative (Negative) 07/20/24 19:48 Urine Glucose (UA) Negative (Normal) 07/20/24 19:48 Urine Ketones Trace (Negative) 07/20/24 19:48 Urine Blood Negative (Negative) 07/20/24 19:48 Urine Nitrate Negative (Negative) 07/20/24 19:48 Urine Bilirubin Negative (Negative) 07/20/24 19:48 Urine Urobilinogen 1.0 mg/dL (Negative) 07/20/24 19:48 Ur Leukocyte Esterase Negative (Negative) 07/20/24 19:48 Urine RBC 0-2 /hpf (0-2) 07/20/24 19:48 Urine WBC 0-5 /hpf (0-5) 07/20/24 19:48 Ur Squamous Epith Cells 0-5 /hpf (0-5) 07/20/24 19:48 Amorphous Sediment Not Reportable 07/20/24 19:48 Urine Bacteria None seen /hpf (NONE) 07/20/24 19:48 Hyaline Casts 0-4 /lpf H 07/20/24 19:48 All radiology interpretation(s) finalized by discharge Discharge Plan Discharge Patient Disposition: Home Clinical Impression: Abdominal pain, Back pain Condition: Stable Prescriptions: New sucralfate [Carafate] 1 gram tablet 1 g PO TID 28 Days Qty: 84 0RF Rx Instructions: with meals dexamethasone 6 mg tablet 6 mg PO DAILY 5 Days Qty: 5 0RF diclofenac sodium 50 mg tablet,delayed release (DR/EC) 50 mg PO BID PRN (Reason: pain) Qty: 14 0RF ondansetron 8 mg tablet,disintegrating 8 mg PO Q6H Qty: 14 0RF Rx Instructions: Take 1/2-1 tab every 6 hours as needed for nausea and vomiting No Action dicyclomine 20 mg tablet 20 mg PO TID PRN (Reason: abdominal pain) Qty: 30 0RF carvedilol 6.25 mg tablet 6.25 mg PO BID Rx Instructions: must administer with a meal/food multivitamin Tablet 1 tab PO DAILY ibuprofen 800 mg tablet 800 mg PO TID Qty: 90 0RF topiramate [Topamax] 25 mg tablet 25 mg PO DAILY Qty: 30 0RF escitalopram oxalate [Lexapro] 10 mg tablet 10 mg PO DAILY Qty: 60 1RF cabergoline 0.5 mg tablet 0.25 mg PO .weekly Qty: 10 0RF propranolol 10 mg tablet 10 mg PO BID Qty: 60 4RF ondansetron 4 mg tablet,disintegrating 4 mg PO Q8H Qty: 30 1RF omeprazole 20 mg capsule,delayed release(DR/EC) 20 mg PO DAILY Qty: 90 1RF Discharge Orders: Discharge ED (Routine); Ordered 07/20/24 Ordered By: Altagracia Alvarez Referrals: Dimas Jaquez MD [Primary Care Provider] - Discharge Diet: Usual diet Discharge Activity: Increase activity as tolerated Patient Instructions: Abdominal Pain (ED) Activity Restrictions/Additional Instructions: Do not take ibuprofen while taking diclofenac Thank you for choosing [facility] for your healthcare needs today. Please realize this is an emergency room and that we are providing you with a medical screening exam and this may not be complete and all inclusive of all the testing and or work up that you may need to determine your ailment or severity of your illness. You have been screened and evaluated and felt safe for discharge. Health conditions do change or evolve sometimes and as such it is important that you follow up with your Primary Doctor to be re checked, 3-5 days is a general good time frame for follow up. You are always welcome to return to the ED for re assessment if your symptoms are worsening or you have new concerns Coding Level of Care Code ED [facility]ustin V[facility]
--- NOTE | 2024-07-20 19:05 | USR_ITS ---
PROCEDURE INFORMATION: Exam: US Abdomen, Limited; Right Upper Quadrant Exam date and time: 07/20/2024 7:12 PM Age: 34 years old Clinical indication: Abdominal pain; Epigastric; Additional info: Right upper quadrant pain, concern for cholecystitis TECHNIQUE: Imaging protocol: Real time ultrasound of the abdomen with image documentation. Limited exam focused on the right upper quadrant. COMPARISON: US abdomen complete* [id number] 04/28/2020 1:45 PM FINDINGS: Liver: Unremarkable. Gallbladder: No gallstones. No gallbladder wall thickening or pericholecystic fluid. Negative sonographic Tejeda's sign, as per the performing copper etcher. Biliary ducts: No stones. No ductal dilatation. Pancreas: Unremarkable as visualized. Right kidney: No mass. No definite stones. No hydronephrosis. US/US gall bladder [id number] IMPRESSION: No acute sonographic findings.
[2024-07-20 19:40] VITALS: BP 95/50; PULSE 67; O2SAT 99
[2024-07-20 19:56] LABS: Bilirubin Urine Negative (Negative); Blood Urine Negative (Negative); Glucose Urine UA Negative (Normal); Ketones Urine Trace (Negative); Leukocyte Esterase Urine Negative (Negative); Nitrate Urine Negative (Negative); Protein Urine Negative (Negative); Specific Gravity, Urine 1.012 (1.005-1.030); Urine Appearance Clear (CLEAR); Urine Color Yellow (Yellow)
[2024-07-20 19:59] LABS: Add Urine Microscopic? YES; Bacteria Urine None Seen /hpf; Hyaline Casts Urine 0-4 /lpf; RBC Urine 0-2 /hpf (0-2); Squamous Epithelial Cell Urine 0-5 /hpf (0-5); WBC Urine 0-5 /hpf (0-5)
[2024-07-20 20:35] VITALS: BP 103/56; PULSE 50; PULSE 51; O2SAT 91; O2SAT 99
== END 2024-07-20 20:30 | disposition home or self-care (01) ==
PROVIDERS: Emergency Medicine; Emergency Provider Emergency Medicine; PCP Family Medicine
DX: R10.11 Right upper quadrant pain (principal); M54.9 Dorsalgia, unspecified
CPT/HCPCS: 36415; 76705; 80053; 81001; 83690; 84703; 85025; 99284

== ENCOUNTER → 2024-08-04 09:31 | Outpatient (BNVA) | payer BC, MEDICAID, SELFPAY | PROVIDERS: PCP Family Medicine; Visit Provider Obstetrics & Gynecology | DX: N64.3 Galactorrhea not associated with childbirth (principal) | CPT/HCPCS: 84146; 84443 ==

== ENCOUNTER 2024-08-09 06:30 | Day surgery (SDC) | payer BC, MEDICAID, SELFPAY ==
[2024-08-09] VITALS (10 sets, daily range): BP systolic 102–125; BP diastolic 48–80; PULSE 47–69; RESP 8–17; TEMP 36.1–36.8; O2SAT 95–98; BMI 45.6
[2024-08-09] MEDS: sodium chloride 0.9% 1,000 ML 30 ML IV (07:00)
--- NOTE | 2024-08-09 07:11 | W.PM.OPSUD ---
Surgery/Procedure H&P Update DATE OF PROCEDURE: August 09, 2024 DATE H&P PERFORMED: 07/27/24 H&P UPDATE INFORMATION: I have reviewed H&P completed within last 30 days, I have examined patient prior to procedure and No changes to prior documentation PLANNED PROCEDURE: Operation Date: 08/09/24 08:15 Proposed Procedures p Excision of Breast Mass Excision Breast Mass(Right) - Damien Reno MD
[2024-08-09 08:35] LABS: OR HCG Qualitative Urine Negative (Negative)
[2024-08-09] MEDS: ceFAZolin 2,000 mg SDV 2000 MG IVP (08:38)
--- NOTE | 2024-08-09 08:38 | ANES.PREANE2 ---
Pre-Anesthetic Assessment Height/Weight: Height 1.57 m Weight 113 kg Temp Pulse Resp BP Pulse Ox O2 Del Method 98.2 F 69 17 102/48 97 Room Air 08/09/24 06:49 08/09/24 06:49 08/09/24 06:49 08/09/24 06:49 08/09/24 06:49 08/09/24 06:52 Operation Date: 08/09/24 08:15 Proposed Procedures p Excision of Breast Mass Excision Breast Mass(Right) - Damien Reno MD Familial anesthetic complications: None Was Beta Jamar taken within 24 hours: N/A Was Clonidine taken within 24 hours: N/A Last intake: Intake Last Liquid Date 08/08/24 Last Liquid Time 21:00 Last Solid Date 08/08/24 Last Solid Time 17:00 Social No alcohol and No tobacco Smokes marijuana Exam alert, oriented x 3, clear to auscultation bilaterally and regular rate & rhythm Airway Mallampati: Class I Dentition: other (no teeth) GI Gastroesophageal Reflux Disease Metabolic hyperprolactinemia Anesthetic Plan ASA status: 2 Anesthesia: General Risk of > 500 ml blood loss (7ml/kg in children): No Medications/Allergies Home Medications Medication Instructions Recorded Confirmed Last Taken Type multivitamin 1 tab PO DAILY 02/26/23 08/08/24 08/07/24 History carvedilol 6.25 mg tablet 6.25 mg PO BID 07/02/23 08/09/24 08/09/24 06:00 History ibuprofen 800 mg tablet 800 mg PO TID #90 tabs 09/03/23 08/08/24 08/05/24 Rx omeprazole 20 mg capsule,delayed 20 mg PO DAILY #90 caps 05/12/24 08/08/24 08/08/24 Rx release ondansetron 4 mg disintegrating 4 mg PO Q8H #30 tabs 05/12/24 08/09/24 08/09/24 04:45 Rx tablet cabergoline 0.5 mg tablet 0.25 mg (1/2 x 0.5 mg) PO .weekly 05/19/24 08/08/24 08/04/24 Rx hyperprolactenemia, galactorrhea #10 tabs diclofenac sodium 50 mg 50 mg PO BID PRN pain #14 tabs 07/20/24 08/08/24 08/08/24 Rx tablet,delayed release dicyclomine 20 mg tablet 20 mg PO TID PRN abdominal pain 07/20/24 08/08/24 08/08/24 Rx #30 tabs ondansetron 8 mg disintegrating 8 mg PO Q6H #14 tabs 07/20/24 08/09/24 Unknown Rx tablet Allergies Allergy/AdvReac Type Severity Reaction Status Date / Time kiwi Allergy Severe throat Verified 08/09/24 06:44 swelling naproxen Allergy Intermediate ALGY-Hives Verified 08/09/24 06:44 Beef Containing Products Allergy ALGY-Rash Verified 08/09/24 06:44 hydrocodone Allergy rash, hives Verified 08/09/24 06:44 Iodinated Contrast Media Allergy Unknown Verified 08/09/24 06:44 latex Allergy rash, hives Verified 08/09/24 06:44 nitrofurantoin Allergy rash, hives Verified 08/09/24 06:44 [From Macrobid] promethazine [From Phenergan] Allergy salas my Verified 08/09/24 06:44 body tramadol Allergy rash, hives Verified 08/09/24 06:44 Current Medications Generic Name Dose Route Start Last Admin Trade Name Freq PRN Reason Stop Dose Admin Sodium Chloride 1,000 mls @ 30 mls/hr 08/09/24 06:45 08/09/24 07:00 Sodium Chloride 0.9% IV 08/10/24 06:44 30 mls/hr .Q24H ANJELICA Administration PFSH Anesthesia Medical History Moderate major depression Chronic migraine GERD (gastroesophageal reflux disease) History of Holter monitoring 04/16/[address] Sinus arrhythmia Gonorrhea contact, treated No pertinent past medical history neghx:htn,dm,thyroid,dvt/pe PCP: Antonio Anxiety and depression Memory loss due to medical condition Gastroparesis Reports is idiopathic. Has been self treating associated nausea with marijuana. Palpitations Due to mitral valve prolapse. On carvedilol IBS (irritable bowel syndrome) more diarrhea Mitral valve prolapse Surgical History H/O laparoscopy (~2017) Albino-- for pelvic pain; no endometriosis, just IBS related History of tonsillectomy (~1996) H/O lumpectomy Left breast lumpectomy - benign per patient at age 15. Family History Mother Hypertension Hyperlipidemia Grandmother Stroke Paternal grandmother Breast cancer Paternal great grandmother Sister Thyroid disease Other Anxiety and depression Denies family history of Colon cancer Ovarian cancer Diabetes Arrhythmia Heart disease Hypercholesteremia Uterine cancer Social History Smoking and tobacco/nicotine status: former use of tobacco/nicotine Alcohol intake: never Substance/Drug Use: never Female Reproductive History Date of last menstrual period: 08/06/24 Para: 3 Data Anesthesia Cardiac Studies: No Data to Display
[2024-08-09] MEDS: BUPivacaine 0.5% INJ 10 mL INJECTION (09:00)
--- NOTE | 2024-08-09 09:10 | P.OP_ITS ---
Date of Procedure: August 09, 2024 Surgeon: Dr. Reno Construction Safety Consultant(s): N/A Procedure(s) performed: Right breast nipple cyst excision Findings of the procedure(s): Right breast milk cyst on nipple Estimated blood loss: Less than 5 cc Specimen(s) removed: Right breast nipple cyst sent to pathology Post-operative diagnosis: Right breast milk cyst Pathology: Right breast milk cyst Implant(s): N/A Anesthesia: General Anesthesia Complications: N/A Brief history/preop diagnosis: 34-year-old female who presents with a cyst on the right nipple. Discussed risk and benefits and patient decided to get cyst excised. Full operative report: After being seen in the preop area patient was brought into the operating room. Patient was laid supine. SCDs were on and functional. Preoperative Ancef 2 g was administered. The right chest was prepped and draped in the usual sterile fashion. An elliptical incision over the right nipple cyst was carried out. Using electrocautery the cyst was dissected out. Specimen was sent to pathology. Adequate hemostasis was achieved using electrocautery. The skin was closed using 4-0 strata fix and surgical glue. A dry gauze dressing was applied on top. Patient woke up from anesthesia without any complications and was transferred to PACU. Condition: Stable Dispostion: Home
--- NOTE | 2024-08-09 10:30 | ANE.PACU2 ---
Inpatient post-anesthesia follow up: Airway intact: Yes Vital signs: Temperature 97.8 F Pulse Rate 50 Respiratory Rate 17 Blood Pressure 117/68 Pulse Oximetry 98 Oxygen Delivery Me thod Room Air Oxygen Flow Rate 8 Fraction of Inspir ed Oxygen Hydration adequate: Yes Nausea and vomiting: No Pain level: 1 Mental status: Baseline
== END 2024-08-09 10:34 | disposition home or self-care (01) ==
PROVIDERS: Anesthesiology; PCP Family Medicine; Visit Provider Student in an Organized Health Care Education/Training Program
PROC: (CPT 19120; principal; 2024-08-09 07:55)
DX: N60.01 Solitary cyst of right breast (principal); K21.9 Gastro-esophageal reflux disease without esophagitis; Z87.891 Personal history of nicotine dependence
CPT/HCPCS: 19120; 81025; 88304; J0690; J1100; J2250; J2405; J2704; J3010; J3490; J7030

== ENCOUNTER → 2024-09-13 12:38 | Outpatient (BNVA) | payer BC, MEDICAID, SELFPAY | PROVIDERS: PCP Family Medicine; Visit Provider Nurse Practitioner Women's Health | DX: R87.610 Atypical squamous cells of undetermined significance on cytologic smear of cervix (ASC-US) (principal); B37.9 Candidiasis, unspecified | CPT/HCPCS: 87086; 87624 ==

== ENCOUNTER → 2024-11-04 17:34 | Outpatient (BNVA) | payer BC, SELFPAY | PROVIDERS: PCP Family Medicine; Visit Provider Emergency Medicine | DX: N89.8 Other specified noninflammatory disorders of vagina (principal) | CPT/HCPCS: 87491; 87591; 87661 ==

== ENCOUNTER 2024-11-07 12:04 | Outpatient (CLI) | payer BC, MEDICAID, SELFPAY ==
--- NOTE | 2024-11-07 12:15 | MR_ITS ---
WS: [id number] MRI THORACIC SPINE WITHOUT CONTRAST TECHNIQUE: Sagittal T1, T2 and STIR imaging. Axial T2 imaging. Noncontrast imaging obtained. CLINICAL INFORMATION: spinous process tenderness with radiation of pain COMPARISON: None. FINDINGS: Mild thoracic curve. Mild thoracic kyphosis. No acute compression fractures. No high-grade central canal stenosis. Mild facet arthropathy lower thoracic spine. No significant disc extrusions or protrusions. Minimal annular bulging T6-T8. Normal caliber descending thoracic aorta. MR/MR thoracic spin wo con* [id number] IMPRESSION: 1. No acute thoracic spine findings.
== END 2024-11-07 12:05 | disposition home or self-care (01) ==
PROVIDERS: PCP Family Medicine; Visit Provider Family Medicine
DX: M51.34 Other intervertebral disc degeneration, thoracic region (principal); M43.8X4 Other specified deforming dorsopathies, thoracic region; M40.294 Other kyphosis, thoracic region; M47.894 Other spondylosis, thoracic region
CPT/HCPCS: 72146

== ENCOUNTER → 2024-11-30 13:02 | Outpatient (BNVA) | payer BC, MEDICAID, SELFPAY | PROVIDERS: PCP Family Medicine; Visit Provider Obstetrics & Gynecology | DX: R87.619 Unspecified abnormal cytological findings in specimens from cervix uteri (principal) | CPT/HCPCS: 81025 ==

== ENCOUNTER 2025-01-29 13:56 | Emergency (ER) | payer OTHER, BC, MEDICAID, SELFPAY ==
[2025-01-29 14:15] VITALS: BP 98/55; PULSE 90; RESP 18; TEMP 36.7; O2SAT 98; BMI 21.4
--- NOTE | 2025-01-29 14:54 | ED_ITS ---
HPI - Extremity Problem General: Chief complaint: Extremity Injury, Upper Stated complaint: R arm and shoulder injury and pain Time Seen by Provider: 01/29/25 14:27 Source: patient Mode of arrival: ambulatory Limitations: no limitations History of Present Illness: Patient is a 34-year-old female presents to ED today with complaint of right shoulder pain. Patient states this has been an ongoing intermittent problem starting approximately 2 years ago after a Worker's Comp. injury. She has had multiple issues with the right arm following this incident. She states she has had surgery on her ulnar nerve and elbow. She states intermittently she will have flares of right elbow pain. No new injury or trauma. Patient states she works with [employer] for work. She is not complaining of numbness, tingling, loss of sensation to the extremity. Has not noticed any color or temperature changes. Patient states she is 10 weeks . She has not established with OB care here yet. She has followed up with Worker's Comp. for the right arm issue since the accident. She states she has an upcoming appointment next month for further evaluation on her shoulder and possible MRI. MD Complaint: joint pain Onset (ago): year(s) Pain Consistency: intermittent Location: right and upper extremity (shoulder) Radiation: none Relieving factors: nothing Exacerbating factors: range of motion Associated symptoms: Reports no associated symptoms; Deny chest pain Context: other (injury 2 years ago) Related Data Home Medications ?Medication ?Instructions ?Recorded ?Confirmed docosahexaenoic acid 200 mg mg PO 01/29/25 01/29/25 capsule ( DHA) labetalol 100 mg tablet mg PO 01/29/25 01/29/25 Previous Rx's ?Medication ?Instructions ?Recorded ondansetron 8 mg disintegrating 8 mg PO Q6H #14 tabs 1 tablet valacyclovir 500 mg tablet 500 mg PO DAILY #90 tabs omeprazole 20 mg capsule,delayed 20 mg PO DAILY #90 ca ps 12/25/24 release Allergies Allergy/AdvReac Type Severity Reaction Status Date / Time kiwi Allergy Severe throat Verified 01/29/25 14:23 swelling naproxen Allergy Intermediate ALGY-Hives Verified 01/29/25 14:23 Beef Containing Products Allergy ALGY-Rash Verified 01/29/25 14:23 hydrocodone Allergy rash, hives Verified 01/29/25 14:23 Iodinated Contrast Media Allergy Unknown Verified 01/29/25 14:23 latex Allergy rash, hives Verified 01/29/25 14:23 nitrofurantoin (From Allergy rash, hives Verified 01/29/25 14:23 Macrobid) promethazine (From Phenergan) Allergy salas my Verified 01/29/25 14:23 body tramadol Allergy rash, hives Verified 01/29/25 14:23 Review of Systems Card: Denies: chest pain Resp: Denies: dyspnea Musc: Reports: joint pain (R shoulder) and limited range of motion (R shoulder); Denies: neck pain, extremity pain, extremity swelling, joint swelling, joint r edness, joint warmth or muscle weakness Neuro: Denies: numbness in extremities, weakness in extremities or sensory changes PFSH ED PFSH: Medical History Pap smear abnormality of anus with ASC-US Moderate major depression Chronic migraine GERD (gastroesophageal reflux disease) History of Holter monitoring 04/16/[address] Sinus arrhythmia Gonorrhea contact, treated No pertinent past medical history neghx:htn,dm,thyroid,dvt/pe PCP: Antonio Anxiety and depression Memory loss due to medical condition Gastroparesis Reports is idiopathic. Has been self treating associated nausea with marijuana. Palpitations Due to mitral valve prolapse. On carvedilol IBS (irritable bowel syndrome) more diarrhea Mitral valve prolapse Surgical History History of esophagogastroduodenoscopy (EGD) History of colonoscopy H/O laparoscopy (~2017) Albino-- for pelvic pain; no endometriosis, just IBS related History of tonsillectomy (~1996) H/O lumpectomy Left breast lumpectomy - benign per patient at age 15. Family History Mother Hypertension Hyperlipidemia Grandmother Stroke Paternal grandmother Breast cancer Paternal great grandmother Sister Thyroid disease Other Anxiety and depression Denies family history of Colon cancer Ovarian cancer Diabetes Arrhythmia Heart disease Hypercholesteremia Uterine cancer Social History Smoking and tobacco/nicotine status: former use of tobacco/nicotine Alcohol intake: never Substance/Drug Use: never Female Reproductive History: Para: 3 Physical Exam Const: COMMON NORMALS: no acute distress, average body habitus, patient oriented x3, no limitations, healthy appearing, alert and well nourished Neck/C-Spine: COMMON NORMALS: full ROM GENERAL: Yes normal visual inspection CERVICAL SPINE: No Cervical spine tenderness Back/Pelvis: COMMON NORMALS: thoracic and lumbar spine normal to inspection and no thoracic nor lumbar tenderness Extremity: COMMON NORMALS: capillary refill normal and no joint enlargement GENERAL: Yes normal exam except as noted RIGHT UPPER EXTREMITY: Yes shoulder joint (TTP with palpation; no bony deformities noted) Right shoulder: Yes Right shoulder joint ROM exam (limited due to discomfort) and Yes Right shoulder joint neurovascular exam (normal) Neuro: COMMON NORMALS: patient oriented x3, moves all extremities, no focal motor deficits and no sensory deficits noted SENSORIUM/ORIENTATION: Yes alert Skin: COMMON NORMALS: no rashes or lesions noted GENERAL SKIN EXAM: no rashes or lesions noted Course Vital Signs: Vital signs: Vital Signs Temperature 98.0 F 01/29/25 14:15 Pulse Rate 90 01/29/25 14:15 Respiratory Rate 18 01/29/25 14:15 Blood Pressure 98/55 01/29/25 14:15 Pulse Oximetry 98 01/29/25 14:15 Oxygen Delivery Me thod Room Air 01/29/25 14:15 MDM - Extremity (Nontraumatic) Medical Decision Making Patient here for acute on chronic right shoulder pain. She has had intermittent issues with this shoulder ever since a Worker's Comp. injury 2 years ago. Treatment is complicated as she is approximately 10 weeks . She has listed allergies to naproxen, tramadol, hydrocodone. She was given one-time doses of IM dexamethasone and toradol here. Patient will be allowed discharge. Will place case management referral to get her set up with a primary care provider as well as an OB provider for established OB care. Recommend she continue upcoming appointment in February for further evaluation of the shoulder pain. Medical Records I reviewed the patient's medical records. No radiology studies performed this visit Discharge Plan Discharge Patient Disposition: Home Clinical Impression: Right shoulder pain Qualifiers: Chronicity: chronic Qualified Code(s): M25.511 - Pain in right shoulder Condition: Stable Prescriptions: No Action valacyclovir 500 mg tablet 500 mg PO DAILY Qty: 90 1RF labetalol 100 mg tablet PO DHA 200 mg capsule PO omeprazole 20 mg capsule,delayed release(DR/EC) 20 mg PO DAILY Qty: 90 1RF ondansetron 8 mg tablet,disintegrating 8 mg PO Q6H Qty: 14 0RF Rx Instructions: Take 1/2-1 tab every 6 hours as needed for nausea and vomiting Discharge Orders: Discharge ED (Routine); Ordered 01/29/25 Ordered By: Cora Grant Referrals: Dimas Jaquez MD [Primary Care Provider] - Activity Restrictions/Additional Instructions: As we discussed, we are limited on treatment options given your current . You were given one-time doses of IM Toradol and steroids here in the emergency department. We will have case management work on getting you set up with a primary care provider as well as an OB provider to establish OB care. Continue to follow-up through your Worker's Comp. Stand Alone Forms: Work/School Release Print Language: Taiwanese Coding Level of Care Code ED Senior Staff Psychologist for Agustin Vega
[2025-01-29] MEDS: dexamethasone 10 mg/mL INJ 6 MG IM (15:36)
[2025-01-29] MEDS: ketorolac 30 mg/mL INJ IM (15:36)
--- NOTE | 2025-01-29 16:31 | DCPLANNER ---
lynda youssef for er f/u and womens health to establish OB
== END 2025-01-29 15:44 | disposition home or self-care (01) ==
PROVIDERS: Emergency Provider Physician Assistant; PCP Family Medicine
DX: M25.511 Pain in right shoulder (principal); Z87.891 Personal history of nicotine dependence
CPT/HCPCS: 96372; 99284; J1100; J1885

== ENCOUNTER → 2025-02-02 07:43 | Outpatient (BNVA) | payer OTHER, BC, MEDICAID, SELFPAY | PROVIDERS: PCP Family Medicine; Visit Provider Nurse Practitioner Women's Health | DX: N91.2 Amenorrhea, unspecified (principal) | CPT/HCPCS: 81025 ==

== ENCOUNTER 2025-02-08 16:56 | Emergency (ER) | payer OTHER, BC, MEDICAID, SELFPAY ==
[2025-02-08 16:59] VITALS: BP 96/61; PULSE 80; RESP 17; TEMP 36.8; O2SAT 100; BMI 21.4
[2025-02-08 19:35] LABS: Basophils # 0.1 10^3/uL (0.0-0.1); Basophils % 0.9 %; Eosinophils # 0.3 10^3/uL (0.0-0.8); Eosinophils % 2.4 %; Lymphocytes # 3.4 10^3/uL (0.8-4.8); Lymphocytes % 32.2 %; Mean Corpuscular HGB Conc 33.1 g/dL (30-55); Mean Corpuscular Hemoglobin 32.5 pg (27-33); Mean Corpuscular Volume 98.2 fl (85-98); Mean Platelet Volume 9.7 fL (7.4-10.4); Monocytes # 0.7 10^3/uL (0.2-0.9); Monocytes % 6.8 %; Neutrophils # 6.05 10^3/uL (1.8-7.7); Neutrophils % 57.1 %; Nucleated Red Blood Cells % 0 %; Platelet Count 231 10^3/cmm (157-399); Red Blood Count 3.26 10^6/uL (3.85-5.65); Red Cell Distribution Width 13.4 % (12.1-15.1); White Blood Count 10.58 10^3/uL (3.29-11.43)
[2025-02-08 19:52] LABS: HCG, Serum Qual Positive (Negative)
[2025-02-08 19:56] LABS: Alanine Aminotransferase 11 U/L (0-33); Albumin Level 4.4 g/dL (3.5-5.2); Alkaline Phosphatase 43 U/L (35-105); Anion Gap 16.4 (5-19); Aspartate Amino Transferase 13 U/L (0-32); Blood Urea Nitrogen 9 mg/dL (6-20); Calcium 9.3 mg/dL (8.5-10.5); Carbon Dioxide 22 mmol/L (22-29); Chloride 104 mmol/L (98-107); Creatinine Clr Calc Pharmacy 104.9504; Globulin 2.7 g/dL (1.3-4.6); Glomerular Filtration Rate 113.1 mL/min (90-130); Glucose 82 mg/dL (65-115); Osmolality Calculated 284 mOsm/kg (285-295); Potassium 4.4 mmol/L (3.5-5.1); Sodium 138 mmol/L (136-145); Total Bilirubin 0.2 mg/dL (0.15-1.2); Total Protein 7.1 g/dL (6.6-8.7)
[2025-02-08 20:19] VITALS: BP 97/56; PULSE 77; O2SAT 96
--- NOTE | 2025-02-08 20:20 | USR_ITS ---
PROCEDURE INFORMATION: Exam: US First Trimester, Transabdominal and US , Transvaginal Exam date and time: 02/08/2025 10:05 PM Age: 34 years old Clinical indication: complicated by abdominal or pelvic pain; Right lower quadrant; First trimester (<14 weeks 0 days); Gestational age or lmp: 11w 0d by lmp; ; G5-p4-a0-l4 with rlq pain, no vaginal bleeding LABS AND CLINICAL REPORTS: Last menstrual period start date: 11/23/2024 Gestational age (Established): 11 w 0 d Estimated due date (Established): 08/30/2025 TECHNIQUE: Imaging protocol: Real-time transabdominal obstetrical ultrasound of the maternal pelvis and a first trimester , less than 14 weeks 0 days, with image documentation. Transvaginal imaging was used for better evaluation of the fetus, adnexa, and/or cervix. COMPARISON: US OB <= 14 weeks fetus [id number] 11/25/2021 1:35 PM FINDINGS: GESTATION: Gestation: Intrauterine gestation is visualized. pole is visualized. No yolk sac is visualized. Embryo/ cardiac activity (BPM): 155 bpm Extra-embryonic membranes/Placenta: Posterior forming placenta. Amniotic/Chorionic fluid: Amniotic and extra-amniotic fluid are normal for gestational age. BIOMETRY: Gestational age (AUA): 11 w 5 d Estimated due date (AUA): 08/25/2025 [place] rump length (CRL): 5.1 mm. EGA (CRL) is 11 w 5 d MATERNAL: Uterus: Uterus measures 12.38 cm x 8.73 cm x 7.03 cm. Cervix: Unremarkable. Endocervical canal is closed. Right ovary/adnexa: Right ovary measures 2.9 cm x 2.8 cm x 1.4 cm. Right ovarian volume is 5.9 mL. Left ovary/adnexa: Left ovary measures 3.7 cm x 3.5 cm x 2.3 cm. Left ovarian volume is 15.8 mL. Appendix: Tubular compressible structure in the right lower quadrant is believed to represent a normal appendix and measures 4 mm in diameter. Intraperitoneal space: No intraperitoneal free fluid. US/US OB <= 14 weeks fetus [id number] IMPRESSION: 1. Single live intrauterine gestation estimated at 11 weeks 5 days. 2. Normal-appearing appendix in the right lower quadrant.
--- NOTE | 2025-02-08 20:27 | ED_ITS ---
HPI - Abdominal Pain 2 General: Chief Complaint: Abdominal Pain Stated Complaint: lower abd pain Time Seen by Provider: 02/08/25 19:47 History of Present Illness: Patient is a female at approximately 12 weeks gestation presenting with right lower quadrant abdominal pain that started today at 11:00. She reports associated nausea and vomiting, with an episode of emesis noted upon arrival to ED. Patient reports having a fever at home of 99.8?F, though afebrile in ED. She describes discomfort with urination, specifically noting cramping pain rather than urethral symptoms. Patient had an early ultrasound at 7 weeks in [place] showing viable intrauterine . Of note, patient was seen in this ED last week for shoulder pain related to vomiting from food poisoning. She receives care from Dr. Marielle Cook in [place], approximately 3.5 hours away, after her local provider Dr. Ash left practice. Related Data Home Medications ?Medication ?Instructions ?Recorded ?Confirmed docosahexaenoic acid 200 mg mg PO 01/29/25 02/02/25 capsule ( DHA) labetalol 100 mg tablet mg PO 01/29/25 02/02/25 omeprazole 20 mg capsule,delayed 20 mg PO DAILY PRN release Previous Rx's ?Medication ?Instructions ?Recorded ondansetron 8 mg disintegrating 8 mg PO Q6H #14 tabs 1 tablet valacyclovir 500 mg tablet 500 mg PO DAILY #90 tabs Allergies Allergy/AdvReac Type Severity Reaction Status Date / Time kiwi Allergy Severe throat Verified 02/02/25 08:07 swelling naproxen Allergy Intermediate ALGY-Hives Verified 02/02/25 08:07 barley Allergy Unknown ALGY-Rash Verified 02/02/25 08:07 Yeast Allergy Unknown ALGY-Rash Verified 02/02/25 08:07 Beef Containing Products Allergy ALGY-Rash Verified 02/02/25 08:07 hydrocodone Allergy rash, hives Verified 02/02/25 08:07 Iodinated Contrast Media Allergy Unknown Verified 02/02/25 08:07 latex Allergy rash, hives Verified 02/02/25 08:07 nitrofurantoin (From Allergy rash, hives Verified 02/02/25 08:07 Macrobid) promethazine (From Phenergan) Allergy salas my Verified 02/02/25 08:07 body tramadol Allergy rash, hives Verified 02/02/25 08:07 PFSH ED 2 PFSH: Medical History Chronic migraine GERD (gastroesophageal reflux disease) Sinus arrhythmia No pertinent past medical history neghx:htn,dm,thyroid,dvt/pe PCP: Antonio Anxiety and depression Memory loss due to medical condition Gastroparesis Reports is idiopathic. Has been self treating associated nausea with marijuana. IBS (irritable bowel syndrome) more diarrhea Mitral valve prolapse Surgical History History of esophagogastroduodenoscopy (EGD) History of colonoscopy H/O laparoscopy (~2017) Albino-- for pelvic pain; no endometriosis, just IBS related History of tonsillectomy (~1996) H/O lumpectomy Left breast lumpectomy - benign per patient at age 15. Family History Mother Hypertension Hyperlipidemia Grandmother Stroke Paternal grandmother Breast cancer Paternal great grandmother Sister Thyroid disease Other Anxiety and depression Denies family history of Colon cancer Ovarian cancer Diabetes Arrhythmia Heart disease Hypercholesteremia Uterine cancer Social History Smoking and tobacco/nicotine status: former use of tobacco/nicotine Alcohol intake: never Substance/Drug Use: never Female Reproductive History: Para: 3 Physical Exam 2 Const: COMMON NORMALS: no acute distress, average body habitus, alert and well nourished GENERAL APPEARANCE: cooperative ORIENTATION/CONSCIOUSNESS: Yes awake HENMT: COMMON NORMALS: normocephalic and atraumatic HEAD & SCALP: n ormocephalic and atraumatic Eye: COMMON NORMALS: conjunctivae normal CONJUNCTIVA: Yes conjunctivae normal Neck/C-Spine: GENERAL: Yes normal visual inspection Resp: COMMON NORMALS: normal respiratory effort, No retractions and No use of accessory muscles Cardio: COMMON NORMALS: regular rhythm and Peripheral pulses 2+ throughout RHYTHM: regular rhythm PERIPHERAL PULSES: Peripheral pulses 2+ throughout GI: COMMON NORMALS: Soft to palpation and non-tender PALPATION: Yes Soft to palpation OTHER: Abdomen is soft and nondistended, very minimal right lower quadrant tenderness with palpation there is no guarding or rebound. Extremity: COMMON NORMALS: full ROM and no pedal edema Neuro: COMMON NORMALS: no focal motor deficits SENSORIUM/ORIENTATION: Yes alert Skin: COMMON NORMALS: no rashes or lesions noted GENERAL SKIN EXAM: no rashes or lesions noted Course 2 Vital Signs: Vital signs: Vital Signs Temperature 98.3 F 02/08/25 16:59 Pulse Rate 76 02/08/25 21:35 Respiratory Rate 14 02/08/25 21:35 Blood Pressure 103/55 02/08/25 21:35 Pulse Oximetry 99 02/08/25 21:35 Oxygen Delivery Me thod Room Air 02/08/25 21:35 MDM - Abdominal Pain Medical Decision Making Review of Systems: Constitutional: Positive for fever at home (99.8?F) Gastrointestinal: Positive for nausea, vomiting. Reports baseline IBS with chronic diarrhea Genitourinary: Positive for pain with urination Musculoskeletal: Recent shoulder pain All other systems reviewed and negative Medications: 1. Metoprolol for MVP 2. vitamins 3. Omeprazole 4. Zofran 5. Recently started on antibiotics for Group B Strep Allergies: No known allergies documented Past Medical History: 1. Mitral valve prolapse 2. Gastroparesis 3. Gastritis 4. Irritable Bowel Syndrome 5. History of endometriosis 6. - Previous uncomplicated vaginal deliveries Past Surgical History: Diagnostic laparoscopy for endometriosis Social History: Lives locally, receiving care in [place] Family History: No relevant family history documented Vital Signs: Vital signs reported as stable, afebrile in ED Physical Exam: General: Well-appearing, no acute distress Abdomen: Soft, non-distended, minimal right lower quadrant tenderness, no guarding or rebound Lab Results: Labs pending - Basic labs ordered Imaging and Other Relevant Results: Obstetric ultrasound ordered Medical Decision Making: Summary Statement: 12-week female presenting with right lower quadrant pain, nausea/vomiting, and dysuria requiring evaluation for possible appendicitis versus other acute abdominal pathology in setting of . Problem List: 1. Right lower quadrant abdominal pain 2. at 12 weeks 3. Nausea and vomiting 4. Dysuria Differential Diagnosis: 1. Appendicitis 2. Urinary tract infection 3. Round ligament pain 4. Ovarian cyst 5. Threatened ED Course: Patient to receive IV fluid hydration, basic laboratory studies, urinalysis, and obstetric ultrasound. CT avoided due to ; MRI would be considered if appendicitis strongly suspected. Assessment and Plan: 1. Right Lower Quadrant Pain: - IV fluid hydration - Basic labs and urinalysis 2. : - Currently at 12 weeks gestation - Will coordinate with OB if any concerning findings 3. Nausea/Vomiting: - IV hydration - Consider antiemetics if needed 4. Disposition pending workup results Patient CBC CMP and urinalysis are unremarkable. She denies any vaginal bleeding. Pelvic ultrasound shows a live intrauterine measuring over 11 weeks with a heart tones of 155 bpm. Appendix was visualized and appears normal and she had negative Tejeda sign on ultrasound. Given her benign labs, benign abdominal exam, normal vital signs and normal appendix on ultrasound do not feel that MRI of the abdomen pelvis is indicated. She was given reassurance and recommended follow-up with an heavy equipment operator/paver and provided return precautions. Lab Data I reviewed the patient's lab results. 02/08/25 19:14 02/08/25 19:14 Labs/Radiology: Laboratory Results WBC 10.58 10^3/uL (3.29-11.43) 02/08/25 19:14 RBC 3.26 10^6/uL (3.85-5.65) L 02/08/25 19:14 Hgb 10.60 g/dL (11.27-16.99) L 02/08/25 19:14 Hct 32.0 % (36-47) L 02/08/25 19:14 MCV 98.2 fl (85-98) H 02/08/25 19:14 MCH 32.5 pg (27-33) 02/08/25 19:14 MCHC 33.1 g/dL (30-55) 02/08/25 19:14 RDW 13.4 % (12.1-15.1) 02/08/25 19:14 Plt Count 231 10^3/cmm (157-399) 02/08/25 19:14 MPV 9.7 fL (7.4-10.4) 02/08/25 19:14 Neut % (Auto) 57.1 % 02/08/25 19:14 Lymph % (Auto) 32.2 % 02/08/25 19:14 [place] % (Auto) 6.8 % 02/08/25 19:14 Eos % (Auto) 2.4 % 02/08/25 19:14 Baso % (Auto) 0.9 % 02/08/25 19:14 Neut # (Auto) 6.05 10^3/uL (1.8-7.7) 02/08/25 19:14 Lymph # (Auto) 3.4 10^3/uL (0.8-4.8) 02/08/25 19:14 [place] # (Auto) 0.7 10^3/uL (0.2-0.9) 02/08/25 19:14 Eos # (Auto) 0.3 10^3/uL (0.0-0.8) 02/08/25 19:14 Baso # (Auto) 0.1 10^3/uL (0.0-0.1) 02/08/25 19:14 Nucleated RBC % (auto) 0 % 02/08/25 19:14 Nucleated RBCs # 0.0 /100WBC 02/08/25 19:14 Sodium 138 mmol/L (136-145) 02/08/25 19:14 Potassium 4.4 mmol/L (3.5-5.1) 02/08/25 19:14 Chloride 104 mmol/L (98-107) 02/08/25 19:14 Carbon Dioxide 22 mmol/L (22-29) 02/08/25 19:14 Anion Gap 16.4 (5-19) 02/08/25 19:14 BUN 9 mg/dL (6-20) 02/08/25 19:14 Creatinine 0.6 mg/dL (0.5-0.9) 02/08/25 19:14 GFR Calculation 113.1 mL/min (90-130) 02/08/25 19:14 Glucose 82 mg/dL (65-115) 02/08/25 19:14 Calculated Osmolality 284 mOsm/kg (285-295) L 02/08/25 19:14 Calcium 9.3 mg/dL (8.5-10.5) 02/08/25 19:14 Total Bilirubin 0.2 mg/dL (0.15-1.2) 02/08/25 19:14 AST 13 U/L (0-32) 02/08/25 19:14 ALT 11 U/L (0-33) 02/08/25 19:14 Alkaline Phosphatase 43 U/L (35-105) 02/08/25 19:14 Total Protein 7.1 g/dL (6.6-8.7) 02/08/25 19:14 Albumin 4.4 g/dL (3.5-5.2) 02/08/25 19:14 Globulin 2.7 g/dL (1.3-4.6) 02/08/25 19:14 HCG, Qual Positive (Negative) H 02/08/25 19:14 Urine Color Yellow (Yellow) 02/08/25 21:24 Urine Appearance Clear (CLEAR) 02/08/25 21:24 Urine pH 6.5 (5-7) 02/08/25 21:24 Ur Specific [place] 1.014 (1.005-1.030) 02/08/25 21:24 Urine Protein Negative (Negative) 02/08/25 21:24 Urine Glucose (UA) Negative (Normal) 02/08/25 21:24 Urine Ketones Negative (Negative) 02/08/25 21:24 Urine Blood Negative (Negative) 02/08/25 21:24 Urine Nitrate Negative (Negative) 02/08/25 21:24 Urine Bilirubin Negative (Negative) 02/08/25 21:24 Urine Urobilinogen 1.0 mg/dL (Negative) 02/08/25 21:24 Ur Leukocyte Esterase Negative (Negative) 02/08/25 21:24 Urine RBC 0-2 /hpf (0-2) 02/08/25 21:24 Urine WBC 0-5 /hpf (0-5) 02/08/25 21:24 Ur Squamous Epith Cells 0-5 /hpf (0-5) 02/08/25 21:24 Amorphous Sediment Not Reportable 02/08/25 21:24 Urine Bacteria None seen /hpf (NONE) 02/08/25 21:24 Hyaline Casts 0-4 /lpf H 02/08/25 21:24 All radiology interpretation(s) finalized by discharge Discharge Plan Discharge Patient Disposition: Home Clinical Impression: Abdominal pain affecting Condition: Stable Prescriptions: No Action valacyclovir 500 mg tablet 500 mg PO DAILY Qty: 90 1RF labetalol 100 mg tablet PO DHA 200 mg capsule PO omeprazole 20 mg capsule,delayed release(DR/EC) 20 mg PO DAILY PRN ondansetron 8 mg tablet,disintegrating 8 mg PO Q6H Qty: 14 0RF Rx Instructions: Take 1/2-1 tab every 6 hours as needed for nausea and vomiting Discharge Orders: Discharge ED (Routine); Ordered 02/08/25 Ordered By: Cedric Morse Referrals: Dimas Jaquez MD [Primary Care Provider, [facility]] Discharge Diet: Usual diet Discharge Activity: Resume usual activity Patient Instructions: Abdominal Pain in (ED), Pain Management Activity Restrictions/Additional Instructions: Continue home medications as previously directed. Take your vitamin with iron supplementation. Follow-up with your heavy equipment operator/paver as scheduled. Return for any concerns. Print Language: [place] Arabian Coding Level of Care Code ED Dental Scheduler for Agustin Vega
[2025-02-08] MEDS: sodium chloride 0.9% 1,000 ML 999 ML IV (20:46)
[2025-02-08 21:17] VITALS: BP 91/32; PULSE 64; O2SAT 99
[2025-02-08 21:35] VITALS: BP 103/55; PULSE 76; RESP 14; O2SAT 99
[2025-02-08 21:37] LABS: Bilirubin Urine Negative (Negative); Blood Urine Negative (Negative); Glucose Urine UA Negative (Normal); Ketones Urine Negative (Negative); Leukocyte Esterase Urine Negative (Negative); Nitrate Urine Negative (Negative); Protein Urine Negative (Negative); Specific Gravity, Urine 1.014 (1.005-1.030); Urine Appearance Clear (CLEAR); Urine Color Yellow (Yellow); pH Urine 6.5 (5-7)
[2025-02-08 21:46] LABS: Add Urine Microscopic? YES; Bacteria Urine None Seen /hpf; Hyaline Casts Urine 0-4 /lpf; RBC Urine 0-2 /hpf (0-2); Squamous Epithelial Cell Urine 0-5 /hpf (0-5); WBC Urine 0-5 /hpf (0-5)
[2025-02-08 22:42] VITALS: BP 103/65; PULSE 73; O2SAT 97
== END 2025-02-08 22:51 | disposition home or self-care (01) ==
PROVIDERS: Emergency Provider Student in an Organized Health Care Education/Training Program; PCP Family Medicine
DX: O26.891 Other specified pregnancy related conditions, first trimester (principal); Z3A.12 12 weeks gestation of pregnancy; Z87.891 Personal history of nicotine dependence
CPT/HCPCS: 36415; 76801; 80053; 81001; 84703; 85025; 96360; 96361; 99284; J7030

== ENCOUNTER 2025-07-01 12:43 | Outpatient (CLI) | payer OTHER, BC, MEDICAID, SELFPAY ==
[2025-07-01] VITALS (25 sets, daily range): BP systolic 92–119; BP diastolic 50–69; PULSE 76–108; O2SAT 98–100; BMI 25.2
[2025-07-01 13:11] LABS: Glucose Urine UA Negative (Normal); Nitrate Urine Negative (Negative); Specific Gravity, Urine 1.003 (1.005-1.030)
== END 2025-07-01 15:00 | disposition home or self-care (01) ==
LOC: OPOB 12:43 → OBGYN 12:44
PROVIDERS: PCP Family Medicine; Visit Provider Family Medicine
DX: O26.899 Other specified pregnancy related conditions, unspecified trimester (principal); Z3A.00 Weeks of gestation of pregnancy not specified; R10.9 Unspecified abdominal pain
CPT/HCPCS: 59025; 81001; 96372; 99211; J3105